=== PATIENT | female | born 1985 ===

== ENCOUNTER 2020-05-11 14:06 | Emergency (ER) | payer OTHER, SELFPAY | END 2020-05-11 18:09 | disposition left against medical advice (07) | PROVIDERS: Emergency Provider Emergency Medicine | DX: R10.30 Lower abdominal pain, unspecified (principal) ==

== ENCOUNTER 2020-05-15 15:39 | Emergency (ER) | payer OTHER, SELFPAY ==
[2020-05-15 15:51] VITALS: BP 152/80; PULSE 87; RESP 18; TEMP 36.8; O2SAT 99; BMI 27.3
--- NOTE | 2020-05-15 17:48 | ED.GENADULT ---
HPI - General Adult General Chief complaint: General Medical Stated complaint: Abdominal pain Time Seen by Provider: 05/15/20 17:21 Source: patient Mode of arrival: ambulatory Limitations: no limitations History of Present Illness HPI narrative: 34-year-old female with no significant past medical history presents with known STI exposure suspected to be chlamydia and herpes. Patient does describe vaginal pain and dysuria, without abnormal bleeding or discharge. Exposure occurred 4 days ago. She does not describe fevers, chills, chest pain or pressure, palpitations, shortness of breath, abdominal pain, abdominal distention, hematuria, and edema. Onset (ago): day(s) (4) Location: genitals Radiation: non-radiation Severity: moderate Severity scale (1-10): 6 Quality: burning Pain Consistency: constant Relieving factors: none Exacerbating factors: movement and other (Voiding) Associated symptoms: denies other symptoms Treatments prior to arrival: none Related Data Previous Rx's Medication Instructions Recorded oxycodone 5 mg PO Q8H PRN #7 tab 05/15/20 valacyclovir 1,000 mg PO Q12H 10 Days #20 tab 05/15/20 Allergies Allergy/AdvReac Type Severity Reaction Status Date / Time No Known Allergies Allergy Unverified 12/12/19 19:40 [No Known Allergies*] Review of Systems Review of Systems: Constitutional: No Fever, No Chills ENT/Mouth: No sore throat, No Rhinorrhea Eyes: No Eye Pain, No Redness Cardiovascular: No Chest Pain, No SOB Respiratory: No Cough, No Sputum, No Wheezing Gastrointestinal: Man Nausea, No Vomiting, No Diarrhea, no abdominal pain, Genitourinary: No irregular bleeding, No Dysuria, No Urinary Frequency, positive labia pain Musculoskeletal: No Myalgias Skin: No rash Neuro: No Weakness, No Headache Psych: No Anxiety/Panic, No Depression Heme/Lymph: No bruising, No Lymphadenopathy Endocrine: No Polyuria, No Polydipsia Yes all other systems are reviewed and are negative [facility] Past Medical History Attestation statement: The following information was validated with the patient. Source: old records reviewed Social History Social History Smoking Status: Current every day smoker Substance Use Type: Marijuana Advance Directives: No Advance Directives Information Provided: No Physical Exam Vital Signs: Vital Signs: Last Vital Signs Temp 98.3 F 05/15/20 15:51 Pulse 87 05/15/20 15:51 Resp 18 05/15/20 15:51 BP 152/80 H 05/15/20 15:51 Pulse Ox 99 05/15/20 15:51 Body Mass Index 27.3 Appearance: Alert. Oriented X3. No acute distress. Eyes: Pupils equal, round and reactive to light. ENT: Pharynx normal. Neck: Normal inspection. Neck supple. CVS: Normal heart rate and rhythm. Pulses normal. Respiratory: No respiratory distress. Breath sounds normal. Abdomen: Soft and nontender. Skin: Skin warm and dry. Normal skin color. Normal skin turgor. Extremities: No lower extremity edema. Neuro: No motor deficit. No sensory deficit. Course Course Course Narrative: 34-year-old female with no significant past history presents with known STI exposure. She does describe labial pain, denies abnormal bleeding or discharge. Her significant other has been having sex with other women, another woman called her earlier today to tell her that she has chlamydia and herpes. Plan is to treat and test for syphilis, chlamydia and gonorrhea. Will treat for her herpes simplex. She has her child with her and would like to defer pelvic exam. Risks discussed and accepted by patient. She will follow-up with [facility]. Patient verbalized understanding of and agrees to plan of care discharge home. Medical Decision Making Differential Diagnosis Differential Diagnosis: Chlamydia, gonorrhea, herpes, trichomoniasis, bacterial vaginosis, candidia Medical Records Medical records reviewed: Yes I reviewed the patient's medical records. Lab Data Lab results reviewed: Yes I reviewed the patient's lab results. Labs: Lab Results 05/15/20 05/15/20 Range/Units 17:45 18:50 Urine Color YELLOW Urine Appearance HAZY Urine pH 5.5 (5.0-8.0) Ur Specific [place] >= 1.030 H (1.005-1.025) Urine Protein NEG (NEG-TRACE) MG/DL Urine Glucose (UA) NEG (NEG) MG/DL Urine Ketones NEG (NEG) MG/DL Urine Blood NEG (NEG) Urine Nitrite NEG (NEG) Ur Leukocyte Esterase NEG (NEG) Urine Test NEGATIVE (NEGATIVE) T.pallidum Ab (EIA) Nonreactive (Nonreactive) Discharge Plan Discharge Clinical Impression: STI (sexually transmitted infection) Patient Disposition: Home, Self-Care Instructions: Sexually Transmitted Diseases (ED) Additional Instructions: You were evaluated and treated for sexually transmitted infection exposure. Please take medications as directed. Consider following up with [facility] for further workup. We treated you for chlamydia, gonorrhea, syphilis and herpes. You do not need further treatment for chlamydia, gonorrhea and syphilis. Please continue to take the valacyclovir as directed. Use oxycodone for pain management if Tylenol and Motrin are infective. Do not engage in sexual activity until all your symptoms have resolved. Thank you for choosing this emergency department for evaluation. Please follow-up with primary care physician as needed. Return to the emergency department for any new, concerning, or worsening symptoms. Prescriptions: New valacyclovir 1 gram tablet 1,000 mg PO Q12H 10 Days Qty: 20 RF: 0 oxycodone 5 mg tablet 5 mg PO Q8H PRN (Reason: pain) Qty: 7 RF: 0 Interventions: ED Discharge Assessment Last Done: 05/15/20 19:25 Discharge Date/Time: 05/15/20 19:40
[2020-05-15 17:59] LABS: Glucose Urine UA NEG (NEG); Leukocyte Esterase Urine NEG (NEG); Nitrite Urine NEG (NEG); PH 5.5 (5.0-8.0); Specific Gravity - Urine >= 1.030 (1.005-1.025); Urine Blood NEG (NEG); Urine Ketones NEG (NEG); Urine Protein NEG (NEG-TRACE)
[2020-05-15 18:01] LABS: Appearance Urine HAZY; Color Urine YELLOW; UPreg QC Valid YES; Urine Pregnancy NEGATIVE (NEGATIVE)
[2020-05-15] MEDS: Azithromycin 500 MG TABLET 1000 MG PO (18:12)
[2020-05-15] MEDS: oxyCODONE HCl Immed Release 5 MG TABLET PO (18:13)
[2020-05-15] MEDS: Penicillin G Benzathine 2,400,000 UNIT/4 ML SYRINGE 2400000 UNIT IM (18:14)
[2020-05-15] MEDS: cefTRIAXone sodium 500 MG, Lidocaine HCl 1 % MPF 1 ML IM (18:15)
[2020-05-15 19:37] LABS: Syphilis Screen Nonreactive (Nonreactive)
[2020-05-18 03:36] LABS: HBS Num1 > 1000.00 mIU/mL (0-7.99); HBc Num1 0.05 S/CO (0.00-0.79); HBsAGNum1 0.16 S/CO (0.00-0.99); HIV AB/AG Nonreactive (Nonreactive); HIV Num 1 0.06 S/CO (0.00-0.99); Hepatitis B Core Antibody Nonreactive (Nonreactive); Hepatitis B Surface Antigen Negative (Negative); ~HepC Num1 0.05 S/CO (0.00-0.79); ~Hepatitis B Surface Antibody REACTIVE (Nonreactive); ~Hepatitis C Antibody Nonreactive (Nonreactive)
[2020-05-18 18:11] LABS: C. trachomatis RNA TMA NOT DETECTED (NOT DETECTED); N. gonorrhoeae RNA TMA NOT DETECTED (NOT DETECTED)
[2020-05-21 07:47] LABS: ~Hepatitis A Antibody IgM Nonreactive (Nonreactive)
== END 2020-05-15 19:40 | disposition home or self-care (01) ==
PROVIDERS: Nurse Practitioner Family; Emergency Provider Internal Medicine
DX: A64 Unspecified sexually transmitted disease (principal); Z20.2 Contact with and (suspected) exposure to infections with a predominantly sexual mode of transmission; R10.2 Pelvic and perineal pain; F17.200 Nicotine dependence, unspecified, uncomplicated; Z71.6 Tobacco abuse counseling; F12.90 Cannabis use, unspecified, uncomplicated; Z79.899 Other long term (current) drug therapy
CPT/HCPCS: 36415; 81003; 81025; 86704; 86706; 86709; 86780; 86803; 87340; 87389; 87491; 87591; 96372; 99284; J0561; J0696

== ENCOUNTER 2020-09-02 21:43 | Emergency (ER) | payer OTHER, SELFPAY ==
--- NOTE | ~2020-09-02 | CT_ITS ---
EXAMINATION: CT ABDOMEN AND PELVIS WITHOUT CONTRAST CLINICAL INFORMATION: Right-sided abdominal/flank pain COMPARISON: 11/12/2019 TECHNIQUE: Multidetector volumetric imaging was performed from the superior aspect of the liver through the pubic symphysis. Sagittal and coronal reformatted images were obtained on the technologist's workstation. This CT examination was performed using dose optimization techniques as appropriate, variously including the following: *Automated exposure control *Adjustment of mA and/or kV according to patient size (this includes techniques or standardized protocols for targeted exams where dose is matched to indication/reason for exam; i.e. extremities or head) *Use of iterative reconstruction technique DLP: 544 mGy-cm FINDINGS: LUNG BASES: The visualized lung bases are unremarkable. LIVER, GALLBLADDER, AND BILIARY TREE: The liver is normal in size, shape, and attenuation. No focal hepatic lesion or biliary ductal dilatation is identified. The gallbladder is unremarkable with no evidence of radiopaque gallstones, gallbladder wall thickening, or obvious pericholecystic inflammatory changes. PANCREAS: Unremarkable. SPLEEN: Unremarkable. ADRENAL GLANDS: Unremarkable. KIDNEYS AND URETERS: The kidneys are normal in size, shape, and attenuation. No hydronephrosis, hydroureter, or calculi seen. No perinephric stranding. BLADDER: Nearly empty and not well evaluated. GASTROINTESTINAL TRACT: The small and large bowel are unremarkable. The appendix is unremarkable. No free fluid or free air is seen. ABDOMINAL WALL: No significant hernia is appreciated. LYMPH NODES: Normal. VASCULAR: Unremarkable. PELVIC VISCERA: Unremarkable. OSSEOUS STRUCTURES: Unremarkable. CT/CT abdomen pelvis wo con IMPRESSION: No acute findings identified in the abdomen/pelvis.
[2020-09-02 22:43] VITALS: BP 120/73; PULSE 113; RESP 28; TEMP 39.5; O2SAT 98; BMI 29.0
[2020-09-02 23:26] LABS: MANUAL DIFF FLAG NO
[2020-09-02 23:27] LABS: Basophils Percent Auto 0.1 % (0-2); Eosinophils Percent Auto 0.2 % (0-4); Hematocrit 38.8 % (37-47); Hemoglobin 12.9 g/dl (12.0-16.0); Imm Gran Abs Auto 0.03 X10*3/uL (0.00-0.03); Imm Gran Pct Auto 0.2 % (0.0-0.4); Lymphocytes Percent Auto 7.8 % (20-40); Mean Corpuscular HGB Conc 33.2 g/dl (31.0-35.0); Mean Corpuscular Hemoglobin 30.7 pg (27.0-33.0); Mean Corpuscular Volume 92.4 fL (80-98); Mean Platelet Volume 10.2 fL (9.4-12.3); Monocytes Absolute Auto 0.6 X10*3/uL (0.1-1.2); Monocytes Percent Auto 4.9 % (2-11); Neutrophils Absolute Auto 11.3 X10*3/uL (2.0-8.3); Neutrophils Percent Auto 86.8 % (45-73); Platelet Count 257 X10*3/uL (160-400); Red Cell Distribution Width 13.1 % (11.0-16.0)
[2020-09-02 23:31] LABS: Appearance Urine CLEAR; Color Urine YELLOW; Glucose Urine UA NEG (NEG); Leukocyte Esterase Urine 2+ (NEG); Nitrite Urine NEG (NEG); PH 5.5 (5.0-8.0); UACC Culture Trigger YES; Urine Blood 1+ (NEG); Urine Ketones NEG (NEG); Urine Protein NEG (NEG-TRACE)
[2020-09-02 23:32] LABS: UPreg QC Valid YES; Urine Pregnancy NEGATIVE (NEGATIVE)
--- NOTE | 2020-09-02 23:37 | ED.ABDPAIN ---
HPI - Abdominal Pain General Chief Complaint: Abdominal Pain Stated Complaint: NEAR SYNCOPE Time Seen by Provider: 09/02/20 23:34 History of Present Illness HPI narrative: Patient is a 34-year-old female presents today with having abdominal pain over the right flank area radiating to the right lower quadrant. Patient feels lightheaded. Leak. Having extreme abdominal pain that is very sharp. Patient positive for nausea. No vomiting. Does not think she is . No bloody stool. No coughing or congestion or upper respiratory symptoms. No diaphoresis. The pain is not worse with movement. Patient from home. Rates the pain is 10/10. It was very abrupt in onset. Never had similar pains in the past. Denies any history of kidney stone. No history of abdominal surgery in the past Related Data Previous Rx's Medication Instructions Recorded oxycodone 5 mg PO Q8H PRN #7 tab 05/15/20 valacyclovir 1,000 mg PO Q12H 10 Days #20 tab 05/15/20 ondansetron 4 mg PO TID PRN 5 Days #10 tab 09/03/20 sulfamethoxazole-trimethoprim 1 tab PO BID #14 tab 09/03/20 [Bactrim DS] Allergies Allergy/AdvReac Type Severity Reaction Status Date / Time No Known Allergies Allergy Unverified 12/12/19 19:40 [No Known Allergies*] Review of Systems Review of Systems Constitutional: No Weight loss, No Fever, No Chills, No Night Sweats, No Fatigue, No Malaise ENT/Mouth: No Hearing loss, No Ear Pain, No Nasal Congestion, No Sinus Pain, No Hoarseness, No sore throat, No Rhinorrhea, No Swallowing Difficulty Eyes: No Eye Pain, No Swelling, No Redness, No Foreign Body, No Discharge, No Vision Changes Cardiovascular: No Chest Pain, No SOB, No Dyspnea on Exertion, No Orthopnea, No Edema, No Palpitations Respiratory: No Cough, No Sputum, No Wheezing, No Smoke Exposure, No Dyspnea Gastrointestinal: No Nausea, No Vomiting, No Diarrhea, No Constipation, positive abdominal Pain, No Hematochezia, No Melena Genitourinary: no irregular bleeding, No Dysuria, No Urinary Frequency, No Hematuria, No Urinary Incontinence, No Urgency, No Flank Pain, No Urinary Flow Changes, No Hesitancy Musculoskeletal: No joint pain, No Myalgias, No Joint Swelling Skin: No Skin Lesions, No rash Neuro: No Weakness, No Numbness, No Paresthesias, No Loss of Consciousness, No Dizziness, No Headache Psych: No Anxiety/Panic, No Depression, No SI/HI/AH/VH, No Social Issues, Heme/Lymph: No Bruising, No Bleeding,No Lymphadenopathy Endocrine: No Polyuria, No Polydipsia, No Temperature Intolerance Physical Exam Vital Signs: Vital Signs: Last Vital Signs Temp 103.1 F H 09/02/20 22:43 Pulse 113 H 09/02/20 22:43 Resp 28 H 09/02/20 22:43 BP 120/73 09/02/20 22:43 Pulse Ox 98 09/02/20 22:43 Body Mass Index 29.0 Appearance: Alert. Oriented X3. No acute distress. Eyes: Pupils equal, round and reactive to light. ENT: Pharynx normal. Neck: Normal inspection. Neck supple. No lymph nodes noted. No crepitus CVS: Normal heart rate and rhythm. Pulses normal. Normal S1 and S2 Respiratory: No respiratory distress. Breath sounds normal. No Wheezing. No rales Abdomen: Soft and nontender. No rigidity. No distention. good BS x4 Skin: Skin warm and dry. Normal skin color. Normal skin turgor. Extremities: No lower extremity edema. Neurovascular intact to all extremities. No Lacerations. No Rash Neuro: Oriented X 3. No motor deficit. No sensory deficit. Moving all extermities. No slurred speech MDM - Abdominal Pain MDM Narrative Medical decision making narrative: Patient had nausea, abdominal pain radiating from the right flank to the right lower quadrant. Given IV fluids. White count slightly elevated at 13. Urine showed evidence of urinary tract infection. CT scan of the abdomen was grossly negative for any acute evidence of kidney stone. No evidence for appendicitis. No obstruction no abscess no perforation. Will discharge patient home on additional antibiotic. Patient has no real flank CVA tenderness. More likely urinary tract infection. We will go ahead and give patient Bactrim. Close follow-up on an outpatient basis. In stable condition. Zofran for nausea. Medical Records Attestation: I reviewed the patient's medical records. Lab Data Attestation: I reviewed the patient's lab results. Result diagrams: 09/02/20 23:19 09/02/20 23:19 Labs: Lab Results 09/02/20 09/02/20 09/02/20 Range/Units 23:19 23:19 23:19 WBC 13.0 H (4.8-10.8) X10*3/uL RBC 4.20 (4.20-5.50) X10*6/uL Hgb 12.9 (12.0-16.0) g/dl Hct 38.8 (37-47) % MCV 92.4 (80-98) fL MCH 30.7 (27.0-33.0) pg MCHC 33.2 (31.0-35.0) g/dl RDW 13.1 (11.0-16.0) % Plt Count 257 (160-400) X10*3/uL MPV 10.2 (9.4-12.3) fL Immature Gran % (Auto) 0.2 (0.0-0.4) % Neut % (Auto) 86.8 H (45-73) % Lymph % (Auto) 7.8 L (20-40) % [place] % (Auto) 4.9 (2-11) % Eos % (Auto) 0.2 (0-4) % Baso % (Auto) 0.1 (0-2) % Lymph # (Auto) 1.0 L (1.2-4.9) X10*3/uL [place] # (Auto) 0.6 (0.1-1.2) X10*3/uL Eos # (Auto) 0.0 (0.0-0.4) X10*3/uL Baso # (Auto) 0.0 (0.0-0.2) X10*3/uL Abs Immat Gran (auto) 0.03 (0.00-0.03) X10*3/uL Absolute Neuts (auto) 11.3 H (2.0-8.3) X10*3/uL Absolute Nucleated RBC 0.000 (0.0-0.012) X10*3/uL Nucleated RBC % (auto) 0.0 (0.0-0.2) /100WBC Sodium 137 (135-145) mmol/L Potassium 4.0 (3.3-5.1) mmol/L Chloride 105 (96-108) mmol/L Carbon Dioxide 22 (22-29) mmol/L Anion Gap 14 (12-20) BUN 7 L (9-16) mg/dL Creatinine 0.79 (0.5-1.4) mg/dL Estim Creat Clear Calc 88.0 Estimated GFR > 60 Random Glucose 101 (60-115) mg/dL Calcium 9.5 (8.4-10.2) mg/dL AST 23 (5-31) U/L ALT 22 (0-31) U/L Alkaline Phosphatase 65 (39-117) U/L Total Protein 7.0 (6.5-8.0) g/dL Albumin 4.6 (3.5-5.0) g/dL Lipase 26 (8-78) U/L Urine Color YELLOW Urine Appearance CLEAR Urine pH 5.5 (5.0-8.0) Ur Specific Fine 1.020 (1.005-1.025) Urine Protein NEG (NEG-TRACE) MG/DL Urine Glucose (UA) NEG (NEG) MG/DL Urine Ketones NEG (NEG) MG/DL Urine Blood 1+ H (NEG) Urine Nitrite NEG (NEG) Ur Leukocyte Esterase 2+ H (NEG) Urine RBC 5-9 H (0) /HPF Urine WBC 15-29 H (0-4) /HPF Ur Squamous Epith Cells 2+ /LPF Amorphous Sediment 1+ /LPF Urine Bacteria 1+ /LPF Urine Mucus 1+ /LPF Urine Test (NEGATIVE) 09/02/20 Range/Units 23:19 WBC (4.8-10.8) X10*3/uL RBC (4.20-5.50) X10*6/uL Hgb (12.0-16.0) g/dl Hct (37-47) % MCV (80-98) fL MCH (27.0-33.0) pg MCHC (31.0-35.0) g/dl RDW (11.0-16.0) % Plt Count (160-400) X10*3/uL MPV (9.4-12.3) fL Immature Gran % (Auto) (0.0-0.4) % Neut % (Auto) (45-73) % Lymph % (Auto) (20-40) % [place] % (Auto) (2-11) % Eos % (Auto) (0-4) % Baso % (Auto) (0-2) % Lymph # (Auto) (1.2-4.9) X10*3/uL [place] # (Auto) (0.1-1.2) X10*3/uL Eos # (Auto) (0.0-0.4) X10*3/uL Baso # (Auto) (0.0-0.2) X10*3/uL Abs Immat Gran (auto) (0.00-0.03) X10*3/uL Absolute Neuts (auto) (2.0-8.3) X10*3/uL Absolute Nucleated RBC (0.0-0.012) X10*3/uL Nucleated RBC % (auto) (0.0-0.2) /100WBC Sodium (135-145) mmol/L Potassium (3.3-5.1) mmol/L Chloride (96-108) mmol/L Carbon Dioxide (22-29) mmol/L Anion Gap (12-20) BUN (9-16) mg/dL Creatinine (0.5-1.4) mg/dL Estim Creat Clear Calc Estimated GFR Random Glucose (60-115) mg/dL Calcium (8.4-10.2) mg/dL AST (5-31) U/L ALT (0-31) U/L Alkaline Phosphatase (39-117) U/L Total Protein (6.5-8.0) g/dL Albumin (3.5-5.0) g/dL Lipase (8-78) U/L Urine Color Urine Appearance Urine pH (5.0-8.0) Ur Specific Fine (1.005-1.025) Urine Protein (NEG-TRACE) MG/DL Urine Glucose (UA) (NEG) MG/DL Urine Ketones (NEG) MG/DL Urine Blood (NEG) Urine Nitrite (NEG) Ur Leukocyte Esterase (NEG) Urine RBC (0) /HPF Urine WBC (0-4) /HPF Ur Squamous Epith Cells /LPF Amorphous Sediment /LPF Urine Bacteria /LPF Urine Mucus /LPF Urine Test NEGATIVE (NEGATIVE) Discharge Plan Discharge Clinical Impression: Urinary tract infection, Dehydration Patient Disposition: Home, Self-Care Instructions: Dehydration (ED), Urinary Tract Infection in Women (ED) Prescriptions: New sulfamethoxazole-trimethoprim [Bactrim DS] 800-160 mg tablet 1 tab PO BID Qty: 14 RF: 0 ondansetron 4 mg tablet,disintegrating 4 mg PO TID PRN (Reason: nausea and vomiting) 5 Days Qty: 10 RF: 0 No Action valacyclovir 1 gram tablet 1,000 mg PO Q12H 10 Days Qty: 20 RF: 0 oxycodone 5 mg tablet 5 mg PO Q8H PRN (Reason: pain) Qty: 7 RF: 0 PMFSH Past Medical History Medical History No known health problems Social History Social History Substance Use Type: Marijuana Advance Directives: No Advance Directives Information Provided: No Patient : No
[2020-09-02 23:39] LABS: Amorphous Sediment Urine 1+ /LPF; Bacteria Urine 1+ /LPF; Mucus Urine 1+ /LPF; Squamous Epithelial Cell Urine 2+ /LPF; UACC CULT YES
[2020-09-02] MEDS: Ketorolac Tromethamine 15 MG/ML VIAL IV (23:50)
[2020-09-02] MEDS: 0.9 % Sodium Chloride 1,000 ML 999 ML IV (23:50)
--- NOTE | 2020-09-02 23:55 | PC.NURSE ---
iv placed to LAC, LABS DRAWN TO LAB. PT AWAITING FOR CT. WILL CONTINUE TO MONTIOR PT.
[2020-09-03 01:39] LABS: Alanine Aminotransferase 22 U/L (0-31); Albumin Level 4.6 g/dL (3.5-5.0); Alkaline Phosphatase 65 U/L (39-117); Anion Gap 14 (12-20); Aspartate Amino Transferase 23 U/L (5-31); Blood Urea Nitrogen 7 mg/dL (9-16); Calcium 9.5 mg/dL (8.4-10.2); Carbon Dioxide 22 mmol/L (22-29); Chloride 105 mmol/L (96-108); Estimated Glomerular Filt Rate > 60; Glucose Random 101 mg/dL (60-115); Lipase 26 U/L (8-78); Sodium 137 mmol/L (135-145)
[2020-09-03 01:40] LABS: Bilirubin Total 0.5 mg/dL (0.0-1.0)
[2020-09-03 01:59] VITALS: PULSE 89; RESP 16
[2020-09-03] MEDS: cefTRIAXone sodium 1 GM in 0.9 % Sodium Chloride 50 ML IV (02:04)
--- NOTE | 2020-09-03 02:09 | PC.NURSE ---
PT MEDICATED PER EMAR. IV REMOVED INTACT. PT VERBALIZED U/S OF D/C INSTRUCTIONS AND LEFT ED AMBULATORY WITH FAMILY.
== END 2020-09-03 02:13 | disposition home or self-care (01) ==
PROVIDERS: Emergency Provider Emergency Medicine Emergency Medical Services; PCP Physician Assistant Medical
DX: N39.0 Urinary tract infection, site not specified (principal); E86.0 Dehydration
CPT/HCPCS: 36415; 74176; 80053; 81001; 81025; 83690; 85025; 87086; 87088; 87186; 96361; 96365; 96374; 99284; J0696; J1885

== ENCOUNTER 2020-09-04 11:59 | Emergency (ER) | payer OTHER, SELFPAY ==
[2020-09-04 13:20] VITALS: BP 129/73; PULSE 92; RESP 18; TEMP 37.1; O2SAT 98; BMI 28.3
[2020-09-04 15:16] VITALS: BP 122/72; PULSE 82; RESP 20; TEMP 37.3; O2SAT 99
--- NOTE | 2020-09-04 15:38 | ED.NAVMDI ---
HPI - Nausea/Vomiting/Diarrhea General Chief complaint: Abdominal Pain Stated complaint: r side abd pain quest uti Time Seen by Provider: 09/04/20 15:12 Source: patient and old records reviewed Mode of arrival: ambulatory Limitations: no limitations History of Present Illness HPI Narrative: 34 yo female with hx of gastritis, dx with UTI on 09/02 started on bactrim states it flared her gastritis and she cannot take it now with n/v - had CT scan at that time as well negative for stones MD elicited complaint: nausea, vomiting and abdominal pain Pertinent past history: other (gastritis) Onset (ago): day(s) (2) Associated nausea: Yes Associated abdominal pain: Yes Location of pain: epigastric and RUQ Radiation: diffuse Pain consistency: constant Severity: moderate Quality: sharp Exacerbating factors: eating and medication Relieving factors: none Context: recent antibiotic use Associated symptoms: loss of appetite, malaise and nausea/vomiting Related Data Previous Rx's Medication Instructions Recorded oxycodone 5 mg PO Q8H PRN #7 tab 05/15/20 valacyclovir 1,000 mg PO Q12H 10 Days #20 tab 05/15/20 ondansetron 4 mg PO TID PRN 5 Days #10 tab 09/03/20 sulfamethoxazole-trimethoprim 1 tab PO BID #14 tab 09/03/20 [Bactrim DS] Allergies Allergy/AdvReac Type Severity Reaction Status Date / Time No Known Allergies Allergy Verified 09/04/20 13:19 [No Known Allergies*] Review of Systems Review of Systems: Constitutional : No Weight loss, No Fever, No Chills ENT/Mouth : No sore throat, No Rhinorrhea Eyes: No Swelling, No Redness Cardiovascular : No Chest Pain, No SOB, NoEdema Respiratory : No Cough, No Sputum, No Wheezing Gastrointestinal : Positive Nausea, Positive Vomiting, no Diarrhea, positive abdominal Pain, No Hematochezia, No Melena Genitourinary : No Dysuria, pos Urinary Frequency, No Hematuria, No Urgency Musculoskeletal : No joint pain, No Myalgias, No Joint Swelling Skin : No Skin Lesions, No rash Neuro : No Weakness, No Numbness, No Dizziness, No Headache Psych : No Anxiety/Panic, No Depression Heme/Lymph: No Bruising, No Lymphadenopathy Endocrine : No Polyuria, No Polydipsia All other systems reviewed and are negative. Gastrointestinal: Gastrointestinal: Reports nausea PMFSH Past Medical History Medical History No known health problems Social History Social History Substance Use Type: Marijuana Advance Directives: No Advance Directives Information Provided: Yes Patient : No Physical Exam Vital Signs: Vital Signs: Last Vital Signs Temp 99.2 F 09/04/20 15:16 Pulse 82 09/04/20 15:16 Resp 20 09/04/20 15:16 BP 122/72 09/04/20 15:16 Pulse Ox 99 09/04/20 15:16 Body Mass Index 28.3 Appearance: Alert. Oriented X3. No acute distress. Anxious Eyes: Pupils equal, round and reactive to light. ENT: Pharynx normal. Neck: Normal inspection. Neck supple. CVS: Normal heart rate and rhythm. Pulses normal. Respiratory: No respiratory distress. Breath sounds normal. Abdomen: Soft and moderate epigastric/RUQ ttp no rebound or guarding Skin: Skin warm and dry. Normal skin color. Normal skin turgor. Extremities: No lower extremity edema. No calf ttp Neuro: Oriented X 3. No motor deficit. No sensory deficit. Course Course Course Narrative: signed out to Dr. Garcia pending workup MDM - Nausea/Vomiting/Diarrhea MDM Narrative Medical decision making narrative: 34 yo female with hx of gastritis, dx with UTI on 09/02 started on bactrim states it flared her gastritis and she cannot take it now with n/v - had CT scan at that time as well negative for stones at this time likely bactrim flared her gastritis given states this is typical for her - at this time anti emetics, IVF, IV rocephin ordered GNR in initial urine culture, switch her from bactrim to ceftin, just had CT scan of abdomen - dispo per results and findings. Lab Data Result diagrams: 09/04/20 15:56 09/04/20 15:56 Discharge Plan Discharge Clinical Impression: Abdominal pain Qualifiers: Abdominal location: epigastric Qualified Code(s): R10.13 - Epigastric pain UTI (urinary tract infection) Qualifiers: Urinary tract infection type: acute cystitis Hematuria presence: without hematuria Qualified Code(s): N30.00 - Acute cystitis without hematuria Prescriptions: No Action valacyclovir 1 gram tablet 1,000 mg PO Q12H 10 Days Qty: 20 RF: 0 oxycodone 5 mg tablet 5 mg PO Q8H PRN (Reason: pain) Qty: 7 RF: 0 sulfamethoxazole-trimethoprim [Bactrim DS] 800-160 mg tablet 1 tab PO BID Qty: 14 RF: 0 ondansetron 4 mg tablet,disintegrating 4 mg PO TID PRN (Reason: nausea and vomiting) 5 Days Qty: 10 RF: 0
[2020-09-04 16:05] LABS: MANUAL DIFF FLAG NO
[2020-09-04 16:06] LABS: Basophils Percent Auto 0.1 % (0-2); Eosinophils Percent Auto 0.2 % (0-4); Hematocrit 37.8 % (37-47); Hemoglobin 12.7 g/dl (12.0-16.0); Imm Gran Abs Auto 0.05 X10*3/uL (0.00-0.03); Imm Gran Pct Auto 0.4 % (0.0-0.4); Lymphocytes Absolute Auto 1.2 X10*3/uL (1.2-4.9); Lymphocytes Percent Auto 8.7 % (20-40); Mean Corpuscular HGB Conc 33.6 g/dl (31.0-35.0); Mean Corpuscular Hemoglobin 30.8 pg (27.0-33.0); Mean Corpuscular Volume 91.7 fL (80-98); Mean Platelet Volume 10.4 fL (9.4-12.3); Monocytes Percent Auto 7.7 % (2-11); Neutrophils Percent Auto 82.9 % (45-73); Platelet Count 248 X10*3/uL (160-400); Red Blood Count 4.12 X10*6/uL (4.20-5.50); Red Cell Distribution Width 13.2 % (11.0-16.0); White Blood Count 13.3 X10*3/uL (4.8-10.8)
[2020-09-04] MEDS: Metoclopramide HCl 10 MG/2 ML VIAL IVPUSH (16:23)
[2020-09-04] MEDS: cefTRIAXone sodium 1 GM in 0.9 % Sodium Chloride 50 ML IV (16:23)
[2020-09-04] MEDS: 0.9 % Sodium Chloride 1,000 ML 999 ML IVCONT ×2 (16:23→18:28)
[2020-09-04] MEDS: Famotidine/PF 20 MG/2 ML VIAL IVPUSH (16:24)
[2020-09-04] MEDS: diphenhydrAMINE HCL 50 MG/ML VIAL 25 MG IVPUSH (16:24)
[2020-09-04] MEDS: Phenazopyridine HCL 100 MG TABLET PO (16:24)
[2020-09-04 16:29] LABS: Lactic Acid 1.2 mmol/L (0.5-2.0)
[2020-09-04 16:31] LABS: Alanine Aminotransferase 48 U/L (0-31); Albumin Level 4.6 g/dL (3.5-5.0); Alkaline Phosphatase 70 U/L (39-117); Anion Gap 15 (12-20); Aspartate Amino Transferase 35 U/L (5-31); Bilirubin Direct 0.2 mg/dL (0.0-0.5); Bilirubin Total 0.3 mg/dL (0.0-1.0); Blood Urea Nitrogen 7 mg/dL (9-16); Calcium 9.3 mg/dL (8.4-10.2); Carbon Dioxide 24 mmol/L (22-29); Chloride 105 mmol/L (96-108); Creatinine Clr Calc Pharmacy 89.1; Estimated Glomerular Filt Rate > 60; Glucose Random 108 mg/dL (60-115); Lipase 14 U/L (8-78); Magnesium 2.3 mg/dL (1.6-2.6); Potassium 3.8 mmol/L (3.3-5.1); Sodium 140 mmol/L (135-145); Total Protein 7.4 g/dL (6.5-8.0)
[2020-09-04 16:58] VITALS: BP 148/88; PULSE 74; RESP 18; O2SAT 99
[2020-09-04] MEDS: LORazepam 2 MG/ML VIAL 1 MG IVPUSH (18:27)
[2020-09-04] MEDS: Prochlorperazine Edisylate 10 MG/2 ML VIAL IVPUSH (18:28)
== END 2020-09-04 21:15 | disposition home or self-care (01) ==
PROVIDERS: Emergency Medicine; Emergency Provider Internal Medicine; PCP Physician Assistant Medical
DX: N30.00 Acute cystitis without hematuria (principal); K29.50 Unspecified chronic gastritis without bleeding; F12.90 Cannabis use, unspecified, uncomplicated
CPT/HCPCS: 36415; 80048; 80076; 83605; 83690; 83735; 85025; 87040; 96361; 96365; 96375; 99284; J0696; J1200; J2060; J2765

== ENCOUNTER 2021-10-06 12:42 | Emergency (ER) | payer OTHER, SELFPAY ==
[2021-10-06 13:07] VITALS: BP 114/56; PULSE 100; RESP 16; TEMP 36.6; O2SAT 100; BMI 26.2
[2021-10-06] MEDS: Ibuprofen 600 MG TABLET PO (13:15)
--- NOTE | 2021-10-06 13:37 | ECG_ITS ---
Test Reason : anxiety Blood Pressure : / mmHG Vent. Rate : 074 BPM Atrial Rate : 074 BPM P-R Int : 138 ms QRS Dur : 072 ms QT Int : 362 ms P-R-T Axes : -05 086 043 degrees QTc Int : 401 ms Normal sinus rhythm Normal ECG No previous ECGs available Referred By: Vicki Bales Electronically Signed By:MARICEL DIAS MD
--- NOTE | 2021-10-06 13:44 | ED_ITS ---
HPI - General Adult General Chief complaint: General Medical Stated complaint: R SIDED STIFFNESS Time Seen by Provider: 10/06/21 13:29 Source: patient Mode of arrival: ambulatory History of Present Illness HPI narrative: 35-year-old female with past medical history anxiety presenting to the ED complaining of right-sided shoulder/trapezius muscle pain radiating to right neck since yesterday. Admits woke up with the pain, denies direct trauma, injury or fall. Also reports increasing anxiety and decreased sleep at home. Denies chest pain, numbness, tingling, weakness, headache, lightheadedness/dizziness Onset (ago): day(s) Related Data Previous Rx's Medication Instructions Recorded oxycodone 5 mg tablet 5 mg PO Q8H PRN pain #7 tabs 05/15/20 valacyclovir 1 gram tablet 1,000 mg PO Q12H 10 days #20 tabs 05/15/20 ondansetron 4 mg disintegrating 4 mg PO TID PRN nausea and 09/03/20 tablet vomiting 5 days #10 tabs sulfamethoxazole 800 1 tab PO BID uti #14 tabs 09/03/20 mg-trimethoprim 160 mg tablet (Bactrim DS) cefuroxime axetil 500 mg tablet 500 mg PO BID 10 days #20 tabs 09/04/20 lorazepam 1 mg tablet (Ativan) 1 mg PO BID PRN anxiety #14 tabs 09/04/20 acetaminophen 500 mg tablet 500 mg PO Q6H PRN fever or pain 10/06/21 (Tylenol Extra Strength) #14 tabs cyclobenzaprine 5 mg tablet 5 mg PO Q8H PRN pain (scale score 10/06/21 7-10) 5 days #14 tabs lidocaine 5 % topical patch 1 patch topical DAILY PRN pain #30 10/06/21 (Lidoderm) ea naproxen 500 mg tablet 500 mg PO BID PRN pain 10 days #20 10/06/21 tabs Allergies Allergy/AdvReac Type Severity Reaction Status Date / Time No Known Allergies Allergy Verified 09/04/20 13:19 [No Known Allergies*] Review of Systems Review of Systems: Constitutional: No Weight loss, No Fever, No Chills ENT/Mouth: No Ear Pain, No Nasal Congestion, No Hoarseness, No sore throat, No Rhinorrhea, No Swallowing Difficulty Cardiovascular: No Chest Pain, No SOB Respiratory: No Cough, No Sputum Gastrointestinal: No Nausea, No Vomiting, No Diarrhea, No Constipation, No Abdominal pain Genitourinary: No Dysuria, No Urinary Frequency, No Hematuria, No Urinary Incontinence/retention, No Flank Pain Musculoskeletal: + joint pain, No Myalgias, No Joint Swelling Skin: No Skin Lesions, No rash Neuro: No Weakness, No Numbness, No Paresthesias Psych: +anxiety Yes all other systems are reviewed and are negative [facility] Past Medical History Attestation statement: The following information was validated with the patient. Medical History No known health problems Social History Social History Alcohol intake: never Patient Tobacco Use Status: Tobacco use Unknown Substance Use Type: Marijuana Advance Directives: No Advance Directives Information Provided: No Physical Exam ED Vital Signs: Vital Signs - 24 hr 10/06/21 13:07 Temperature 97.8 F Pulse Rate 100 Respiratory Rate 16 Blood Pressure 114/56 L Pulse Oximetry 100 Oxygen Delivery Method Room Air BMI result Body Mass Index 26.2 Const General: cooperative, healthy appearing and no acute distress Orientation/consciousness: patient oriented x3 Limitations: no limitations HENMT Head: Yes normal to inspection and Yes atraumatic Ears: hearing grossly normal bilaterally General nose exam: Normal external nose present Face and sinus: Yes normal facial exam Eyes General: appearance normal, both eyes and all related structures EOM: EOMs intact bilaterally Neck Other: No midline cervical spinous tenderness/diaper for deformity. + right-sided cervical MSK tenderness and right trapezius muscle tenderness/spasming reproducing subjective complaints Neck: Yes normal visual inspection, Yes no meningeal signs and No anterior neck swelling Chest Chest palpation & inspection: normal inspection of the chest, no crepitus and tenderness (Right anterior chest wall, reproducing subjective complaint) Resp Effort & Inspection: normal respiratory effort and no respiratory distress Auscultation: clear to auscultation bilaterally Cardio Rate: regular rate Heart sounds: S1 normal heart sound present and S2 normal heart sound present Peripheral pulses: radial pulses present Back/Spine/Pelvis Other: No midline thoracic/lumbar spinous tenderness/step-off or deformity Skin Rashes: no rashes Wounds: no wounds Neuro General: patient oriented x3, tone normal and no meningeal signs Gait exam (Neuro): Normal gait present Motor exam (neuro): 5/5 motor strength present throughout Extrem General: Yes normal to inspection Psych Affect: Anxious affect present Course Course Course Narrative: Patient requesting anxiolytic, discussed cannot give both Valium and anxiolytics, to follow-up with her PCP. She verbalized understanding Medical Decision Making MDM Narrative Medical decision making narrative: 35-year-old female with past medical history anxiety presenting to the ED complaining of right-sided shoulder/trapezius muscle pain radiating to right neck since yesterday. On exam vital signs stable, NAD/nontoxic-appearing, physical exam as above, consistent with MSK spasming/strain. Low concern for fracture, meningitis/encephalitis, cervical dissection or CVT. Symptoms atypical for ACS Plan: Pain management, EKG Medical Records Medical records reviewed: Yes I reviewed the patient's medical records. Lab Data Lab results reviewed: Yes I reviewed the patient's lab results. ECG Data Attestation: I personally reviewed and interpreted this ECG as follows: Interpretation: EKG normal sinus rhythm at a rate of 74. QRS 72. QTC 401. Discharge Plan Discharge Clinical Impression: Trapezius muscle spasm Patient Disposition: Home, Self-Care Additional Instructions: Your pain is likely musculoskeletal Flexeril is a muscle relaxer, take at night as it makes you drowsy, do not drive, drink alcohol, or operate machinery while taking it Naproxen as an anti-inflammatory / pain medication, take with food Lidoderm patches are numbing patches, apply to painful area In addition take Tylenol at home If symptoms persist or worsen, pain becomes unbearable, you developed urinary retention or incontinence, or weakness return to the ED Prescriptions: New acetaminophen [Tylenol Extra Strength] 500 mg tablet 500 mg PO Q6H PRN (Reason: fever or pain) Qty: 14 0RF lidocaine [Lidoderm] 5 % adhesive patch,medicated 1 patch topical DAILY MDD remove after 12 hours PRN (Reason: pain) Qty: 30 0RF Rx Instructions: leave on most painful area for up to 12 hrs naproxen 500 mg tablet 500 mg PO BID PRN (Reason: pain) 10 Days Qty: 20 0RF cyclobenzaprine 5 mg tablet 5 mg PO Q8H PRN (Reason: pain (scale score 7-10)) 5 Days Qty: 14 0RF No Action valacyclovir 1 gram tablet 1,000 mg PO Q12H 10 Days Qty: 20 0RF oxycodone 5 mg tablet 5 mg PO Q8H PRN (Reason: pain) Qty: 7 0RF sulfamethoxazole-trimethoprim [Bactrim DS] 800-160 mg tablet 1 tab PO BID Qty: 14 0RF ondansetron 4 mg tablet,disintegrating 4 mg PO TID PRN (Reason: nausea and vomiting) 5 Days Qty: 10 0RF cefuroxime axetil 500 mg tablet 500 mg PO BID 10 Days Qty: 20 0RF lorazepam [Ativan] 1 mg tablet 1 mg PO BID PRN (Reason: anxiety) Qty: 14 0RF Referrals: Kamila García PA [Primary Care Provider] -
[2021-10-06] MEDS: diazePAM 2 MG TABLET 5 MG PO (14:07)
[2021-10-06] MEDS: Lidocaine 4 % Patch ADH..PATCH 1 PATCH TRANSDERMA (14:07)
== END 2021-10-06 14:39 | disposition home or self-care (01) ==
PROVIDERS: Emergency Provider Emergency Medicine; PCP Physician Assistant Medical
DX: M62.838 Other muscle spasm (principal); M25.511 Pain in right shoulder; F41.9 Anxiety disorder, unspecified; F12.90 Cannabis use, unspecified, uncomplicated; Z79.899 Other long term (current) drug therapy
CPT/HCPCS: 93005; 99283

== ENCOUNTER 2021-12-12 14:44 | Emergency (ER) | payer OTHER, SELFPAY ==
--- NOTE | 2021-12-12 14:45 | ECG_ITS ---
Test Reason : CHEST PAIN Blood Pressure : / mmHG Vent. Rate : 087 BPM Atrial Rate : 087 BPM P-R Int : 128 ms QRS Dur : 070 ms QT Int : 338 ms P-R-T Axes : 000 080 025 degrees QTc Int : 406 ms Normal sinus rhythm Normal ECG When compared with ECG of 06-OCT-2021 13:58, No significant change was found Referred By: Generic ED Physician Electronically Signed By:LUIS MENDOZA
[2021-12-12 14:46] VITALS: BP 128/72; PULSE 91; RESP 18; TEMP 37.5; O2SAT 100; BMI 26.4
[2021-12-12 15:01] LABS: MANUAL DIFF FLAG NO
[2021-12-12 15:03] LABS: Basophils Percent Auto 0.1 % (0-2); Eosinophils Absolute Auto 0.1 X10*3/uL (0.0-0.4); Eosinophils Percent Auto 0.8 % (0-4); Hematocrit 37.5 % (37.0-47.0); Hemoglobin 12.5 g/dl (12.0-16.0); Imm Gran Abs Auto 0.04 X10*3/uL (0.00-0.03); Imm Gran Pct Auto 0.4 % (0.0-0.4); Lymphocytes Absolute Auto 2.3 X10*3/uL (1.2-4.9); Lymphocytes Percent Auto 22.1 % (20-40); Mean Corpuscular HGB Conc 33.3 g/dl (31.0-35.0); Mean Corpuscular Hemoglobin 31.1 pg (27.0-33.0); Mean Corpuscular Volume 93.3 fL (80.0-98.0); Mean Platelet Volume 9.9 fL (9.4-12.3); Monocytes Absolute Auto 0.6 X10*3/uL (0.1-1.2); Monocytes Percent Auto 5.9 % (2-11); Neutrophils Absolute Auto 7.2 x10*3/uL (2.0-8.3); Neutrophils Percent Auto 70.7 % (45-73); Platelet Count 272 X10*3/uL (160-400); Red Blood Count 4.02 X10*6/uL (4.20-5.50); White Blood Count 10.2 X10*3/uL (4.8-10.8)
[2021-12-12 15:19] LABS: Alanine Aminotransferase 37 U/L (0-31); Albumin Level 4.2 g/dL (3.5-5.0); Alkaline Phosphatase 70 U/L (39-117); Anion Gap 14 (12-20); Aspartate Amino Transferase 21 U/L (5-31); Bilirubin Direct < 0.2 mg/dL (0.0-0.5); Bilirubin Total 0.2 mg/dL (0.0-1.0); Blood Urea Nitrogen 12 mg/dL (9-16); Calcium 9.3 mg/dL (8.4-10.2); Carbon Dioxide 27 mmol/L (22-29); Chloride 103 mmol/L (96-108); Creatinine Clr Calc Pharmacy 95.7; Estimated Glomerular Filt Rate > 60; Glucose Random 82 mg/dL (60-115); Potassium 4.3 mmol/L (3.3-5.1); Sodium 140 mmol/L (135-145); Strep A Nucleic Acid Negative (Negative); Total Protein 6.6 g/dL (6.5-8.0)
[2021-12-12 15:24] LABS: Troponin-I High Sensitivity < 3.5 ng/L (<3.5-17.0)
[2021-12-12 15:30] LABS: COVID-19 Test Negative (Negative); IDNOW Serial# 08D9AD1C
[2021-12-12 22:00] VITALS: BP 130/88; PULSE 88; RESP 18; O2SAT 100
[2021-12-12 22:52] LABS: D Dimer High Sensitivity < 150 NG/ML
--- NOTE | 2021-12-13 00:06 | ED_ITS ---
HPI - Chest Pain General Chief Complaint: Chest Pain Stated Complaint: chest pain, sore throat, ears hurt Time Seen by Provider: 12/12/21 22:22 Source: patient Mode of arrival: ambulatory History of Present Illness HPI narrative: 36-year-old female without significant past medical history but has complaints of 3 days of chest discomfort with coughing, malaise, sore throat and congestion. She does report a positive COVID-19 exposure. Otherwise, she denies any fever chills or shortness of breath and denies any GI or symptoms. Related Data Previous Rx's Medication Instructions Recorded oxycodone 5 mg tablet 5 mg PO Q8H PRN pain #7 tabs 05/15/20 valacyclovir 1 gram tablet 1,000 mg PO Q12H 10 days #20 tabs 05/15/20 ondansetron 4 mg disintegrating 4 mg PO TID PRN nausea and 09/03/20 tablet vomiting 5 days #10 tabs sulfamethoxazole 800 1 tab PO BID uti #14 tabs 09/03/20 mg-trimethoprim 160 mg tablet (Bactrim DS) cefuroxime axetil 500 mg tablet 500 mg PO BID 10 days #20 tabs 09/04/20 lorazepam 1 mg tablet (Ativan) 1 mg PO BID PRN anxiety #14 tabs 09/04/20 acetaminophen 500 mg tablet 500 mg PO Q6H PRN fever or pain 10/06/21 (Tylenol Extra Strength) #14 tabs cyclobenzaprine 5 mg tablet 5 mg PO Q8H PRN pain (scale score 10/06/21 7-10) 5 days #14 tabs lidocaine 5 % topical patch 1 patch topical DAILY PRN pain #30 10/06/21 (Lidoderm) ea naproxen 500 mg tablet 500 mg PO BID PRN pain 10 days #20 10/06/21 tabs Allergies Allergy/AdvReac Type Severity Reaction Status Date / Time No Known Allergies Allergy Verified 09/04/20 13:19 [No Known Allergies*] Review of Systems Review of Systems: Pertinent positives and negatives as stated in HPI 10 point review of systems otherwise negative. [facility] Past Medical History Source: nursing notes reviewed Medical History No known health problems Social History Social History Alcohol intake: never Patient Tobacco Use Status: Tobacco use Unknown Substance Use Type: Marijuana Advance Directives: No Physical Exam Vital Signs: Vital Signs: Last Vital Signs Temp 99.5 F 12/12/21 14:46 Pulse 88 12/12/21 22:00 Resp 18 12/12/21 22:00 BP 130/88 12/12/21 22:00 Pulse Ox 100 12/12/21 22:00 O2 Del Method 12/12/21 22:00 BMI result Body Mass Index 26.4 VITAL SIGNS: Reviewed. GENERAL: Well developed, well nourished, in no acute distress. HEAD: Normocephalic/atraumatic EYES: PERRLA, EOMI EARS: Ext canals without abnormality OROPHARYNX: no oral lesions noted, posterior pharynx clear and non-erythematous without noted tonsillar enlargement/erythema/exudates NECK: Supple, no adenopathy LUNGS: Normal breath sounds. No adventitious sounds or accessory muscle use. SpO2<100> CARDIOVASCULAR: Regular rate and rhythm without noted murmurs ABDOMEN: Soft, non-tender, non-distended with bowel sounds. MUSCULOSKELETAL: No tenderness, deformities, or effusions noted on gross inspection. EXTREMITIES: No cyanosis, clubbing or edema. SKIN: Inspection of the skin reveals no rashes NEUROLOGIC: Alert and oriented x 4. Strength and sensation to light touch were grossly intact x 4. Course Course Course Narrative: 36-year-old female with history and clinical presentation consistent with possible viral syndrome given COVID-19 exposure at work. Review of all investigations otherwise negative for acute findings, patient received c ombination analgesics and then was discharged home in stable condition. She was also instructed to retake COVID test in the next 2-3 days. MDM - Chest Pain Lab Data Result diagrams: 12/12/21 14:55 12/12/21 14:55 Labs: Lab Results 12/12/21 12/12/21 12/12/21 Range/Units 14:55 14:55 14:55 WBC 10.2 (4.8-10.8) X10*3/uL RBC 4.02 L (4.20-5.50) X10*6/uL Hgb 12.5 (12.0-16.0) g/dl Hct 37.5 (37.0-47.0) % MCV 93.3 (80.0-98.0) fL MCH 31.1 (27.0-33.0) pg MCHC 33.3 (31.0-35.0) g/dl RDW 14.0 (11.0-16.0) % Plt Count 272 (160-400) X10*3/uL MPV 9.9 (9.4-12.3) fL Immature Gran % (Auto) 0.4 (0.0-0.4) % Neut % (Auto) 70.7 (45-73) % Lymph % (Auto) 22.1 (20-40) % [place] % (Auto) 5.9 (2-11) % Eos % (Auto) 0.8 (0-4) % Baso % (Auto) 0.1 (0-2) % Lymph # (Auto) 2.3 (1.2-4.9) X10*3/uL [place] # (Auto) 0.6 (0.1-1.2) X10*3/uL Eos # (Auto) 0.1 (0.0-0.4) X10*3/uL Baso # (Auto) 0.0 (0.0-0.2) X10*3/uL Abs Immat Gran (auto) 0.04 H (0.00-0.03) X10*3/uL Absolute Neuts (auto) 7.2 (2.0-8.3) x10*3/uL Absolute Nucleated RBC 0.000 (0.0-0.012) X10*3/uL Nucleated RBC % (auto) 0.0 (0.0-0.2) /100WBC D-Dimer High Sensitivty NG/ML Sodium 140 (135-145) mmol/L Potassium 4.3 (3.3-5.1) mmol/L Chloride 103 (96-108) mmol/L Carbon Dioxide 27 (22-29) mmol/L Anion Gap 14 (12-20) BUN 12 (9-16) mg/dL Creatinine 0.68 (0.5-1.4) mg/dL Estim Creat Clear Calc 95.7 Estimated GFR > 60 Random Glucose 82 (60-115) mg/dL Calcium 9.3 (8.4-10.2) mg/dL Total Bilirubin 0.2 (0.0-1.0) mg/dL Direct Bilirubin < 0.2 (0.0-0.5) mg/dL AST 21 (5-31) U/L ALT 37 H (0-31) U/L Alkaline Phosphatase 70 (39-117) U/L Troponin I High Sens < 3.5 (<3.5-17.0) ng/L Total Protein 6.6 (6.5-8.0) g/dL Albumin 4.2 (3.5-5.0) g/dL COVID-19 ([place]) (Negative) COVID-19 Clin Com S. pyogenes GrpA [facility] (Negative) 12/12/21 12/12/21 12/12/21 Range/Units 14:55 14:55 22:30 WBC (4.8-10.8) X10*3/uL RBC (4.20-5.50) X10*6/uL Hgb (12.0-16.0) g/dl Hct (37.0-47.0) % MCV (80.0-98.0) fL MCH (27.0-33.0) pg MCHC (31.0-35.0) g/dl RDW (11.0-16.0) % Plt Count (160-400) X10*3/uL MPV (9.4-12.3) fL Immature Gran % (Auto) (0.0-0.4) % Neut % (Auto) (45-73) % Lymph % (Auto) (20-40) % [place] % (Auto) (2-11) % Eos % (Auto) (0-4) % Baso % (Auto) (0-2) % Lymph # (Auto) (1.2-4.9) X10*3/uL [place] # (Auto) (0.1-1.2) X10*3/uL Eos # (Auto) (0.0-0.4) X10*3/uL Baso # (Auto) (0.0-0.2) X10*3/uL Abs Immat Gran (auto) (0.00-0.03) X10*3/uL Absolute Neuts (auto) (2.0-8.3) x10*3/uL Absolute Nucleated RBC (0.0-0.012) X10*3/uL Nucleated RBC % (auto) (0.0-0.2) /100WBC D-Dimer High Sensitivty < 150 NG/ML Sodium (135-145) mmol/L Potassium (3.3-5.1) mmol/L Chloride (96-108) mmol/L Carbon Dioxide (22-29) mmol/L Anion Gap (12-20) BUN (9-16) mg/dL Creatinine (0.5-1.4) mg/dL Estim Creat Clear Calc Estimated GFR Random Glucose (60-115) mg/dL Calcium (8.4-10.2) mg/dL Total Bilirubin (0.0-1.0) mg/dL Direct Bilirubin (0.0-0.5) mg/dL AST (5-31) U/L ALT (0-31) U/L Alkaline Phosphatase (39-117) U/L Troponin I High Sens (<3.5-17.0) ng/L Total Protein (6.5-8.0) g/dL Albumin (3.5-5.0) g/dL COVID-19 ([place]) Negative (Negative) COVID-19 Clin Com See Note S. pyogenes GrpA [facility] Negative (Negative) Discharge Plan Discharge Clinical Impression: Atypical chest pain, Viral syndrome, Exposure to COVID-19 virus Patient Disposition: Home, Self-Care Instructions: Viral Syndrome (ED), Chest Wall Pain (ED) Additional Instructions: 1. Recommend [id number] Tylenol/ibuprofen as needed for symptoms. Also recommend [id number] Cepacol for sore throat. 2. As you are reporting COVID-19 exposure at your work you are required by CDC to isolate for 5 days. Recommend that you test for COVID-19 in the next 1-2 days. Return to the ER for worsening symptoms. Prescriptions: No Action valacyclovir 1 gram tablet 1,000 mg PO Q12H 10 Days Qty: 20 0RF oxycodone 5 mg tablet 5 mg PO Q8H PRN (Reason: pain) Qty: 7 0RF sulfamethoxazole-trimethoprim [Bactrim DS] 800-160 mg tablet 1 tab PO BID Qty: 14 0RF ondansetron 4 mg tablet,disintegrating 4 mg PO TID PRN (Reason: nausea and vomiting) 5 Days Qty: 10 0RF cefuroxime axetil 500 mg tablet 500 mg PO BID 10 Days Qty: 20 0RF lorazepam [Ativan] 1 mg tablet 1 mg PO BID PRN (Reason: anxiety) Qty: 14 0RF acetaminophen [Tylenol Extra Strength] 500 mg tablet 500 mg PO Q6H PRN (Reason: fever or pain) Qty: 14 0RF lidocaine [Lidoderm] 5 % adhesive patch,medicated 1 patch topical DAILY MDD remove after 12 hours PRN (Reason: pain) Qty: 30 0RF Rx Instructions: leave on most painful area for up to 12 hrs naproxen 500 mg tablet 500 mg PO BID PRN (Reason: pain) 10 Days Qty: 20 0RF cyclobenzaprine 5 mg tablet 5 mg PO Q8H PRN (Reason: pain (scale score 7-10)) 5 Days Qty: 14 0RF Referrals: Kamila García PA [Primary Care Provider] - Stand Alone Forms: Work/School Release
--- NOTE | 2021-12-13 00:21 | PC.NURSE ---
Reviewed discharge with pt. pt verbalized understanding. Pt a&o, no sob or chest pain at discharge. no sign of distress. Pt discharged home.
== END 2021-12-13 00:21 | disposition home or self-care (01) ==
PROVIDERS: Emergency Provider Student in an Organized Health Care Education/Training Program; PCP Physician Assistant Medical
DX: B34.9 Viral infection, unspecified (principal); R07.89 Other chest pain; J02.9 Acute pharyngitis, unspecified; Z20.822 Contact with and (suspected) exposure to COVID-19; Z79.899 Other long term (current) drug therapy
CPT/HCPCS: 36415; 80053; 82248; 84484; 85025; 85379; 87635; 87651; 93005; 99283

== ENCOUNTER 2022-07-14 16:50 | Emergency (ER) | payer MEDICAID, SELFPAY ==
--- NOTE | ~2022-07-14 | XR_ITS ---
EXAMINATION: XR CHEST CLINICAL INFORMATION: Shortness of breath. COMPARISON: 11/12/2019 chest radiograph. TECHNIQUE: Frontal view of the chest was obtained. FINDINGS: No significant abnormality is noted involving the heart, lungs, mediastinum, bony thorax or soft tissues. XR/XR chest 1V IMPRESSION: No acute cardiopulmonary process.
--- NOTE | 2022-07-14 17:01 | ED.URI ---
HPI - URI/Sore Throat General Chief Complaint: Upper Respiratory Symptoms <ACE Almaraz - Last Filed: 07/14/22 17:10> Stated Complaint: fever,sinus congestion, muscle aches <ACE Almaraz - Last Filed: 07/14/22 17:10> Time Seen by Provider: 07/14/22 17:17 <ACE Almaraz - Last Filed: 07/14/22 17:10> Source: patient <Wendy Luque NP - Last Filed: 07/14/22 18:22> Mode of arrival: ambulatory <Wendy Luque NP - Last Filed: 07/14/22 18:22> Limitations: no limitations <MOHIT Caceres Last Filed: 07/14/22 18:22> History of Present Illness HPI Narrative: 36-year-old female with a history of asthma, seasonal allergies, anxiety, depression here with reports of waking with fever of 100.9 today with body aches, chills, sinus pressure. No vomiting, diarrhea, abdominal pain, neck pain or neck stiffness, headache, shortness of breath, skin rash, leg swelling or pain. Patient reports some chest tightness. States she feels like her whole body is tight and achy. <MOHIT Caceres Last Filed: 07/14/22 18:22> Related Data Home Medications: Previous Rx's Medication Instructions Recorded oxycodone 5 mg tablet 5 mg PO Q8H PRN pain #7 tabs 05/15/20 valacyclovir 1 gram tablet 1,000 mg PO Q12H 10 days #20 tabs 05/15/20 ondansetron 4 mg disintegrating 4 mg PO TID PRN nausea and 09/03/20 tablet vomiting 5 days #10 tabs sulfamethoxazole 800 1 tab PO BID uti #14 tabs 09/03/20 mg-trimethoprim 160 mg tablet (Bactrim DS) cefuroxime axetil 500 mg tablet 500 mg PO BID 10 days #20 tabs 09/04/20 lorazepam 1 mg tablet (Ativan) 1 mg PO BID PRN anxiety #14 tabs 09/04/20 acetaminophen 500 mg tablet 500 mg PO Q6H PRN fever or pain 10/06/21 (Tylenol Extra Strength) #14 tabs cyclobenzaprine 5 mg tablet 5 mg PO Q8H PRN pain (scale score 10/06/21 7-10) 5 days #14 tabs lidocaine 5 % topical patch 1 patch topical DAILY PRN pain #30 10/06/21 (Lidoderm) ea naproxen 500 mg tablet 500 mg PO BID PRN pain 10 days #20 10/06/21 tabs <ACE Almaraz - Last Filed: 07/14/22 17:10> Allergies/Adverse Reactions: Allergies Allergy/AdvReac Type Severity Reaction Status Date / Time No Known Allergies Allergy Verified 07/14/22 17:05 [No Known Allergies*] <ACE Almaraz - Last Filed: 07/14/22 17:10> Review of Systems Review of Systems: Yes all other systems are reviewed and are negative <Wendy Luque NP - Last Filed: 07/14/22 18:22> Constitutional: Constitutional: Reports no additional constitutional complaints, Reports body ache(s), Reports chills, Reports fever(s), Denies headache(s) and Denies weakness <Wendy Luque NP - Last Filed: 07/14/22 18:22> Eyes: Eyes: Reports no additional eye complaints and Denies change in vision <Wendy Luque NP - Last Filed: 07/14/22 18:22> ENT: Reports system reviewed and no additional complaints, except as documented, Denies dizziness, Denies headache(s), Denies nasal congestion, Denies nasal discharge, Denies neck pain, Reports sinus pain and Reports sinus pressure <Wendy Luque NP - Last Filed: 07/14/22 18:22> Cardiovascular: Cardiovascular: Reports no additional cardiovascular complaints, Denies chest pain, Denies leg edema and Denies dyspnea <Wendy Luque NP - Last Filed: 07/14/22 18:22> Respiratory: Respiratory: Reports no additional respiratory complaints, Denies cough and Denies dyspnea <Wendy Luque NP - Last Filed: 07/14/22 18:22> Gastrointestinal: Gastrointestinal: Reports no additional gastrointestinal complaints, Denies abdominal pain, Denies diarrhea, Denies nausea and Denies vomiting <Wendy Luque NP - Last Filed: 07/14/22 18:22> Genitourinary: Genitourinary: Reports no additional female genitourinary complaints and Denies urinary incontinence <Wendy Luque NP - Last Filed: 07/14/22 18:22> Musculoskeletal: Musculoskeletal: Reports no additional musculoskeletal complaints, Denies back pain, Denies arthralgias, Denies joint swelling, Denies neck pain, Denies numbness and Denies tingling <Wendy Luque NP - Last Filed: 07/14/22 18:22> Integumentary/Breasts: Skin/Breast: Reports system reviewed and no additional complaints, except as docu and Denies rash <Wendy Luque NP - Last Filed: 07/14/22 18:22> Neurologic: Reports system reviewed and no additional complaints, except as documented, Denies Abnormal speech present, Denies dizziness, Denies headache(s), Denies numbness, Denies tingling and Denies weakness <Wendy Luque NP - Last Filed: 07/14/22 18:22> PMFSH Past Medical History Attestation statement: The following information was validated with the patient. <Wendy Luque NP - Last Filed: 07/14/22 18:22> Source: old records reviewed and nursing notes reviewed <Wendy Luque NP - Last Filed: 07/14/22 18:22> Medical History: Medical History No known health problems <ACE Almaraz - Last Filed: 07/14/22 17:10> Social History Social History: Social History Alcohol intake: never Patient Tobacco Use Status: Tobacco use Unknown Smoked in Last 30 Days: Yes Substance Use Type: Marijuana Substance Use Frequency: Chronic Longstanding Advance Directives: No Advance Directives Information Provided: No <ACE Almaraz - Last Filed: 07/14/22 17:10> Physical Exam Vital Signs: Vital Signs: Last Vital Signs Temp 99.2 F 07/14/22 17:06 Pulse 87 07/14/22 17:06 Resp 18 07/14/22 17:06 BP 108/65 07/14/22 17:06 Pulse Ox 98 07/14/22 17:25 O2 Del Method Room Air 07/14/22 17:25 BMI result Body Mass Index 28.7 <Vicki Bales PA - Last Filed: 07/14/22 17:10> Vital Signs: Last Vital Signs Temp 99.2 F 07/14/22 17:06 Pulse 87 07/14/22 17:06 Resp 18 07/14/22 17:06 BP 108/65 07/14/22 17:06 Pulse Ox 98 07/14/22 17:25 O2 Del Method Room Air 07/14/22 17:25 BMI result Body Mass Index 28.7 <Wendy Luque NP - Last Filed: 07/14/22 18:22> Const: General: cooperative, healthy appearing, comfortable and no acute distress <Wendy Luque NP - Last Filed: 07/14/22 18:22> Orientation/consciousness: patient oriented x3 <Wendy Luque NP - Last Filed: 07/14/22 18:22> Limitations: no limitations <Wendy Luque NP - Last Filed: 07/14/22 18:22> HEENT: Head: Yes normal to inspection <Wendy Luque NP - Last Filed: 07/14/22 18:22> Ears: hearing grossly normal bilaterally and TM's normal bilaterally <Wendy Luque NP - Last Filed: 07/14/22 18:22> General nose exam: Normal external nose present <Wendy Luque NP - Last Filed: 07/14/22 18:22> Face and sinus: Yes normal facial exam <Wendy Luque NP - Last Filed: 07/14/22 18:22> Mouth: Normal oral and palatal mucosa present <Wendy Luque NP - Last Filed: 07/14/22 18:22> Throat: Yes posterior oropharynx normal <Wendy Luque NP - Last Filed: 07/14/22 18:22> Eyes: General: appearance normal, both eyes and all related structures <Wendy Luque EXPANDER MACHINE OPERATOR - Last Filed: 07/14/22 18:22> Pupils: Equal, round and reactive pupils present <Wendy Luque EXPANDER MACHINE OPERATOR - Last Filed: 07/14/22 18:22> Neck: Neck: Yes normal visual inspection, Yes full ROM, Yes no lymphadenopathy and Yes no meningeal signs <Wendy Luque EXPANDER MACHINE OPERATOR - Last Filed: 07/14/22 18:22> Chest: Chest palpation & inspection: normal inspection of the chest <Wendy Luque EXPANDER MACHINE OPERATOR - Last Filed: 07/14/22 18:22> Resp: Effort & Inspection: normal respiratory effort <Wendy Luque EXPANDER MACHINE OPERATOR - Last Filed: 07/14/22 18:22> Auscultation: clear to auscultation bilaterally <Wendy Luque EXPANDER MACHINE OPERATOR - Last Filed: 07/14/22 18:22> Cardio: Rate: regular rate <Wendy Luque EXPANDER MACHINE OPERATOR - Last Filed: 07/14/22 18:22> Rhythm: regular rhythm <Wendy Luque EXPANDER MACHINE OPERATOR - Last Filed: 07/14/22 18:22> Peripheral pulses: Peripheral pulses 2+ throughout <Wendy Luque EXPANDER MACHINE OPERATOR - Last Filed: 07/14/22 18:22> GI: Inspection: Yes normal to inspection <Wendy Luque EXPANDER MACHINE OPERATOR - Last Filed: 07/14/22 18:22> Palpation (GI): Soft to palpation and nontender <Wendy Luque EXPANDER MACHINE OPERATOR - Last Filed: 07/14/22 18:22> Auscultation: normal bowel sounds <Wendy Luque EXPANDER MACHINE OPERATOR - Last Filed: 07/14/22 18:22> Back/Spine/Pelvis: Thoracic/Lumbar Spine: thoracic and lumbar spine normal to inspection <Wendy Luque EXPANDER MACHINE OPERATOR - Last Filed: 07/14/22 18:22> Skin: General skin exam: no rashes or lesions noted <Wendy Luque EXPANDER MACHINE OPERATOR - Last Filed: 07/14/22 18:22> Neuro: General: patient oriented x3, no meningeal signs, no focal motor deficits and normal sensation to monofilament <Wendy Luque NP - Last Filed: 07/14/22 18:22> Cranial nerves: Yes Equal, round and reactive pupils present <Wendy Luque NP - Last Filed: 07/14/22 18:22> Cognition (Neuro): normal cognition <Wedny Luque NP - Last Filed: 07/14/22 18:22> Speech: No Abnormal speech present <Wendy Luque NP - Last Filed: 07/14/22 18:22> Gait exam (Neuro): Normal gait present <Wendy Luque NP - Last Filed: 07/14/22 18:22> Motor exam (neuro): 5/5 motor strength present throughout <Wendy Luque NP - Last Filed: 07/14/22 18:22> Extrem: General: Yes normal to inspection, Yes no pedal edema and Yes no calf tenderness <Wendy Luque NP - Last Filed: 07/14/22 18:22> Course Course Course Narrative: RME: 36yo F w/no sig PMHx c/o fever Tmax 100.9 (took Motrin around 7AM), myalgias, CHAUDHARI / sinus pressure x today. Also reports SOB and chest tightness from her congestion. Denies sick contacts or travel VSS, sating 98% on RA EKG, CXR, COVID/FLU ordered Full HPI, ROS and PE to be performed by primary ED provider. <ACE Almaraz - Last Filed: 07/14/22 17:10> Reevaluation(s) Reevaluation #1: X-ray shows no acute finding. EKG is normal. COVID and flu testing were negative. Likely viral syndrome. Reviewed worrisome signs and symptoms of when to return to the emergency room. Comfortable plan for discharge home. <Wendy Luque NP - Last Filed: 07/14/22 18:22> Medical Decision Making Medical Decision Making MDM Narrative: 36-year-old female here with waking with low-grade fever, chills, body aches, sinus congestion, chest tightness. Exam is benign. Patient is well-appearing Will obtain chest x-ray, EKG, viral testing Likely viral syndrome <Wendy Luque NP - Last Filed: 07/14/22 18:22> Differential Diagnosis Differential Diagnoses: The differential diagnosis associated with the presentation includes <Wendy Luque NP - Last Filed: 07/14/22 18:22> Viral syndrome Less likely PE with perc score 0, ACS, pneumonia, meningitis/encephalitis, abdominal process, UTI <Wendy Luque NP - Last Filed: 07/14/22 18:22> Lab Data MDM Lab Attestation statement: I reviewed the patient's lab results. <Wendy Luque NP - Last Filed: 07/14/22 18:22> Labs: Lab Results 07/14/22 07/14/22 Range/Units 17:27 17:27 COVID-19 (ALEXA) Negative (Negative) COVID-19 Clin Com See Note Influenza Type A (CLARY) Negative (Negative) Influenza Type B (CLARY) Negative (Negative) Influenza A & B Note See Note <ACE Almaraz - Last Filed: 07/14/22 17:10> Lab Results 07/14/22 07/14/22 Range/Units 17:27 17:27 COVID-19 (ALEXA) Negative (Negative) COVID-19 Clin Com See Note Influenza Type A (CLARY) Negative (Negative) Influenza Type B (CLARY) Negative (Negative) Influenza A & B Note See Note <Wendy Luque NP - Last Filed: 07/14/22 18:22> Independent Interpretation I performed an independent interpretation of an: Plain X-Ray <Wendy Luque NP - Last Filed: 07/14/22 18:22> Interpretation: I independently reviewed the chest x-ray and agree with radiologist's report Item we reviewed the EKG which was normal sinus rhythm with a rate of 76, normal [place], normal QRS, no QT <Wendy Luque NP - Last Filed: 07/14/22 18:22> Radiology Impression Discussion of test interpretation with radiology: I have reviewed the radiologist's reading. <Wendy Luque NP - Last Filed: 07/14/22 18:22> Radiologist Impression: [address] [address] XRay Report Signed Patient: Karol Figueredo MR#: [id number] : 1985 Acct:[id number] Age/Sex: 36 / F ADM Date: 07/14/22 Loc: HO.ED Attending Dr: Ordering Physician: Vicki Bales Date of Service: 07/14/22 Procedure(s): XR chest 1V Accession Number(s): [id number] cc: Vicki Bales~ EXAMINATION: XR CHEST CLINICAL INFORMATION: Shortness of breath. COMPARISON: 11/12/2019 chest radiograph. TECHNIQUE: Frontal view of the chest was obtained. FINDINGS: No significant abnormality is noted involving the heart, lungs, mediastinum, bony thorax or soft tissues. XR/XR chest 1V IMPRESSION: No acute cardiopulmonary process. ? <Wendy Luque NP - Last Filed: 07/14/22 18:22> Discharge Plan Discharge Clinical Impression: Viral infection <ACE Almaraz - Last Filed: 07/14/22 17:10> Patient Disposition: Home, Self-Care <ACE Almaraz - Last Filed: 07/14/22 17:10> Instructions: Viral Syndrome (ED) <ACE Almaraz - Last Filed: 07/14/22 17:10> Additional Instructions: Your testing for flu and COVID are negative Your x-ray shows no pneumonia Your EKG is normal Please alternate Tylenol or Motrin for pain or fever Increase fluids, rest Stay home if you have a fever <ACE Almaraz - Last Filed: 07/14/22 17:10> Prescriptions: No Action valacyclovir 1 gram tablet 1,000 mg PO Q12H 10 Days Qty: 20 0RF oxycodone 5 mg tablet 5 mg PO Q8H PRN (Reason: pain) Qty: 7 0RF sulfamethoxazole-trimethoprim [Bactrim DS] 800-160 mg tablet 1 tab PO BID Qty: 14 0RF ondansetron 4 mg tablet,disintegrating 4 mg PO TID PRN (Reason: nausea and vomiting) 5 Days Qty: 10 0RF cefuroxime axetil 500 mg tablet 500 mg PO BID 10 Days Qty: 20 0RF lorazepam [Ativan] 1 mg tablet 1 mg PO BID PRN (Reason: anxiety) Qty: 14 0RF acetaminophen [Tylenol Extra Strength] 500 mg tablet 500 mg PO Q6H PRN (Reason: fever or pain) Qty: 14 0RF lidocaine [Lidoderm] 5 % adhesive patch,medicated 1 patch topical DAILY MDD remove after 12 hours PRN (Reason: pain) Qty: 30 0RF Rx Instructions: leave on most painful area for up to 12 hrs naproxen 500 mg tablet 500 mg PO BID PRN (Reason: pain) 10 Days Qty: 20 0RF cyclobenzaprine 5 mg tablet 5 mg PO Q8H PRN (Reason: pain (scale score 7-10)) 5 Days Qty: 14 0RF <ACE Almaraz - Last Filed: 07/14/22 17:10> Referrals: Physician,Unknown J [Primary Care Provider] - 1 week <ACE Almaraz - Last Filed: 07/14/22 17:10> Stand Alone Forms: Work/School Release <ACE Almaraz - Last Filed: 07/14/22 17:10>
[2022-07-14 17:06] VITALS: BP 108/65; PULSE 87; RESP 18; TEMP 37.3; O2SAT 98; BMI 28.7
--- NOTE | 2022-07-14 17:06 | ECG_ITS ---
Test Reason : CHEST PAIN Blood Pressure : / mmHG Vent. Rate : 076 BPM Atrial Rate : 076 BPM P-R Int : 138 ms QRS Dur : 074 ms QT Int : 366 ms P-R-T Axes : -13 084 031 degrees QTc Int : 411 ms Normal sinus rhythm with sinus arrhythmia Normal ECG When compared with ECG of 12-DEC-2021 14:51, No significant change was found Referred By: Vicki Bales Electronically Signed By:BEBA SUAREZ
[2022-07-14 17:25] VITALS: O2SAT 98
--- OUTSIDE RECORDS SUMMARY | 2022-07-14 17:52 | XMS_ITS | Continuity of Care Document ---
Author Name Unknown Organization [facility] ter Address [address] [place] [id number]- Care Team Providers Care Rad Technologist Name Role Phone Jasper Machado MD Primary Care Physician Encounter [facility] [place] Date(s): 11/28/21 - 11/29/[address] [address]- Encounter Diagnosis Chest pain(Final) - 11/28/21 Vomiting(Final) - 11/28/21 Drug intoxication(Final) - 11/28/21 Abdominal pain(Final) - 11/28/21 Discharge Disposition: A-D/C Home Attending Physician: Ita Escudero DO Admitting Physician: Ita Escudero DO Referring Physician: Not on Staff, Referring MD Allergies, Adverse Reactions, Alerts No Known Medication Allergies Medications Diflucan 150 mg oral tablet See Instructions, 1 tablet By Mouth now, repeat dose in 72 hours, # 2 tablet, 0 Refills, Soft Stop,07/07/20 9:40:00 EDT, [facility]/pharmacy #[id number], Partial fill upon patient request if the prescription is for a schedule II opioid drug., 155, cm, 07/01/20 9:... Start Date: 07/07/20 Status: Ordered traZODone 100 mg oral tablet See Instructions, TAKE 1 TABLET AT BEDTIME NEEDED INSOMNIA, # 30 tablet, Refills 1, Tot. Refills1, Maintenance, 06/06/19 15:54:00 EDT, Instructions Replace Required Details, Route to Pharmacy Electronically, [facility]/pharmacy #[id number], 155, cm, 04/19/19 1... Start Date: 06/06/19 Status: Ordered Results Radiology Reports * Exam Date Time Procedure Performing Provider Status 11/28/21 2:06 PM Chest Portable Kim Phillips; Danyel (V erified) Notes: (Chest Portable) Reason For Exam: Shortness of Breath RESULT: Chest Portable Chest Portable Hx of Present Illness: pt states she was drinking and also was given an E pill (ecstasy pill) unable to sit still vomiting not feeling well since 8am; Reason: Shortness of Breath; Clinical Question(s): CHF COMPARISON: 05/22/2017 FINDINGS: LINES AND TUBES: None. LUNGS AND PLEURA: Clear lungs. Normal pulmonary vascularity. No pleural effusion. No pneumothorax. HEART, MEDIASTINUM AND PRATEEK: Heart is normal in size. Normal upper mediastinal and hilar contour. BONES AND SOFT TISSUES: No acute abnormality. IMPRESSION: Negative chest. WSN: [id number] Ordering Physician: Davey Navarro Dictated By: Gordo Milian MD Dictated Date/Time: 11/28/21 2:32 pm Reviewed By: Gordo Milian MD Signed By: Gordo Milian MD Signed Date/Time: 11/28/21 2:32 pm Transcribed By: BRADLEY Transcribed Date/Time: 11/28/21 2:31 pm Vital Signs Most recent to oldest [Reference Range]: 1 2 3 Weight 63 kg (11/28/21 1:19 PM) Oxygen Saturation [94-100 %] 96 % (11/28/21 11:00 PM) 98 % (11/28/21 7:29 PM) 99 % (11/28/21 3:21 PM) Pulse Rate [55-90 bpm] 77 bpm (11/28/21 11:00 PM) 61 bpm (11/28/21 7:29 PM) 69 bpm (11/28/21 3:21 PM) Blood Pressure [90-138/55-84 mm Hg] 118/72mm Hg (11/28/21 11:00 PM) 118/70mm Hg (11/28/21 7:29 PM) 129/80mm Hg (11/28/21 3:21 PM) Respiratory Rate [16-30 br/min] 18 br/min (11/28/21 11:00 PM) 16 br/min (11/28/21 7:29 PM) 17 br/min (11/28/21 3:21 PM) Temperature [96.8-100.4 DegF] 98.3 DegF (11/28/21 11:00 PM) 98 DegF (11/28/21 7:29 PM) 98.6 DegF (11/28/21 1:13 PM) Mode of Delivery (Oxygen) Room air (11/28/21 11:00 PM) Room air (11/28/21 7:29 PM) Room air (11/28/21 3:21 PM) Blood pressure sites Arm, left (11/28/21 11:00 PM) Arm, right (11/28/21 7:29 PM) Arm, right (11/28/21 3:21 PM) Temperature Route Oral (11/28/21 11:00 PM) Oral (11/28/21 7:29 PM) Oral (11/28/21 1:13 PM) Dry Weight 63 kg (11/28/21 1:19 PM) Weight Obtained Via Patient/family state d (11/28/21 1:19 PM) Dry Weight Obtained Via Patient/family s tated (11/28/21 1:19 PM) Social History Social History Type Response Smoking Status 10 or more cigarette s (1/2 pack or more)/day in last 30 days entered on: 04/19/19 Sex Portable XR Chest Views * [facility] , CIS S: TRANSCRIBE Gordo Milian MD: VERIFY Event Display: Result: Authored Date: [id number] Chest Portable Hx of Present Illness: pt states she was drinking and also was given an E pill (ecstasy pill) unable to sit still vomiting not feeling well since 8am; Reason: Shortness of Breath; Clinical Question(s): CHF COMPARISON: 05/22/2017 FINDINGS: LINES AND TUBES: None. LUNGS AND PLEURA: Clear lungs. Normal pulmonary vascularity. No pleural effusion. No pneumothorax. HEART, MEDIASTINUM AND PRATEEK: Heart is normal in size. Normal upper mediastinal and hilar contour. BONES AND SOFT TISSUES: No acute abnormality. IMPRESSION: Negative chest. WSN: [id number] Ordering Physician: Davey Navarro Dictated By: Gordo Milian MD Dictated Date/Time: 11/28/21 2:32 pm Reviewed By: Gordo Milian MD Signed By: Gordo Milian MD Signed Date/Time: 11/28/21 2:32 pm Transcribed By: BRADLEY Transcribed Date/Time: 11/28/21 2:31 pm Care Team Personnel Name: Carson Machado MDhen H Address: [address] [place] [address]-
--- OUTSIDE RECORDS SUMMARY | 2022-07-14 17:52 | XMS_ITS | Continuity of Care Document ---
Author Name Unknown Organization [facility] ter Address [address] [place] [id number]- Care Team Providers Care Thread Roller Name Role Phone Jeannette VILLEDA, Jasper Ontiveros Primary Care Physician Unava ilable [place] [facility] [place]/08[place] - 05/08/[address] [address]- [facility] Attending Physician: Suzie Ceja NP Allergies, Adverse Reactions, Alerts No Known Medication Allergies Medications nicotine 14 mg/24 hr transdermal film, extended release 1 patch, Topically, Daily, for 30 days, # 30 patch, 0 Refills, Acute 06/07/19 12:46:00 EDT, 05/08/19 12:46:00 EST, Patch, [facility]/pharmacy #1, 1 patch Topically Daily,x30 days, 155, cm, 04/19/19 11:47:00 EST, Height Start Date: 05/08/19 Stop Date: 06/07/19 Status: Ordered traZODone 100 mg oral tablet 100 mg, 1, tablet, By Mouth, Daily at bedtime, PRN, # 30 tablet, Refills 1, Tot. Refills 1, Maintenance, Insomnia, 05/08/19 12:45:00 EST, Route to Pharmacy Electronically, [facility]/pharmacy #[id number], 155, cm, 04/19/19 11:47:00 EST, Height Start Date: 05/08/19 Stop Date: 07/07/19 Status: Ordered Trileptal 150 mg oral tablet 150 mg, 1, tablet, By Mouth, 2 times a day, # 60 tablet, Refills 1, Tot. Refills 1, Maintenance, 05/08/19 12:45:00 EST, Route to Pharmacy Electronically, [facility]pharmacy #[id number], 155, cm, 04/19/19 11:47:00 EST, Height Start Date: 05/08/19 Stop Date: 07/07/19 Status: Ordered Wellbutrin SR 100 mg/12 hours oral tablet, extended release 1 tablet = 100 mg, By Mouth, Daily in AM, # 30 tablet, 1 Refills, Maintenance, 05/08/19 12:44:00 EST, [facility]/pharmacy #[id number], 155, cm, 04/19/19 11:47:00 EST, Height Start Date: 05/08/19 Stop Date: 07/07/19 Status: Ordered Social History Social History Type Response Smoking Status 10 or more cigarette s (1/2 pack or more)/day in last 30 days entered on: 04/19/19 Sex
--- OUTSIDE RECORDS SUMMARY | 2022-07-14 17:52 | XMS_ITS | Continuity of Care Document ---
Author Name Unknown Organization [facility] Address [address] [place] [address]- Care Team Providers Care Eyewear Consultant Name Role Phone Jeannette VILLEDA, Jasper Ontiveros Primary Care Physician [place] [facility] [place] 08/26/20 - 09/25/[address] [address]- Attending Physician: Admtr, [id number] Admitting Physician: Admtr, Ar8 Referring Physician: Admtr, Ar8 Allergies, Adverse Reactions, Alerts No Known Medication Allergies Medications Diflucan 150 mg oral tablet See Instructions, 1 tablet By Mouth now, repeat dose in 72 hours, # 2 tablet, 0 Refills, Soft Stop,07/07/20 9:40:00 EDT, [facility]/pharmacy #[id number], Partial fill upon patient request if the prescription is for a schedule II opioid drug., 155, cm, 07/01/20 9:... Start Date: 07/07/20 Status: Ordered traZODone 100 mg oral tablet See Instructions, TAKE 1 TABLET AT BEDTIME NEEDED INSOMNIA, # 30 tablet, Refills 1, Tot. Refills1, Maintenance, 06/06/19 15:54:00 EDT, Instructions Replace Required Details, Route to Pharmacy Electronically, [facility] #[id number], 155, cm, 04/19/19 1... Start Date: 06/06/19 Status: Ordered Social History Social History Type Response Smoking Status 10 or more cigarette s (1/2 pack or more)/day in last 30 days entered on: 04/19/19 Sex
[2022-07-14 18:00] LABS: COVID-19 Test Negative (Negative); IDNOW Serial# 08D9AD1C; IDNOW Serial# 9DB6401D; Influenza A Negative (Negative); Influenza B2 Negative (Negative)
== END 2022-07-14 18:28 | disposition home or self-care (01) ==
PROVIDERS: Physician Assistant; Emergency Provider Emergency Medicine Emergency Medical Services
DX: B34.9 Viral infection, unspecified (principal); Z20.822 Contact with and (suspected) exposure to COVID-19; R50.9 Fever, unspecified; R06.02 Shortness of breath; F12.90 Cannabis use, unspecified, uncomplicated; Z79.899 Other long term (current) drug therapy
CPT/HCPCS: 71045; 87502; 87635; 93005; 99283; 99284

== ENCOUNTER 2022-09-02 07:38 | Emergency (ER) | payer MEDICAID, SELFPAY ==
[2022-09-02 07:50] VITALS: BP 121/78; PULSE 94; RESP 19; TEMP 36.6; O2SAT 98; BMI 26.4
--- NOTE | 2022-09-02 08:13 | ED_ITS ---
HPI - Eye Problem General Chief complaint: Eye Problems Stated complaint: L eye swelling Time Seen by Provider: 09/02/22 08:10 Source: patient, RN notes reviewed and old records reviewed Mode of arrival: ambulatory History of Present Illness HPI Narrative: 36-year-old female with no significant past medical history presenting to the ED complaining of left eye swelling, erythema, and discomfort x5 days. Denies ring glasses or contacts. Denies injury/trauma to eye, vision loss/change, drainage MD chief complaint: eye pain, eye redness and eye injury Onset (ago): day(s) Related Data Previous Rx's Medication Instructions Recorded oxycodone 5 mg tablet 5 mg PO Q8H PRN pain #7 tabs 05/15/20 valacyclovir 1 gram tablet 1,000 mg PO Q12H 10 days #20 tabs 05/15/20 ondansetron 4 mg disintegrating 4 mg PO TID PRN nausea and 09/03/20 tablet vomiting 5 days #10 tabs sulfamethoxazole 800 1 tab PO BID uti #14 tabs 09/03/20 mg-trimethoprim 160 mg tablet (Bactrim DS) cefuroxime axetil 500 mg tablet 500 mg PO BID 10 days #20 tabs 09/04/20 lorazepam 1 mg tablet (Ativan) 1 mg PO BID PRN anxiety #14 tabs 09/04/20 acetaminophen 500 mg tablet 500 mg PO Q6H PRN fever or pain 10/06/21 (Tylenol Extra Strength) #14 tabs cyclobenzaprine 5 mg tablet 5 mg PO Q8H PRN pain (scale score 10/06/21 7-10) 5 days #14 tabs lidocaine 5 % topical patch 1 patch topical DAILY PRN pain #30 10/06/21 (Lidoderm) ea naproxen 500 mg tablet 500 mg PO BID PRN pain 10 days #20 10/06/21 tabs erythromycin 5 mg/gram (0.5 %) eye 0.5 inch ophthalmic (eye) QID 7 09/02/22 ointment days #3.5 grams Allergies Allergy/AdvReac Type Severity Reaction Status Date / Time No Known Allergies Allergy Verified 09/02/22 07:50 [No Known Allergies*] Review of Systems Review of Systems: Constitutional: No Fever, No Chills,No Fatigue, No Malaise ENT/Mouth: No Hearing loss, No Ear Pain, No Nasal Congestion, No sore throat, No Rhinorrhea, No Swallowing Difficulty Eyes: + Eye Pain, + Swelling, + Redness, No Foreign Body, No Discharge, No Vision Changes Cardiovascular: No Chest Pain, No SOB Respiratory: No Cough, No Sputum, No Dyspnea Skin: No Skin Lesions, No rash Neuro: No Weakness, No Headache Yes all other systems are reviewed and are negative Constitutional: Constitutional: Reports as per [facility] Past Medical History Attestation statement: The following information was validated with the patient. Source: old records reviewed Medical History No known health problems Social History Social History Alcohol intake: never Patient Tobacco Use Status: Tobacco use Unknown Substance Use Type: Marijuana Advance Directives: No Advance Directives Information Provided: No Physical Exam Vital Signs: Vital Signs: Last Vital Signs Temp 98 F 09/02/22 07:50 Pulse 94 09/02/22 07:50 Resp 19 09/02/22 07:50 BP 121/78 09/02/22 07:50 Pulse Ox 98 09/02/22 07:50 O2 Del Method Room Air 09/02/22 07:50 BMI result Body Mass Index 26.4 Const: General: cooperative, healthy appearing and no acute distress Orientation/consciousness: patient oriented x3 Limitations: no limitations HEENT: Head: Yes normal to inspection and Yes atraumatic Ears: hearing grossly normal bilaterally General nose exam: Normal external nose present Face and sinus: Yes normal facial exam Eyes: Other: Left upper eyelid with noted internal hordeolum with surrounding swelling and erythema. Tender, no fluctuance or induration. No active drainage General: appearance normal, both eyes and all related structures Conjunctivae: conjunctival abnormal left subconjunctival hemorrhage (small to 3 o'clock position) Corneas: fluorescein used (Without uptake. No ulceration) Pupils: Equal, round and reactive pupils present EOM: EOMs intact bilaterally (Without pain) Direct Ophthalmoscopy: no photophobia Neck: Neck: Yes normal visual inspection and Yes no meningeal signs Resp: Effort & Inspection: normal respiratory effort and no respiratory distress Cardio: Rate: regular rate Skin: Rashes: no rashes Wounds: no wounds Neuro: General: patient oriented x3, tone normal and no meningeal signs Cranial nerves: Yes Equal, round and reactive pupils present Gait exam (Ne uro): Normal gait present Extrem: General: Yes normal to inspection Medications Administered Discontinued Medications Generic Name Dose Route Start Last Admin Trade Name Jesusita PRN Reason Stop Dose Admin Fluorescein Sodium 1 strip 09/02/22 08:13 09/02/22 08:20 Fluorescein Sodium Strip EYE-RIGHT 09/02/22 08:14 1 strip ONCE ONE Administration Tetracaine HCl 1 drop 09/02/22 08:13 09/02/22 08:20 Tetracaine Hcl/Pf 0.5% Oph Sheree 4 Ml Drops EYE-RIGHT 09/02/22 08:14 1 drop ONCE ONE Administration Medical Decision Making Medical Decision Making MDM Narrative: 36-year-old female with no significant past medical history presenting to the ED complaining of left eye swelling, erythema, and discomfort x5 days. On exam vital signs stable, NAD, nontoxic appearing, physical exam as noted above with left internal hordeolum with surrounding erythema/swelling. Tender to palpation. 4 cm stain without appreciable uptake. Low suspicion for preseptal/septal cellulitis Plan: Erythromycin drops, warm compresses//, ophthalmology follow-up as needed Results discussed with patient including worrisome signs and symptoms and strict return precautions, and when to return to the emergency department. They verbalized understanding and feel safe for discharge at this time. Differential Diagnosis Differential Diagnoses: The differential diagnosis associated with the presentation includes As above External Record Review External record reviewed: Inpatient record, Office record, Outpatient record, Prior outpatient labs, Prior outpatient radiology, Primary care record and Outside ED record Tests considered The following testing was considered but not selected: As above Discharge Plan Discharge Clinical Impression: Hordeolum Patient Disposition: Home, Self-Care Instructions: Trey (ED) Additional Instructions: religiously apply warm compresses and massage area Erythromycin eye ointment as a topical antibiotic, use as prescribed Follow-up with ophthalmology as needed If he develops vision change/loss, fever or persistent/worsening symptoms return to the ED Prescriptions: New erythromycin 5 mg/gram (0.5 %) ointment 0.5 inch ophthalmic (eye) QID 7 Days Qty: 3.5 0RF No Action valacyclovir 1 gram tablet 1,000 mg PO Q12H 10 Days Qty: 20 0RF oxycodone 5 mg tablet 5 mg PO Q8H PRN (Reason: pain) Qty: 7 0RF sulfamethoxazole-trimethoprim [Bactrim DS] 800-160 mg tablet 1 tab PO BID Qty: 14 0RF ondansetron 4 mg tablet,disintegrating 4 mg PO TID PRN (Reason: nausea and vomiting) 5 Days Qty: 10 0RF cefuroxime axetil 500 mg tablet 500 mg PO BID 10 Days Qty: 20 0RF lorazepam [Ativan] 1 mg tablet 1 mg PO BID PRN (Reason: anxiety) Qty: 14 0RF acetaminophen [Tylenol Extra Strength] 500 mg tablet 500 mg PO Q6H PRN (Reason: fever or pain) Qty: 14 0RF lidocaine [Lidoderm] 5 % adhesive patch,medicated 1 patch topical DAILY MDD remove after 12 hours PRN (Reason: pain) Qty: 30 0RF Rx Instructions: leave on most painful area for up to 12 hrs naproxen 500 mg tablet 500 mg PO BID PRN (Reason: pain) 10 Days Qty: 20 0RF cyclobenzaprine 5 mg tablet 5 mg PO Q8H PRN (Reason: pain (scale score 7-10)) 5 Days Qty: 14 0RF Referrals: Jermaine Gavin [Physician] - 1 week
[2022-09-02] MEDS: Fluorescein Sodium STRIP 1 STRIP EYE-RIGHT (08:20)
[2022-09-02] MEDS: Tetracaine HCl/PF 0.5% Oph Sol 4 ML DROPS 1 DROP EYE-RIGHT (08:20)
== END 2022-09-02 08:57 | disposition home or self-care (01) ==
PROVIDERS: Emergency Provider Internal Medicine
DX: H00.016 Hordeolum externum left eye, unspecified eyelid (principal); Z79.899 Other long term (current) drug therapy
CPT/HCPCS: 99282; 99283; S9485

== ENCOUNTER 2022-12-03 16:38 | Emergency (ER) | payer MEDICAID, SELFPAY ==
--- NOTE | ~2022-12-03 | CT_ITS ---
EXAMINATION: CT ABDOMEN AND PELVIS WITH CONTRAST CLINICAL INFORMATION: Abdominal pain. COMPARISON: None available. TECHNIQUE: Multidetector volumetric images were obtained from the superior aspect of the liver through the pubic symphysis following administration 85 mL of Omnipaque 350 intravenous contrast. Sagittal and coronal reformatted images were obtained on the technologist's workstation. Oral contrast: No This CT examination was performed using dose optimization techniques as appropriate, variously including the following: *Automated exposure control *Adjustment of mA and/or kV according to patient size (this includes techniques or standardized protocols for targeted exams where dose is matched to indication/reason for exam; i.e. extremities or head) *Use of iterative reconstruction technique DLP: 447 mGy-cm FINDINGS: LUNG BASES: The visualized lung bases are unremarkable. LIVER, GALLBLADDER, AND BILIARY TREE: The liver is normal in size, shape, and attenuation. No focal hepatic lesion or biliary ductal dilatation is present. The gallbladder is unremarkable with no evidence of radiopaque gallstones, gallbladder wall thickening, or obvious pericholecystic inflammatory changes. PANCREAS: Unremarkable. SPLEEN: Unremarkable. ADRENAL GLANDS: Unremarkable. KIDNEYS AND URETERS: The kidneys are normal in size, shape, and attenuation. No hydronephrosis, hydroureter, or calculi seen. No perinephric stranding. BLADDER: Unremarkable. GASTROINTESTINAL TRACT: The small and large bowel are unremarkable. The appendix is unremarkable. ABDOMINAL WALL: No significant hernia is appreciated. LYMPH NODES: Normal. VASCULAR: Unremarkable. PELVIC VISCERA: Unremarkable. OSSEOUS STRUCTURES: Unremarkable. CT/CT abdomen pelvis w IV con IMPRESSION: No significant abnormality. Fleischner guidelines were followed.
--- NOTE | ~2022-12-03 | US_ITS ---
EXAMINATION: US ABDOMEN LIMITED CLINICAL INFORMATION: Quadrant pain. Rule out cholecystitis.. COMPARISON: Prior ultrasound October 2019. CT abdomen and pelvis August 2020 TECHNIQUE: Real-time imaging of the right upper quadrant abdominal viscera. FINDINGS: PANCREAS: Normal. LIVER: Normal. The liver is normal in size. The liver contour is normal. Parenchymal echogenicity is normal. No focal hepatic lesion. There is no intrahepatic biliary duct dilatation seen. GALLBLADDER: Normal. The gallbladder is physiologically distended without evidence of stones, sludge, polyps, wall thickening or pericholecystic fluid. COMMON BILE DUCT: Normal in caliber measuring 0.2 cm in diameter. RIGHT KIDNEY: Normal. No hydronephrosis. No renal calculi or focal parenchymal lesions. The kidney measures 10.5 cm in maximum dimension. FREE FLUID: None. US/US abdomen limited IMPRESSION: Normal exam.
[2022-12-03 18:27] VITALS: BP 128/80; PULSE 82; RESP 18; TEMP 36.8; O2SAT 99; BMI 27.1
--- NOTE | 2022-12-03 18:34 | ED_ITS ---
HPI - Abdominal Pain General Chief Complaint: Abdominal Pain Stated Complaint: Rib pain/Abdominal bloating Time Seen by Provider: 12/03/22 20:22 Source: patient and RN notes reviewed Mode of arrival: ambulatory Limitations: no limitations History of Present Illness HPI narrative: This is a 37-year-old female presenting to the emergency department with complaints of right upper quadrant pain and bloating x5 days. Patient reports that over the last couple of days she has had worsening right upper quadrant pain stabbing in nature. She endorses subjective fevers and chills. She also admits to having nausea and vomiting. States that her pain worsens after eating. Also endorsing diarrhea. Denies history of antibiotics, no history of gallbladder problems. No other complaints or concerns at this time. MD elicited complaint: abdominal pain Pertinent past history: none Onset (ago): day(s) Pain Consistency: colicky Location: none Severity: moderate Quality: cramping and stabbing Radiation: RUQ Migration to: no migration Exacerbating factors: eating, vomiting and movement Associated symptoms: denies other symptoms Related Data Previous Rx's Medication Instructions Recorded oxycodone 5 mg tablet 5 mg PO Q8H PRN pain #7 tabs 05/15/20 valacyclovir 1 gram tablet 1,000 mg PO Q12H 10 days #20 tabs 05/15/20 ondansetron 4 mg disintegrating 4 mg PO TID PRN nausea and 09/03/20 tablet vomiting 5 days #10 tabs sulfamethoxazole 800 1 tab PO BID uti #14 tabs 09/03/20 mg-trimethoprim 160 mg tablet (Bactrim DS) cefuroxime axetil 500 mg tablet 500 mg PO BID 10 days #20 tabs 09/04/20 lorazepam 1 mg tablet (Ativan) 1 mg PO BID PRN anxiety #14 tabs 09/04/20 acetaminophen 500 mg tablet 500 mg PO Q6H PRN fever or pain 10/06/21 (Tylenol Extra Strength) #14 tabs cyclobenzaprine 5 mg tablet 5 mg PO Q8H PRN pain (scale score 10/06/21 7-10) 5 days #14 tabs lidocaine 5 % topical patch 1 patch topical DAILY PRN pain #30 10/06/21 (Lidoderm) ea naproxen 500 mg tablet 500 mg PO BID PRN pain 10 days #20 10/06/21 tabs erythromycin 5 mg/gram (0.5 %) eye 0.5 inch ophthalmic (eye) QID 7 09/02/22 ointment days #3.5 grams aluminum-mag hydroxide-simethicone 5 ml PO 5XD PRN indigestion #355 mL 12/04/22 200 mg-200 mg-20 mg/5 mL oral susp (Maalox Advanced) ondansetron 4 mg disintegrating 4 mg PO Q6H PRN nausea and 12/04/22 tablet vomiting #10 tabs Allergies Allergy/AdvReac Type Severity Reaction Status Date / Time No Known Allergies Allergy Verified 12/03/22 18:26 [No Known Allergies*] Review of Systems Review of Systems Yes all other systems are reviewed and are negative Constitutional: Reports as per [facility] Past Medical History Medical History No known health problems Social History Social History Alcohol intake: current Alcohol intake frequency: a few times a month Patient Tobacco Use Status: Tobacco use Unknown Smoked in Last 30 Days: Yes Use of substances other than those prescribed or required for medical reasons: Yes Substance Use Type: Marijuana Advance Directives: No Advance Directives Information Provided: No Physical Exam ED Vital Signs: Vital Signs - 24 hr 12/03/22 18:27 12/03/22 19:53 12/03/22 21:15 Temperature 98.3 F 98.7 F Pulse Rate 82 82 72 Respiratory Rate 18 16 Blood Pressure 128/80 123/71 129/78 Pulse Oximetry 99 96 99 Oxygen Delivery Method Room Air Room Air Room Air 12/03/22 22:00 12/03/22 23:20 12/04/22 01:59 Temperature 98.2 F 98.2 F 98.5 F Pulse Rate 75 68 66 Respiratory Rate 16 16 16 Blood Pressure 119/73 137/72 114/72 Pulse Oximetry 97 97 95 Oxygen Delivery Method Room Air Room Air Room Air BMI result Body Mass Index 27.1 Const General: cooperative, comfortable and no acute distress Orientation/consciousness: patient oriented x3 Limitations: no limitations HENMT Head: Yes normal to inspection, Yes normocephalic and Yes atraumatic Ears: hearing grossly normal bilaterally General nose exam: Normal external nose present Face and sinus: Yes normal facial exam Mouth: Normal oral and palatal mucosa present, oropharynx normal and moist mucous membranes Throat: Yes posterior oropharynx normal Eyes General: appearance normal, both eyes and all related structures Eyelids: Yes eyelids normal Conjunctivae: conjunctivae normal Sclerae: sclerae normal Pupils: Equal, round and reactive pupils present EOM: EOMs intact bilaterally Neck Neck: Yes normal visual inspection, Yes full ROM and Yes no lymphadenopathy Lymphatic: no lymphadenopathy noted Chest Chest palpation & inspection: normal inspection of the chest Resp Effort & Inspection: normal respiratory effort and able to speak in complete sentences Auscultation: clear to auscultation bilaterally, no crackles, no rales, no rhonchi and no wheezes Cardio Rate: regular rate Rhythm: regular rhythm Heart sounds: S1 normal heart sound present and S2 normal heart sound present GI Other: Abdomen is soft, with exquisite right upper quadrant tenderness with palpation, with guarding. No rebound. Normoactive bowel sounds present in all 4 quadrants. Inspection: Yes normal to inspection Skin General skin exam: no rashes or lesions noted Trauma: no lacerations or abrasions Wounds: no wounds Neuro General: patient oriented x3 and moves all extremities Cranial nerves: Yes Equal, round and reactive pupils present Extrem General: Yes normal to inspection Right upper extremity: normal to inspection Left upper extremity: normal to inspection Right lower extremity: normal to inspection Left lower extremity: normal to inspection Course Course Course Narrative: Patient complains of right upper abdominal pain associated with vomiting and diarrhea, denies other abdominal pain This started 3 days ago Exam there is right upper quadrant tenderness Labs and ultrasound ordered This is rapid medical exam pending full evaluation by provider in the emergency department with full history and physical, review of labs and imaging and dispo pending Reevaluation(s) Reevaluation #1: Workup is essentially unremarkable however given right upper quadrant pain, I discussed case with my attending physician, Dr. Tolliver, and will obtain CT with IV contrast for further evaluation. Time: 00:26 Reevaluation #2: CT abdomen and pelvis without any acute findings. I discussed this with Dr. Tolliver no further workup obtain. Symptoms likely due to gastritis. Patient's symptoms improved with Maalox and lidocaine. Patient stable for discharge. P.o. challenge and patient was able to eat without difficulty. Time: 02:00 Medical Decision Making Medical Decision Making MDM Narrative: 37-year-old female presenting to the emergency department with complaints of right upper quadrant pain x5 days. On arrival, vital signs within normal limits, patient is afebrile and nontoxic appearing. On examination, patient has exquisite right upper quadrant tenderness with palpation. Concerning for cholecystitis versus cholelithiasis. Patient was medicated with morphine and her pain improved. Labs were ordered, no leukocytosis, stable H&H, normal chemistries, urine does not appear to be infected. Abdominal ultrasound was ordered and was unremarkable. Differential Diagnosis Differential Diagnoses: The differential diagnosis associated with the presentation includes Cholecystitis, cholelithiasis, gastritis, gastroenteritis Lab Data [facility] Lab Attestation statement: I reviewed the patient's lab results. See above 12/03/22 19:50 12/03/22 19:50 Labs: Lab Results 12/03/22 12/03/22 Range/Units 19:50 21:22 WBC 9.6 (4.8-10.8) X10*3/uL RBC 4.29 (4.20-5.50) X10*6/uL Hgb 13.2 (12.0-16.0) g/dl Hct 39.1 (37.0-47.0) % MCV 91.1 (80.0-98.0) fL MCH 30.8 (27.0-33.0) pg MCHC 33.8 (31.0-35.0) g/dl RDW 13.4 (11.0-16.0) % Plt Count 280 (160-400) X10*3/uL MPV 9.9 (9.4-12.3) fL Immature Gran % (Auto) 0.2 (0.0-0.4) % Neut % (Auto) 62.3 (45-73) % Lymph % (Auto) 27.6 (20-40) % Orange % (Auto) 8.8 (2-11) % Eos % (Auto) 0.9 (0-4) % Baso % (Auto) 0.2 (0-2) % Lymph # (Auto) 2.6 (1.2-4.9) X10*3/uL Orange # (Auto) 0.8 (0.1-1.2) X10*3/uL Eos # (Auto) 0.1 (0.0-0.4) X10*3/uL Baso # (Auto) 0.0 (0.0-0.2) X10*3/uL Abs Immat Gran (auto) 0.02 (0.00-0.03) X10*3/uL Absolute Neuts (auto) 5.9 (2.0-8.3) x10*3/uL Absolute Nucleated RBC 0.000 (0.0-0.012) X10*3/uL Nucleated RBC % (auto) 0.0 (0.0-0.2) /100WBC Sodium 136 (135-145) mmol/L Potassium 3.8 (3.3-5.1) mmol/L Chloride 105 (96-108) mmol/L Carbon Dioxide 24 (22-29) mmol/L Anion Gap 11 L (12-20) BUN 15 (9-16) mg/dL Creatinine 0.80 (0.5-1.4) mg/dL Estim Creat Clear Calc 81.5 Estimated GFR > 60 Random Glucose 82 (60-115) mg/dL Calcium 9.7 (8.4-10.2) mg/dL Total Bilirubin 0.2 (0.0-1.0) mg/dL Direct Bilirubin < 0.2 (0.0-0.5) mg/dL AST 17 (5-31) U/L ALT 15 (0-31) U/L Alkaline Phosphatase 63 (39-117) U/L Total Protein 7.1 (6.5-8.0) g/dL Albumin 4.4 (3.5-5.0) g/dL Lipase 28 (8-78) U/L Urine Color Yellow Urine Appearance Clear Urine pH 5.5 (5.0-9.0) Ur Specific [place] >= 1.030 H (1.005-1.025) Urine Protein Negative (Neg-Trace) mg/dL Urine Glucose (UA) Negative (Negative) mg/dL Urine Ketones Trace (Negative) mg/dL Urine Blood Trace H (Negative) Urine Nitrite Negative (Negative) Ur Leukocyte Esterase Negative (Negative) Urine RBC 6-10 H (0-2) /HPF Urine WBC 0-5 (0-5) /HPF Ur Squamous Epith Cells 6-10 (0-2) /HPF Urine Bacteria 1+ (None Seen) Hyaline Casts 0-2 (0-2) /LPF Urine Test NEGATIVE (NEGATIVE) Radiology Impression Discussion of test interpretation with radiology: I have reviewed the radiologist's reading. Radiologist Impression: EXAMINATION: US ABDOMEN LIMITED CLINICAL INFORMATION: Quadrant pain. Rule out cholecystitis.. COMPARISON: Prior ultrasound October 2019. CT abdomen and pelvis August 2020 TECHNIQUE: Real-time imaging of the right upper quadrant abdominal viscera. FINDINGS: PANCREAS: Normal. LIVER: Normal. The liver is normal in size. The liver contour is normal. Parenchymal echogenicity is normal. No focal hepatic lesion. There is no intrahepatic biliary duct dilatation seen. GALLBLADDER: Normal. The gallbladder is physiologically distended without evidence of stones, sludge, polyps, wall thickening or pericholecystic fluid. COMMON BILE DUCT: Normal in caliber measuring 0.2 cm in diameter. RIGHT KIDNEY: Normal. No hydronephrosis. No renal calculi or focal parenchymal lesions. The kidney measures 10.5 cm in maximum dimension. FREE FLUID: None. US/US abdomen limited IMPRESSION: Normal exam. Dictated By: Gabriel Terry MD Medications Administered Discontinued Medications Generic Name Dose Route Start Last Admin Trade Name Freq PRN Reason Stop Dose Admin Al Hydroxide/Mg Hydroxide 30 ml 12/04/22 02:06 12/04/22 02:15 Magnesium Hydrox/Alum Hydrox 30 Ml Oral.Susp PO 12/04/22 02:07 30 ml ONCE ONE Administration Iohexol 85 ml 12/04/22 00:40 12/04/22 00:40 Iohexol 350 Mg/Ml 100 Ml Infus..Btl IV 12/04/22 00:41 85 ml ONCE ONE Administration Lidocaine HCl 15 ml 12/04/22 02:06 12/04/22 02:15 Lidocaine Hcl Viscous 2 % 15 Ml Solution MUCOUS MEM 12/04/22 02:07 15 ml ONCE ONE Administration Morphine Sulfate 4 mg 12/03/22 21:14 12/03/22 21:23 Morphine Sulfate 4 Mg/Ml Cartridge IVPUSH 12/03/22 21:15 4 mg ONCE ONE Administration Protocol Morphine Sulfate 4 mg 12/04/22 00:26 12/04/22 00:55 Morphine Sulfate 4 Mg/Ml Cartridge IVPUSH 12/04/22 00:27 4 mg ONCE ONE Administration Protocol Discharge Plan Discharge Clinical Impression: Abdominal pain Qualifiers: Abdominal location: upper abdomen, unspecified Qualified Code(s): R10.10 - Upper abdominal pain, unspecified Patient Disposition: Home, Self-Care Instructions: Gastritis (ED), Acute Abdominal Pain (ED), Abdominal Pain (ED) Additional Instructions: Your ultrasound was normal. Your labs were normal. It is unclear what is causing you to have the symptoms. If these symptoms persist, please call GI specialist. Eat a bland diet, avoid fatty, spicy or greasy food. If any new or worsening symptoms occur, including but not limited to fevers, chills unable to the eat or drink, please return for re-evaluation. Prescriptions: New ondansetron 4 mg tablet,disintegrating 4 mg PO Q6H PRN (Reason: nausea and vomiting) Qty: 10 0RF alum-mag hydroxide-simeth [Maalox Advanced] 200-200-20 mg/5 mL suspension 5 ml PO 5XD PRN (Reason: indigestion) Qty: 355 0RF Rx Instructions: administer between meals and at bedtime No Action valacyclovir 1 gram tablet 1,000 mg PO Q12H 10 Days Qty: 20 0RF oxycodone 5 mg tablet 5 mg PO Q8H PRN (Reason: pain) Qty: 7 0RF sulfamethoxazole-trimethoprim [Bactrim DS] 800-160 mg tablet 1 tab PO BID Qty: 14 0RF ondansetron 4 mg tablet,disintegrating 4 mg PO TID PRN (Reason: nausea and vomiting) 5 Days Qty: 10 0RF cefuroxime axetil 500 mg tablet 500 mg PO BID 10 Days Qty: 20 0RF lorazepam [Ativan] 1 mg tablet 1 mg PO BID PRN (Reason: anxiety) Qty: 14 0RF acetaminophen [Tylenol Extra Strength] 500 mg tablet 500 mg PO Q6H PRN (Reason: fever or pain) Qty: 14 0RF lidocaine [Lidoderm] 5 % adhesive patch,medicated 1 patch topical DAILY MDD remove after 12 hours PRN (Reason: pain) Qty: 30 0RF Rx Instructions: leave on most painful area for up to 12 hrs naproxen 500 mg tablet 500 mg PO BID PRN (Reason: pain) 10 Days Qty: 20 0RF cyclobenzaprine 5 mg tablet 5 mg PO Q8H PRN (Reason: pain (scale score 7-10)) 5 Days Qty: 14 0RF erythromycin 5 mg/gram (0.5 %) ointment 0.5 inch ophthalmic (eye) QID 7 Days Qty: 3.5 0RF Referrals: [facility] [place] Gastroenterology Services [Provider Group] Stand Alone Forms: Work/School Release Interventions: ED Discharge Assessment Last Done: 12/04/22 02:45 Discharge Date/Time: 12/04/22 02:47
[2022-12-03 19:53] VITALS: BP 123/71; PULSE 82; RESP 16; TEMP 37.1; O2SAT 96
--- NOTE | 2022-12-03 19:57 | PC.NURSE ---
Pt c/o RUQ px approximately 5 days, 10/03 bloating achy, with associated nausea and vomiting and diarrhea today. Labs drawn and #20 R-AC
[2022-12-03 19:58] LABS: MANUAL DIFF FLAG NO
[2022-12-03 20:01] LABS: Basophils Percent Auto 0.2 % (0-2); Eosinophils Absolute Auto 0.1 X10*3/uL (0.0-0.4); Eosinophils Percent Auto 0.9 % (0-4); Hematocrit 39.1 % (37.0-47.0); Hemoglobin 13.2 g/dl (12.0-16.0); Imm Gran Abs Auto 0.02 X10*3/uL (0.00-0.03); Imm Gran Pct Auto 0.2 % (0.0-0.4); Lymphocytes Absolute Auto 2.6 X10*3/uL (1.2-4.9); Lymphocytes Percent Auto 27.6 % (20-40); Mean Corpuscular HGB Conc 33.8 g/dl (31.0-35.0); Mean Corpuscular Hemoglobin 30.8 pg (27.0-33.0); Mean Corpuscular Volume 91.1 fL (80.0-98.0); Mean Platelet Volume 9.9 fL (9.4-12.3); Monocytes Absolute Auto 0.8 X10*3/uL (0.1-1.2); Monocytes Percent Auto 8.8 % (2-11); Neutrophils Absolute Auto 5.9 x10*3/uL (2.0-8.3); Neutrophils Percent Auto 62.3 % (45-73); Platelet Count 280 X10*3/uL (160-400); Red Blood Count 4.29 X10*6/uL (4.20-5.50); Red Cell Distribution Width 13.4 % (11.0-16.0); White Blood Count 9.6 X10*3/uL (4.8-10.8)
[2022-12-03 20:22] LABS: Alanine Aminotransferase 15 U/L (0-31); Albumin Level 4.4 g/dL (3.5-5.0); Alkaline Phosphatase 63 U/L (39-117); Anion Gap 11 (12-20); Aspartate Amino Transferase 17 U/L (5-31); Bilirubin Direct < 0.2 mg/dL (0.0-0.5); Bilirubin Total 0.2 mg/dL (0.0-1.0); Blood Urea Nitrogen 15 mg/dL (9-16); Calcium 9.7 mg/dL (8.4-10.2); Carbon Dioxide 24 mmol/L (22-29); Chloride 105 mmol/L (96-108); Creatinine Clr Calc Pharmacy 81.5; Estimated Glomerular Filt Rate > 60; Glucose Random 82 mg/dL (60-115); Lipase 28 U/L (8-78); Potassium 3.8 mmol/L (3.3-5.1); Sodium 136 mmol/L (135-145); Total Protein 7.1 g/dL (6.5-8.0)
[2022-12-03 21:15] VITALS: BP 129/78; PULSE 72; O2SAT 99
[2022-12-03] MEDS: Morphine Sulfate 4 MG/ML CARTRIDGE IVPUSH (21:23)
[2022-12-03 21:37] LABS: UPreg QC Valid YES; Urine Pregnancy NEGATIVE (NEGATIVE)
[2022-12-03 21:41] LABS: Appearance Urine Clear; Color Urine Yellow; Glucose Urine UA Negative (Negative); Leukocyte Esterase Urine Negative (Negative); Nitrite Urine Negative (Negative); PH 5.5 (5.0-9.0); Specific Gravity - Urine >= 1.030 (1.005-1.025); UMIC TRIGGER UACC YES; Urine Blood Trace (Negative); Urine Ketones Trace mg/dL (Negative); Urine Protein Negative (Neg-Trace)
[2022-12-03 21:46] LABS: Bacteria Urine 1+ (None Seen); Hyaline Casts Urine 0-2 /LPF (0-2); WBC Urine 0-5 /HPF (0-5)
[2022-12-03 22:00] VITALS: BP 119/73; PULSE 75; RESP 16; TEMP 36.8; O2SAT 97
[2022-12-03 23:20] VITALS: BP 137/72; PULSE 68; RESP 16; TEMP 36.8; O2SAT 97
[2022-12-04] MEDS: iohexoL 350 MG/ML 100 ML INFUS..BTL 85 ML IV (00:40)
[2022-12-04] MEDS: Morphine Sulfate 4 MG/ML CARTRIDGE IVPUSH (00:55)
[2022-12-04 01:59] VITALS: BP 114/72; PULSE 66; RESP 16; TEMP 36.9; O2SAT 95
[2022-12-04] MEDS: Magnesium Hydrox/Alum Hydrox 30 ML ORAL.SUSP PO (02:15)
[2022-12-04] MEDS: Lidocaine HCl Viscous 2 % 15 ML SOLUTION MUCOUS MEM (02:15)
== END 2022-12-04 02:47 | disposition home or self-care (01) ==
PROVIDERS: Physician Assistant Medical; Emergency Provider Emergency Medicine Emergency Medical Services
DX: R10.11 Right upper quadrant pain (principal); R11.2 Nausea with vomiting, unspecified; F12.90 Cannabis use, unspecified, uncomplicated; Z79.899 Other long term (current) drug therapy
CPT/HCPCS: 36415; 74177; 76705; 80048; 80076; 81001; 81025; 83690; 85025; 96374; 96376; 99284; J2270; Q9967

== ENCOUNTER 2023-02-26 13:25 | Emergency (ER) | payer MEDICAID, SELFPAY ==
[2023-02-26 13:45] VITALS: BP 122/72; PULSE 99; RESP 14; TEMP 36.6; O2SAT 99; BMI 27.1
--- NOTE | 2023-02-26 13:50 | ED_ITS ---
HPI - General Adult General Chief complaint: Psychiatric Symptoms Stated complaint: Anxiety/Depression/Congestion/Chest pain Time Seen by Provider: 02/26/23 18:59 History of Present Illness HPI narrative: Pt is a 37yo female who presents to the ED with 2-3 days of chest congestion and worsening depression. Pt has a hx of anxiety, depression, PTSD, and bipolar 2 disorder but is not currently on medications or in treatment. Pt states she is having trouble reconnecting with her prior provider. She notes feeling overwhelmed by stressors and experiencing triggers of her PTSD about a week ago which spurred the onset of her depressive episode. She notes feeling like she wants to go to sleep and not wake up but denies SI with a plan or intent. She notes feeling like she doesn't want to get out of bed and crying all day. In terms of her chest congestion she notes bilateral ear popping/pressure, chest tightness, vomiting, and sore throat. Denies SOB, CP, or fevers. Related Data Previous Rx's Medication Instructions Recorded oxycodone 5 mg tablet 5 mg PO Q8H PRN pain #7 tabs 05/15/20 valacyclovir 1 gram tablet 1,000 mg PO Q12H 10 days #20 tabs 05/15/20 ondansetron 4 mg disintegrating 4 mg PO TID PRN nausea and 09/03/20 tablet vomiting 5 days #10 tabs sulfamethoxazole 800 1 tab PO BID uti #14 tabs 09/03/20 mg-trimethoprim 160 mg tablet (Bactrim DS) cefuroxime axetil 500 mg tablet 500 mg PO BID 10 days #20 tabs 09/04/20 lorazepam 1 mg tablet (Ativan) 1 mg PO BID PRN anxiety #14 tabs 09/04/20 acetaminophen 500 mg tablet 500 mg PO Q6H PRN fever or pain 10/06/21 (Tylenol Extra Strength) #14 tabs cyclobenzaprine 5 mg tablet 5 mg PO Q8H PRN pain (scale score 10/06/21 7-10) 5 days #14 tabs lidocaine 5 % topical patch 1 patch topical DAILY PRN pain #30 10/06/21 (Lidoderm) ea naproxen 500 mg tablet 500 mg PO BID PRN pain 10 days #20 10/06/21 tabs erythromycin 5 mg/gram (0.5 %) eye 0.5 inch ophthalmic (eye) QID 7 09/02/22 ointment days #3.5 grams aluminum-mag hydroxide-simethicone 5 ml PO 5XD PRN indigestion #355 mL 12/04/22 200 mg-200 mg-20 mg/5 mL oral susp (Maalox Advanced) ondansetron 4 mg disintegrating 4 mg PO Q6H PRN nausea and 12/04/22 tablet vomiting #10 tabs hydroxyzine HCl 25 mg tablet 25 mg PO TID PRN anxiety #20 tabs 02/26/23 Allergies Allergy/AdvReac Type Severity Reaction Status Date / Time No Known Allergies Allergy Verified 02/26/23 13:43 [No Known Allergies*] Review of Systems 2 Constitutional: Constitutional: Denies chills, Denies fever(s) and Reports headache(s) Eyes: Eyes: Denies change in vision ENT: Denies dizziness, Reports otalgia, Reports headache(s), Denies hearing loss, Denies sinus pressure and Reports sore throat Cardiovascular: Cardiovascular: Denies chest pain and Denies dyspnea Respiratory: Respiratory: Reports chest congestion, Denies cough and Denies dyspnea Gastrointestinal: Gastrointestinal: Denies abdominal pain, Denies constipation, Denies diarrhea, Denies nausea and Reports vomiting Neurologic: Denies dizziness and Reports headache(s) Psychiatric: Psychiatric: Reports anxiety, Reports depression, Reports difficulty concentrating, Denies hopelessness, Reports anhedonia and Denies suicidal ideation [facility] Past Medical History Medical History No known health problems Social History Social History Alcohol intake: current Alcohol intake frequency: holidays/special occasions only Patient Tobacco Use Status: Tobacco use Unknown Smoked in Last 30 Days: Yes Use of substances other than those prescribed or required for medical reasons: Yes Substance Use Type: Marijuana Substance Use Frequency: Socially Advance Directives: No Advance Directives Information Provided: No Physical Exam ED Vital Signs: Vital Signs - 24 hr 02/26/23 19:48 Temperature 98.6 F Pulse Rate 89 Respiratory Rate 18 Blood Pressure 118/76 Pulse Oximetry 98 Oxygen Delivery Method Room Air BMI result Body Mass Index 27.1 Const Orientation/consciousness: patient oriented x3 HENMT Head: Yes normal to inspection Ears: hearing grossly normal bilaterally, external ears normal, TM's normal bilaterally and other (mild cerumen impaction b/L) General nose exam: Normal external nose present Mouth: Normal oral and palatal mucosa present Throat: Yes posterior oropharynx abnormal (mild erythema without exudate) Eyes General: appearance normal, both eyes and all related structures Resp Effort & Inspection: normal respiratory effort and able to speak in complete sentences Auscultation: clear to auscultation bilaterally Cardio Rate: regular rate Rhythm: regular rhythm Heart sounds: S1 normal heart sound present and S2 normal heart sound present GI Palpation (GI): Soft to palpation and nontender Neuro General: patient oriented x3 and moves all extremities Psych Appearance: grossly normal Mental Status: mental status grossly normal Speech and movement: Normal speech and movement present Affect: Labile affect present Thought process: Normal thought process present Thought content: suicidality and Depressive thoughts present Insight: Fair insight present (Psych) Judgement: Fair judgement present (Psych) Course Course Course Narrative: RME: 37 yold female presents to the ED for depression for one month and not wanting to work or be with friends. patient states stays in her room. Patietn states no suicidal or homicideal ideation. Seconday complatins is ear pain, sore throat, and cough. no sob. labs, SARS, and care consutl Medical Decision Making Medical Decision Making MDM Narrative: Patient complains of upper respiratory symptoms likely all related to RSV, she is medically cleared at this time. Her vital signs are stable. I discussed with the patient. She also presents for increasing depression, passive suicidal ideation. I discussed her options with her she was more than welcome to stay for care to evaluation. The patient reports that she does not want to talk about her depression in front of her children but has no one to come pick her children up. I discussed with the care team and they will be able to have somebody call the patient tonight to follow up and set up an at home visit for the patient. I discussed this option with the patient and she feels very grateful for this option and is comfortable with discharge at this time. I also gave her the number for the [facility] crisis hotline and encouraged her to return if she has any active suicidal ideation. Patient endorses willingness to return if her symptoms worsen Differential Diagnosis Differential Diagnoses: The differential diagnosis associated with the presentation includes (RSV, COVID, Flu, viral bronchitis, otitis media, acute stress reaction, MDD) Lab Data MDM Lab Attestation statement: I reviewed the patient's lab results. Hematologic and chemistry in disease without any significant abnormalities. No leukocytosis, no significant anemia. No chemistry abnormalities. Normal renal function 02/26/23 15:47 02/26/23 15:47 Labs: Lab Results 02/26/23 Range/Units 15:47 WBC 7.8 (4.8-10.8) X10*3/uL RBC 4.02 L (4.20-5.50) X10*6/uL Hgb 12.5 (12.0-16.0) g/dl Hct 37.8 (37.0-47.0) % MCV 94.0 (80.0-98.0) fL MCH 31.1 (27.0-33.0) pg MCHC 33.1 (31.0-35.0) g/dl RDW 13.8 (11.0-16.0) % Plt Count 253 (160-400) X10*3/uL MPV 10.1 (9.4-12.3) fL Immature Gran % (Auto) 0.3 (0.0-0.4) % Neut % (Auto) 72.2 (45-73) % Lymph % (Auto) 18.9 L (20-40) % [place] % (Auto) 7.5 (2-11) % Eos % (Auto) 1.0 (0-4) % Baso % (Auto) 0.1 (0-2) % Lymph # (Auto) 1.5 (1.2-4.9) X10*3/uL [place] # (Auto) 0.6 (0.1-1.2) X10*3/uL Eos # (Auto) 0.1 (0.0-0.4) X10*3/uL Baso # (Auto) 0.0 (0.0-0.2) X10*3/uL Abs Immat Gran (auto) 0.02 (0.00-0.03) X10*3/uL Absolute Neuts (auto) 5.6 (2.0-8.3) x10*3/uL Absolute Nucleated RBC 0.000 (0.0-0.012) X10*3/uL Nucleated RBC % (auto) 0.0 (0.0-0.2) /100WBC Sodium 141 (135-145) mmol/L Potassium 4.0 (3.3-5.1) mmol/L Chloride 108 (96-108) mmol/L Carbon Dioxide 24 (22-29) mmol/L Anion Gap 13 (12-20) BUN 12 (9-16) mg/dL Creatinine 0.87 (0.5-1.4) mg/dL Estim Creat Clear Calc 74.9 Estimated GFR > 60 Random Glucose 70 (60-115) mg/dL Calcium 8.8 D (8.4-10.2) mg/dL Total Bilirubin 0.3 (0.0-1.0) mg/dL AST 20 (5-31) U/L ALT 21 (0-31) U/L Alkaline Phosphatase 70 (39-117) U/L Total Protein 6.6 (6.5-8.0) g/dL Albumin 4.0 (3.5-5.0) g/dL Beta HCG, Quant < 2 mIU/mL Urine Color Yellow Urine Appearance Hazy Urine pH 6.0 (5.0-9.0) Ur Specific Ray >= 1.030 H (1.005-1.025) Urine Protein Negative (Neg-Trace) mg/dL Urine Glucose (UA) Negative (Negative) mg/dL Urine Ketones Negative (Negative) mg/dL Urine Blood Trace (Negative) Urine Nitrite Negative (Negative) Ur Leukocyte Esterase Negative (Negative) Urine RBC 0-2 (0-2) /HPF Urine WBC 0-5 (0-5) /HPF Ur Squamous Epith Cells 0-2 (0-2) /HPF Urine Bacteria None Seen (None Seen) Hyaline Casts 0-2 (0-2) /LPF Urine Test NEGATIVE (NEGATIVE) Urine Opiates Screen Not Detected (Not Detect) Urine Fentanyl Screen Not Detected (Not Detect) Ur Barbiturates Screen Not Detected (Not Detect) Ur Phencyclidine Scrn Not Detected (Not Detect) Ur Amphetamines Screen Not Detected (Not Detect) U Benzodiazepines Scrn Not Detected (Not Detect) Urine Cocaine Screen Not Detected (Not Detect) U Marijuana (THC) Screen POSITIVE H (Not Detect) Ethyl Alcohol < 10 mg/dL Influenza Type A (PCR) NEGATIVE (Negative) Influenza Type B (PCR) NEGATIVE (Negative) RSV RNA Qual (PCR) POSITIVE A (Negative) SARS-CoV-2 RNA (RT-PCR) NEGATIVE (Negative) S. pyogenes GrpA CLARY Negative (Negative) Discharge Plan Discharge Clinical Impression: RSV infection Patient Disposition: Home, Self-Care Instructions: Respiratory Syncytial Virus (ED) Additional Instructions: You tested positive for a virus call the RSV This is likely contributing to your congestion, earache, cough. I also recommend that you fiber picker Debrox drops from the pharmacy to help clear out the ear wax You should receive a phone call from the care team later giovanna to help schedule an at home visit for a care team evaluation from [facility]. Return to the ER immediately if you are having any thoughts of harming herself or anybody else Prescriptions: New hydroxyzine HCl 25 mg tablet 25 mg PO TID PRN (Reason: anxiety) Qty: 20 0RF No Action valacyclovir 1 gram tablet 1,000 mg PO Q12H 10 Days Qty: 20 0RF oxycodone 5 mg tablet 5 mg PO Q8H PRN (Reason: pain) Qty: 7 0RF sulfamethoxazole-trimethoprim [Bactrim DS] 800-160 mg tablet 1 tab PO BID Qty: 14 0RF ondansetron 4 mg tablet,disintegrating 4 mg PO TID PRN (Reason: nausea and vomiting) 5 Days Qty: 10 0RF cefuroxime axetil 500 mg tablet 500 mg PO BID 10 Days Qty: 20 0RF lorazepam [Ativan] 1 mg tablet 1 mg PO BID PRN (Reason: anxiety) Qty: 14 0RF acetaminophen [Tylenol Extra Strength] 500 mg tablet 500 mg PO Q6H PRN (Reason: fever or pain) Qty: 14 0RF lidocaine [Lidoderm] 5 % adhesive patch,medicated 1 patch topical DAILY MDD remove after 12 hours PRN (Reason: pain) Qty: 30 0RF Rx Instructions: leave on most painful area for up to 12 hrs naproxen 500 mg tablet 500 mg PO BID PRN (Reason: pain) 10 Days Qty: 20 0RF cyclobenzaprine 5 mg tablet 5 mg PO Q8H PRN (Reason: pain (scale score 7-10)) 5 Days Qty: 14 0RF erythromycin 5 mg/gram (0.5 %) ointment 0.5 inch ophthalmic (eye) QID 7 Days Qty: 3.5 0RF ondansetron 4 mg tablet,disintegrating 4 mg PO Q6H PRN (Reason: nausea and vomiting) Qty: 10 0RF alum-mag hydroxide-simeth [Maalox Advanced] 200-200-20 mg/5 mL suspension 5 ml PO 5XD PRN (Reason: indigestion) Qty: 355 0RF Rx Instructions: administer between meals and at bedtime Interventions: [place]-Suicide Risk Severity Scale Last Done: 02/26/23 19:48 ED Discharge Assessment Last Done: 02/26/23 20:02 Discharge Date/Time: 02/26/23 20:04
[2023-02-26 15:53] LABS: MANUAL DIFF FLAG NO
[2023-02-26 16:01] LABS: Basophils Percent Auto 0.1 % (0-2); Eosinophils Absolute Auto 0.1 X10*3/uL (0.0-0.4); Hematocrit 37.8 % (37.0-47.0); Hemoglobin 12.5 g/dl (12.0-16.0); Imm Gran Abs Auto 0.02 X10*3/uL (0.00-0.03); Imm Gran Pct Auto 0.3 % (0.0-0.4); Lymphocytes Absolute Auto 1.5 X10*3/uL (1.2-4.9); Lymphocytes Percent Auto 18.9 % (20-40); Mean Corpuscular HGB Conc 33.1 g/dl (31.0-35.0); Mean Corpuscular Hemoglobin 31.1 pg (27.0-33.0); Mean Platelet Volume 10.1 fL (9.4-12.3); Monocytes Absolute Auto 0.6 X10*3/uL (0.1-1.2); Monocytes Percent Auto 7.5 % (2-11); Neutrophils Absolute Auto 5.6 x10*3/uL (2.0-8.3); Neutrophils Percent Auto 72.2 % (45-73); Platelet Count 253 X10*3/uL (160-400); Red Blood Count 4.02 X10*6/uL (4.20-5.50); Red Cell Distribution Width 13.8 % (11.0-16.0); White Blood Count 7.8 X10*3/uL (4.8-10.8)
[2023-02-26 16:04] LABS: Amphetamine Screen Urine Not Detected (Not Detect); Appearance Urine Hazy; Barbiturates, Urine Not Detected (Not Detect); Benzodiazepines Screen Urine Not Detected (Not Detect); Cannabinoid Screen Urine POSITIVE (Not Detect); Cocaine Screen Urine Not Detected (Not Detect); Color Urine Yellow; Fentanyl, urine Not Detected (Not Detect); Glucose Urine UA Negative (Negative); IDNOW Serial# 08D9AD1C; Leukocyte Esterase Urine Negative (Negative); Nitrite Urine Negative (Negative); Opiate Screen Urine Not Detected (Not Detect); Phencyclidine Screen Urine Not Detected (Not Detect); Specific Gravity - Urine >= 1.030 (1.005-1.025); Strep A Nucleic Acid Negative (Negative); UMIC TRIGGER UACC YES; Urine Blood Trace (Negative); Urine Ketones Negative (Negative); Urine Protein Negative (Neg-Trace)
[2023-02-26 16:05] LABS: UPreg QC Valid YES; Urine Pregnancy NEGATIVE (NEGATIVE)
[2023-02-26 16:11] LABS: Alanine Aminotransferase 21 U/L (0-31); Alkaline Phosphatase 70 U/L (39-117); Anion Gap 13 (12-20); Aspartate Amino Transferase 20 U/L (5-31); Bacteria Urine None Seen (None Seen); Bilirubin Total 0.3 mg/dL (0.0-1.0); Blood Urea Nitrogen 12 mg/dL (9-16); Calcium 8.8 mg/dL (8.4-10.2); Carbon Dioxide 24 mmol/L (22-29); Chloride 108 mmol/L (96-108); Creatinine Clr Calc Pharmacy 74.9; Estimated Glomerular Filt Rate > 60; Glucose Random 70 mg/dL (60-115); Hyaline Casts Urine 0-2 /LPF (0-2); RBC Urine 0-2 /HPF (0-2); Sodium 141 mmol/L (135-145); Squamous Epithelial Cell Urine 0-2 /HPF (0-2); Total Protein 6.6 g/dL (6.5-8.0); WBC Urine 0-5 /HPF (0-5)
[2023-02-26 16:15] LABS: Ethanol < 10 mg/dL
[2023-02-26 16:19] LABS: HCG Quantitative < 2 mIU/mL
[2023-02-26 16:35] LABS: Influenza A PCR NEGATIVE (Negative); Influenza B PCR NEGATIVE (Negative); Resp Syncy Virus RNA Qual PCR POSITIVE (Negative); SARS COV2 PCR INHOUSE NEGATIVE (Negative)
[2023-02-26 19:48] VITALS: BP 118/76; PULSE 89; RESP 18; TEMP 37; O2SAT 98
== END 2023-02-26 20:04 | disposition home or self-care (01) ==
PROVIDERS: Physician Assistant; Emergency Provider Internal Medicine
DX: J22 Unspecified acute lower respiratory infection (principal); R09.89 Other specified symptoms and signs involving the circulatory and respiratory systems; Z20.822 Contact with and (suspected) exposure to COVID-19; Z20.828 Contact with and (suspected) exposure to other viral communicable diseases; F32.A Depression, unspecified
CPT/HCPCS: 0241U; 36415; 80053; 80307; 81001; 81003; 81025; 84702; 85025; 87651; 99284

== ENCOUNTER 2023-06-06 09:34 | Emergency (ER) | payer MEDICAID, SELFPAY ==
--- NOTE | ~2023-06-06 | XR_ITS ---
EXAMINATION: XR SHOULDER, RIGHT CLINICAL INFORMATION: Right shoulder pain. COMPARISON: None available. TECHNIQUE: AP, Grashey, and scapular Y views of the right shoulder. FINDINGS: The bones and soft tissues are normal. No fracture. Glenohumeral and acromioclavicular alignment is anatomic with normal joint space. No abnormal soft tissue calcifications. XR/XR shoulder RT min 2V IMPRESSION: Unremarkable examination.
--- NOTE | 2023-06-06 09:42 | ECG_ITS ---
Test Reason : CP/BODYACHES Blood Pressure : / mmHG Vent. Rate : 076 BPM Atrial Rate : 076 BPM P-R Int : 142 ms QRS Dur : 068 ms QT Int : 366 ms P-R-T Axes : -08 073 027 degrees QTc Int : 411 ms Normal sinus rhythm Septal infarct , age undetermined Abnormal ECG When compared with ECG of 14-JUL-2022 17:20, No significant change was found Referred By: Generic ED Physician Electronically Signed By:MARICEL DIAS MD
[2023-06-06 10:07] VITALS: BP 109/77; PULSE 85; RESP 14; TEMP 36.4; O2SAT 99; BMI 28.0
[2023-06-06 12:15] VITALS: BP 127/67; PULSE 78; RESP 18; O2SAT 98
--- NOTE | 2023-06-06 12:48 | ED_ITS ---
HPI - Extremity Problem General Chief complaint: Extremity Injury, Upper Stated complaint: Chest pain, SOB Time Seen by Provider: 06/06/23 12:02 Source: patient Mode of arrival: ambulatory Limitations: no limitations History of Present Illness HPI Narrative: 37-year-old female presents to the emergency department with complaints of right-sided shoulder pain with radiation into chest. Patient reports substernal chest pressure and at times stabbing pain, intermittently goes to the right, near her clavicle. Also reports associated shortness of breath that is worse with deep breathing. She is also noted that when she has been driving her right arm feels heavy. She has been doing heavy lifting at work however she is unsure if this is contributing. Patient denies fevers, chills, cough, nausea, vomiting, abdominal pain, headache, vision changes, dizziness and weakness Related Data Previous Rx's Medication Instructions Recorded oxycodone 5 mg tablet 5 mg PO Q8H PRN pain #7 tabs 05/15/20 valacyclovir 1 gram tablet 1,000 mg PO Q12H 10 days #20 tabs 05/15/20 ondansetron 4 mg disintegrating 4 mg PO TID PRN nausea and 09/03/20 tablet vomiting 5 days #10 tabs sulfamethoxazole 800 1 tab PO BID uti #14 tabs 09/03/20 mg-trimethoprim 160 mg tablet (Bactrim DS) cefuroxime axetil 500 mg tablet 500 mg PO BID 10 days #20 tabs 09/04/20 lorazepam 1 mg tablet (Ativan) 1 mg PO BID PRN anxiety #14 tabs 09/04/20 acetaminophen 500 mg tablet 500 mg PO Q6H PRN fever or pain 10/06/21 (Tylenol Extra Strength) #14 tabs cyclobenzaprine 5 mg tablet 5 mg PO Q8H PRN pain (scale score 10/06/21 7-10) 5 days #14 tabs lidocaine 5 % topical patch 1 patch topical DAILY PRN pain #30 10/06/21 (Lidoderm) ea naproxen 500 mg tablet 500 mg PO BID PRN pain 10 days #20 10/06/21 tabs erythromycin 5 mg/gram (0.5 %) eye 0.5 inch ophthalmic (eye) QID 7 09/02/22 ointment days #3.5 grams aluminum-mag hydroxide-simethicone 5 ml PO 5XD PRN indigestion #355 mL 12/04/22 200 mg-200 mg-20 mg/5 mL oral susp (Maalox Advanced) ondansetron 4 mg disintegrating 4 mg PO Q6H PRN nausea and 12/04/22 tablet vomiting #10 tabs hydroxyzine HCl 25 mg tablet 25 mg PO TID PRN anxiety #20 tabs 02/26/23 ketorolac 10 mg tablet 10 mg PO TID PRN pain 5 days #15 06/06/23 tabs lidocaine 5 % topical patch 1 patch topical DAILY PRN pain #15 06/06/23 ea Allergies Allergy/AdvReac Type Severity Reaction Status Date / Time No Known Allergies Allergy Verified 02/26/23 13:43 [No Known Allergies*] Review of Systems 2 Review of Systems: Yes all other systems are reviewed and are negative [facility] Past Medical History Attestation statement: The following information was validated with the patient. Source: old records reviewed and nursing notes reviewed Medical History No known health problems Social History Social History Alcohol intake: current Alcohol intake frequency: holidays/special occasions only Patient Tobacco Use Status: Tobacco use Unknown Substance Use Type: Marijuana Advance Directives: No Advance Directives Information Provided: No Physical Exam 2 Vital Signs: Vital Signs: Last Vital Signs Temp 97.5 F 06/06/23 10:07 Pulse 78 06/06/23 12:15 Resp 18 06/06/23 12:15 BP 127/67 06/06/23 12:15 Pulse Ox 98 06/06/23 12:15 O2 Del Method Room Air 06/06/23 12:15 BMI result Body Mass Index 28.0 vss Appearance: Alert.? Oriented X3.? No acute distress.? Head: Normocephalic, atraumatic, no step-offs or deformities Eyes: Pupils equal, round and reactive to light.? Neck: Normal inspection.? Neck supple.? CVS: Normal heart rate and rhythm.? Pulses normal.?+ TTP to right anterior chest wall Respiratory: No respiratory distress.? Breath sounds normal.? Abdomen: Soft and nontender.? Skin: Skin warm and dry.? Normal skin color.? Normal skin turgor.? Extremities: No lower extremity edema.? No calf ttp. 5/5 strength to bilateral upper and lower extremities Neuro: Oriented X 3.? No motor deficit.? No sensory deficit. CN 2-12 intact Course Reevaluation(s) Reevaluation #1: CBC unremarkable. Chemistry no acute findings requiring intervention. Negative troponin. D-dimer negative. Right shoulder x-ray unremarkable. Patient given Toradol tolerated it well. At this time likely musculoskeletal in nature unlikely ACS. Educated patient on diagnosis and treatment plan, answered all question, patient verbalizes understanding. At this time patient will be discharged home, advised to return with new or worsening symptoms. Educated on worrisome signs and symptoms and when to return. At this time I feel comfortable discharge home. Time: 13:52 Medical Decision Making Medical Decision Making [facility] Narrative: 37-year-old female presents with right shoulder pain with radiation into chest for the past 3 days. Physical exam with anterior chest wall pain on palpation. History and physical exam concerning for costochondritis. Unlikely ACS, PE, dissection, acute respiratory distress. Unlikely pneumothorax. Unlikely fracture dislocation no associated trauma. No signs of neurovascular compromise or threat to limb. Plan at this time labs, imaging. Differential Diagnosis Differential Diagnoses: The differential diagnosis associated with the presentation includes History and physical exam concerning for costochondritis. Unlikely ACS, PE, dissection, acute respiratory distress. Unlikely pneumothorax. Unlikely fracture dislocation no associated trauma. No signs of neurovascular compromise or threat to limb. Admission/Observation Consideration of admission/observation: Escalation of care including admission/observation considered Lab Data [facility] Lab Attestation statement: I reviewed the patient's lab results. 06/06/23 13:12 06/06/23 13:12 Labs: Lab Results 06/06/23 Range/Units 13:12 WBC 7.6 (4.8-10.8) X10*3/uL RBC 4.21 (4.20-5.50) X10*6/uL Hgb 13.2 (12.0-16.0) g/dl Hct 39.0 (37.0-47.0) % MCV 92.6 (80.0-98.0) fL MCH 31.4 (27.0-33.0) pg MCHC 33.8 (31.0-35.0) g/dl RDW 13.6 (11.0-16.0) % Plt Count 269 (160-400) X10*3/uL MPV 9.3 L (9.4-12.3) fL Immature Gran % (Auto) 0.3 (0.0-0.4) % Neut % (Auto) 64.6 (45-73) % Lymph % (Auto) 28.2 (20-40) % [place] % (Auto) 6.3 (2-11) % Eos % (Auto) 0.5 (0-4) % Baso % (Auto) 0.1 (0-2) % Lymph # (Auto) 2.1 (1.2-4.9) X10*3/uL [place] # (Auto) 0.5 (0.1-1.2) X10*3/uL Eos # (Auto) 0.0 (0.0-0.4) X10*3/uL Baso # (Auto) 0.0 (0.0-0.2) X10*3/uL Abs Immat Gran (auto) 0.02 (0.00-0.03) X10*3/uL Absolute Neuts (auto) 4.9 (2.0-8.3) x10*3/uL Absolute Nucleated RBC 0.000 (0.0-0.012) X10*3/uL Nucleated RBC % (auto) 0.0 (0.0-0.2) /100WBC D-Dimer High Sensitivty < 150 NG/ML Sodium 137 (135-145) mmol/L Potassium 4.0 (3.3-5.1) mmol/L Chloride 106 (96-108) mmol/L Carbon Dioxide 26 (22-29) mmol/L Anion Gap 9 L (12-20) BUN 10 (9-16) mg/dL Creatinine 0.64 (0.5-1.4) mg/dL Estim Creat Clear Calc 103.4 Estimated GFR > 60 Random Glucose 77 (60-115) mg/dL Calcium 8.9 (8.4-10.2) mg/dL Total Bilirubin 0.5 (0.0-1.0) mg/dL AST 17 (5-31) U/L ALT 16 (0-31) U/L Alkaline Phosphatase 53 (39-117) U/L Troponin I High Sens < 2.7 (<3.5-17.0) ng/L Total Protein 7.0 (6.5-8.0) g/dL Albumin 4.4 (3.5-5.0) g/dL Independent Interpretation I performed an independent interpretation of an: Plain X-Ray ( XR/XR shoulder RT min 2V IMPRESSION: Unremarkable examination.) Radiology Impression Discussion of test interpretation with radiology: I have reviewed the radiologist's reading. External Record Review External record reviewed: Inpatient record, Office record, Outpatient record, Prior outpatient labs, Prior outpatient radiology, Primary care record and Outside ED record Prescription Management I considered prescription management with: Pain Medication (toradol, lidoderm ) Critical Care Time Critical Care Time Critical Care Time: No Discharge Plan Discharge Clinical Impression: Costochondritis, Chest pain not due to acute coronary syndrome Patient Disposition: Home, Self-Care Instructions: Costochondritis (ED) Additional Instructions: Take your medications as prescribed. If you were prescribed antibiotics today, it is important that you take your medication to their entirety, do not skip any doses, do not finish them early. Follow-up with your primary care provider this week. Return to the emergency department with new or worsening symptoms. Such as fevers, chills, chest pain, shortness of breath, nausea, vomiting, dizziness, headache, vision changes, lethargy In case of emergency call 911 Your laboratory studies and EKG were reassuring. Please take medication as prescribed. Toradol has been sent to your pharmacy, you tolerated this well in the department. Please take this as prescribed do not take this with ibuprofen, or other NSAIDs, do not mix this with alcohol. Side effects of this medication including increased risk for bleeding and possible kidney injury XR/XR shoulder RT min 2V IMPRESSION: Unremarkable examination. Prescriptions: New ketorolac 10 mg tablet 10 mg PO TID PRN (Reason: pain) 5 Days Qty: 15 0RF lidocaine 5 % adhesive patch,medicated 1 patch topical DAILY PRN (Reason: pain) Qty: 15 0RF Rx Instructions: leave on most painful area for up to 12 hrs No Action valacyclovir 1 gram tablet 1,000 mg PO Q12H 10 Days Qty: 20 0RF oxycodone 5 mg tablet 5 mg PO Q8H PRN (Reason: pain) Qty: 7 0RF sulfamethoxazole-trimethoprim [Bactrim DS] 800-160 mg tablet 1 tab PO BID Qty: 14 0RF ondansetron 4 mg tablet,disintegrating 4 mg PO TID PRN (Reason: nausea and vomiting) 5 Days Qty: 10 0RF cefuroxime axetil 500 mg tablet 500 mg PO BID 10 Days Qty: 20 0RF lorazepam [Ativan] 1 mg tablet 1 mg PO BID PRN (Reason: anxiety) Qty: 14 0RF acetaminophen [Tylenol Extra Strength] 500 mg tablet 500 mg PO Q6H PRN (Reason: fever or pain) Qty: 14 0RF lidocaine [Lidoderm] 5 % adhesive patch,medicated 1 patch topical DAILY MDD remove after 12 hours PRN (Reason: pain) Qty: 30 0RF Rx Instructions: leave on most painful area for up to 12 hrs naproxen 500 mg tablet 500 mg PO BID PRN (Reason: pain) 10 Days Qty: 20 0RF cyclobenzaprine 5 mg tablet 5 mg PO Q8H PRN (Reason: pain (scale score 7-10)) 5 Days Qty: 14 0RF erythromycin 5 mg/gram (0.5 %) ointment 0.5 inch ophthalmic (eye) QID 7 Days Qty: 3.5 0RF ondansetron 4 mg tablet,disintegrating 4 mg PO Q6H PRN (Reason: nausea and vomiting) Qty: 10 0RF alum-mag hydroxide-simeth [Maalox Advanced] 200-200-20 mg/5 mL suspension 5 ml PO 5XD PRN (Reason: indigestion) Qty: 355 0RF Rx Instructions: administer between meals and at bedtime hydroxyzine HCl 25 mg tablet 25 mg PO TID PRN (Reason: anxiety) Qty: 20 0RF Referrals: Physician,Unknown J [Primary Care Provider] - 3 days Stand Alone Forms: Work/School Release
[2023-06-06 13:16] LABS: MANUAL DIFF FLAG NO
[2023-06-06 13:18] LABS: Basophils Percent Auto 0.1 % (0-2); Eosinophils Percent Auto 0.5 % (0-4); Hemoglobin 13.2 g/dl (12.0-16.0); Imm Gran Abs Auto 0.02 X10*3/uL (0.00-0.03); Imm Gran Pct Auto 0.3 % (0.0-0.4); Lymphocytes Absolute Auto 2.1 X10*3/uL (1.2-4.9); Lymphocytes Percent Auto 28.2 % (20-40); Mean Corpuscular HGB Conc 33.8 g/dl (31.0-35.0); Mean Corpuscular Hemoglobin 31.4 pg (27.0-33.0); Mean Corpuscular Volume 92.6 fL (80.0-98.0); Mean Platelet Volume 9.3 fL (9.4-12.3); Monocytes Absolute Auto 0.5 X10*3/uL (0.1-1.2); Monocytes Percent Auto 6.3 % (2-11); Neutrophils Absolute Auto 4.9 x10*3/uL (2.0-8.3); Neutrophils Percent Auto 64.6 % (45-73); Platelet Count 269 X10*3/uL (160-400); Red Blood Count 4.21 X10*6/uL (4.20-5.50); Red Cell Distribution Width 13.6 % (11.0-16.0); White Blood Count 7.6 X10*3/uL (4.8-10.8)
[2023-06-06 13:33] LABS: D Dimer High Sensitivity < 150 NG/ML
[2023-06-06 13:34] LABS: Alanine Aminotransferase 16 U/L (0-31); Albumin Level 4.4 g/dL (3.5-5.0); Alkaline Phosphatase 53 U/L (39-117); Anion Gap 9 (12-20); Aspartate Amino Transferase 17 U/L (5-31); Bilirubin Total 0.5 mg/dL (0.0-1.0); Blood Urea Nitrogen 10 mg/dL (9-16); Calcium 8.9 mg/dL (8.4-10.2); Carbon Dioxide 26 mmol/L (22-29); Chloride 106 mmol/L (96-108); Creatinine Clr Calc Pharmacy 103.4; Estimated Glomerular Filt Rate > 60; Glucose Random 77 mg/dL (60-115); Sodium 137 mmol/L (135-145)
[2023-06-06 13:42] LABS: Troponin-I High Sensitivity < 2.7 ng/L (<3.5-17.0)
[2023-06-06] MEDS: Ketorolac Tromethamine 30 MG/ML VIAL IM (13:47)
[2023-06-06 13:57] LABS: Influenza A PCR NEGATIVE (Negative); Influenza B PCR NEGATIVE (Negative); Resp Syncy Virus RNA Qual PCR NEGATIVE (Negative); SARS COV2 PCR INHOUSE NEGATIVE (Negative)
== END 2023-06-06 13:59 | disposition home or self-care (01) ==
PROVIDERS: Physician Assistant; Emergency Provider Emergency Medicine Emergency Medical Services
DX: M94.0 Chondrocostal junction syndrome [Tietze] (principal); R07.89 Other chest pain; R06.02 Shortness of breath; M25.511 Pain in right shoulder; Z11.52 Encounter for screening for COVID-19; Z20.822 Contact with and (suspected) exposure to COVID-19; Z79.899 Other long term (current) drug therapy
CPT/HCPCS: 0241U; 36415; 73030; 80053; 84484; 85025; 85379; 93005; 96372; 99284; J1885

== ENCOUNTER → 2023-06-06 09:42 | Outpatient (BNV) | payer MEDICAID, SELFPAY | PROVIDERS: Visit Provider Internal Medicine Cardiovascular Disease | DX: R07.9 Chest pain, unspecified (principal) | CPT/HCPCS: 93010 ==

== ENCOUNTER 2023-10-10 11:20 | Emergency (ER) | payer MEDICAID, SELFPAY ==
--- NOTE | ~2023-10-10 | XR_ITS ---
EXAMINATION: XR KNEE, LEFT CLINICAL INFORMATION: Pain after jumping COMPARISON: None available. TECHNIQUE: Four views of the left knee. FINDINGS: No joint effusion, fracture, dislocation or destructive process. XR/XR knee LT 4V IMPRESSION: Negative
[2023-10-10 11:34] VITALS: BP 126/72; PULSE 75; RESP 16; TEMP 36.1; O2SAT 99; BMI 28.7
--- NOTE | 2023-10-10 11:38 | ED.LOWEXIN ---
HPI - Extremity Injury (Lower) General Chief Complaint: Extremity Injury, Lower Stated Complaint: knee pain Time Seen by Provider: 10/10/23 12:18 Source: patient Mode of arrival: ambulatory Limitations: no limitations History of Present Illness ED Provider: Mauricio Weeks PA-C HPI Narrative: 37 yo female presents to the ER for evaluation of left knee pain x4 days after she injured it while playing frisbee. She states she jumped up and when she landed she felt a pop/crack. She has had pain since. She initially had swelling which improved with nsaids, ice and elevation. she developed a small bruise to the outside of the knee yesterday with ongoing pain w/ ambulation and flexion. no other injuries. no weakness, numbness or tingling. MD complaint: knee injury Onset (ago): day(s) (4) Injury: Left: knee Place: street/outdoors Severity: moderate Severity scale (1-10): 5 Relieving factors: NSAID, cold therapy, immobilization and rest Exacerbating factors: weight bearing and movement Context: jumping Associated symptoms: snap/pop sensation and ambulatory Other symptoms: none Related Data Previous Rx's ?Medication ?Instructions ?Recorded oxycodone 5 mg tablet 5 mg PO Q8H PRN pain #7 tabs 05/15/20 valacyclovir 1 gram tablet 1,000 mg PO Q12H 10 days #20 tabs 05/15/20 ondansetron 4 mg disintegrating 4 mg PO TID PRN nausea and 09/03/20 tablet vomiting 5 days #10 tabs sulfamethoxazole 800 1 tab PO BID uti #14 tabs 09/03/20 mg-trimethoprim 160 mg tablet (Bactrim DS) cefuroxime axetil 500 mg tablet 500 mg PO BID 10 days #20 tabs 09/04/20 lorazepam 1 mg tablet (Ativan) 1 mg PO BID PRN anxiety #14 tabs 09/04/20 acetaminophen 500 mg tablet 500 mg PO Q6H PRN fever or pain 10/06/21 (Tylenol Extra Strength) #14 tabs cyclobenzaprine 5 mg tablet 5 mg PO Q8H PRN pain (scale score 10/06/21 7-10) 5 days #14 tabs lidocaine 5 % topical patch 1 patch topical DAILY PRN pain #30 10/06/21 (Lidoderm) ea naproxen 500 mg tablet 500 mg PO BID PRN pain 10 days #20 10/06/21 tabs erythromycin 5 mg/gram (0.5 %) eye 0.5 inch ophthalmic (eye) QID 7 09/02/22 ointment days #3.5 grams aluminum-mag hydroxide-simethicone 5 ml PO 5XD PRN indigestion #355 mL 12/04/22 200 mg-200 mg-20 mg/5 mL oral susp (Maalox Advanced) ondansetron 4 mg disintegrating 4 mg PO Q6H PRN nausea and 12/04/22 tablet vomiting #10 tabs hydroxyzine HCl 25 mg tablet 25 mg PO TID PRN anxiety #20 tabs 02/26/23 ketorolac 10 mg tablet 10 mg PO TID PRN pain 5 days #15 06/06/23 tabs lidocaine 5 % topical patch 1 patch topical DAILY PRN pain #15 06/06/23 ea naproxen 500 mg tablet (Naprosyn) 500 mg PO BID PRN pain #20 tabs 10/10/23 Allergies Allergy/AdvReac Type Severity Reaction Status Date / Time No Known Allergies Allergy Verified 10/10/23 11:38 [No Known Allergies*] Review of Systems Review of Systems: Yes all other systems are reviewed and are negative PMFSH Past Medical History Medical History No known health problems Social History Social History Alcohol intake: current Alcohol intake frequency: holidays/special occasions only Patient Tobacco Use Status: Tobacco use Unknown Substance Use Type: Marijuana Advance Directives: No Advance Directives Information Provided: Yes Do you have a plan to hurt others: No Plan Physical Exam Vital Signs: Vital Signs: Last Vital Signs Temp 97.0 F 10/10/23 11:34 Pulse 75 10/10/23 11:34 Resp 16 10/10/23 11:34 BP 126/72 10/10/23 11:34 Pulse Ox 99 10/10/23 11:34 O2 Del Method Room Air 10/10/23 11:34 BMI result Body Mass Index 28.7 Appearance: Alert. Oriented X3. No acute distress. HEENT: normal inspection CVS: Normal heart rate and rhythm. Pulses normal. Respiratory: No respiratory distress. Skin: Skin warm and dry. Normal skin color. Normal skin turgor. No rashes. Extremities: left knee with a small 1-2cm ecchymotic area on the lateral aspect of the knee, mild tenderness associated. no swelling of the knee. pain w/ passive flexion past 90 degrees. negative anterior drawer test. Neuro: Oriented X 3. No motor deficit. No sensory deficit. slight limp Course Course Course Narrative: This is a Rapid Medical Examination (RME) performed by Mauricio Weeks PA-C in triage. Full HPI, ROS, assessment and treatment plan per primary provider in the Main ED. 37 yo female presents to the ER for evaluation of left knee pain after she jumped while playing frisbee 2 days ago. She heard a pop when she landed, has had pain, swelling and some bruising since. Ambulatory with a slight limp. Plan: XR knee Medical Decision Making Medical Decision Making MDM Narrative: 37 yo female presenting with left knee pain after she heard a crack/pop while jumping 4 days ago. no swelling on exam, no effusion, no appreciated joint laxity. ambulatory. XR is normal. placed in YEYO wrap for compression and support. we discussed ongoing RICE and referral to orthopedics for further evaluation. patient agrees w/ plan. stable for d/c Differential Diagnosis Differential Diagnoses: The differential diagnosis associated with the presentation includes knee sprain, knee strain, torn ligament, knee effusion, arthritis, tibial plateau fracture Independent Interpretation I performed an independent interpretation of an: Plain X-Ray Interpretation: no effusion or fx apprecaited Radiology Impression Discussion of test interpretation with radiology: I have reviewed the radiologist's reading. Radiologist Impression: EXAMINATION: XR KNEE, LEFT CLINICAL INFORMATION: Pain after jumping COMPARISON: None available. TECHNIQUE: Four views of the left knee. FINDINGS: No joint effusion, fracture, dislocation or destructive process. XR/XR knee LT 4V IMPRESSION: Negative External Record Review External record reviewed: Outpatient record, Prior outpatient labs and Prior outpatient radiology Prescription Management I considered prescription management with: Pain Medication Critical Care Time Critical Care Time Critical Care Time: No Discharge Plan Discharge Clinical Impression: Acute knee pain Patient Disposition: Home, Self-Care Instructions: Knee Pain (ED) Additional Instructions: Your x-ray today was normal. Rest your knee and elevate your leg when possible. Recommend YEYO wrap for support and compression. Use ice several times per day for the next 48 hours. Take the prescribed naproxen and/or Tylenol as needed for pain. Recommend following up with Orthopedics for further evaluation - call for an appointment Follow up with your doctor as needed. Prescriptions: New naproxen [Naprosyn] 500 mg tablet 500 mg PO BID PRN (Reason: pain) Qty: 20 0RF No Action valacyclovir 1 gram tablet 1,000 mg PO Q12H 10 Days Qty: 20 0RF oxycodone 5 mg tablet 5 mg PO Q8H PRN (Reason: pain) Qty: 7 0RF sulfamethoxazole-trimethoprim [Bactrim DS] 800-160 mg tablet 1 tab PO BID Qty: 14 0RF ondansetron 4 mg tablet,disintegrating 4 mg PO TID PRN (Reason: nausea and vomiting) 5 Days Qty: 10 0RF cefuroxime axetil 500 mg tablet 500 mg PO BID 10 Days Qty: 20 0RF lorazepam [Ativan] 1 mg tablet 1 mg PO BID PRN (Reason: anxiety) Qty: 14 0RF acetaminophen [Tylenol Extra Strength] 500 mg tablet 500 mg PO Q6H PRN (Reason: fever or pain) Qty: 14 0RF lidocaine [Lidoderm] 5 % adhesive patch,medicated 1 patch topical DAILY MDD remove after 12 hours PRN (Reason: pain) Qty: 30 0RF Rx Instructions: leave on most painful area for up to 12 hrs naproxen 500 mg tablet 500 mg PO BID PRN (Reason: pain) 10 Days Qty: 20 0RF cyclobenzaprine 5 mg tablet 5 mg PO Q8H PRN (Reason: pain (scale score 7-10)) 5 Days Qty: 14 0RF erythromycin 5 mg/gram (0.5 %) ointment 0.5 inch ophthalmic (eye) QID 7 Days Qty: 3.5 0RF ondansetron 4 mg tablet,disintegrating 4 mg PO Q6H PRN (Reason: nausea and vomiting) Qty: 10 0RF alum-mag hydroxide-simeth [Maalox Advanced] 200-200-20 mg/5 mL suspension 5 ml PO 5XD PRN (Reason: indigestion) Qty: 355 0RF Rx Instructions: administer between meals and at bedtime hydroxyzine HCl 25 mg tablet 25 mg PO TID PRN (Reason: anxiety) Qty: 20 0RF ketorolac 10 mg tablet 10 mg PO TID PRN (Reason: pain) 5 Days Qty: 15 0RF lidocaine 5 % adhesive patch,medicated 1 patch topical DAILY PRN (Reason: pain) Qty: 15 0RF Rx Instructions: leave on most painful area for up to 12 hrs Referrals: [facility] [place] [facility] [Provider Group] Interventions: ED Discharge Assessment Last Done: 10/10/23 13:54 Print Language: Albanian
--- OUTSIDE RECORDS SUMMARY | 2023-10-10 12:31 | XMS_ITS | Continuity of Care Document ---
Author Organization [facility] Address [address] [place] [address] [address] [place] [address]- Care Team Providers Care Ash Worker Name Role Phone Jasper Machado MD Primary Care Physician Encounter [facility] [place] Date(s): 09/07/23 - 10/07/23 [facility] [address] [place] [address]- Allergies, Adverse Reactions, Alerts No Known Medication Allergies Medications Diflucan 150 mg oral tablet See Instructions, 1 tablet By Mouth now, repeat dose in 72 hours, # 2 tablet, 0 Refills, Soft Stop,07/07/20 9:40:00 EDT, [facility]/pharmacy #[id number], Partial fill upon patient request if [...] last 30 days entered on: 04/19/19 Sex Patient Care team information Care Team Personnel Name: Jasper Machado MD Position: S Physician - Pediatrics Member Role: PCP Address: Address: [address] [place] [address]- Care Team Related Persons Name: MIGUEL AARSLANBELA Address: home [address] [id number]
--- OUTSIDE RECORDS SUMMARY | 2023-10-10 12:31 | XMS_ITS | Continuity of Care Document ---
Author Organization [facility] Address [address] [place] [address]- Care Team Providers Care Ice Maker Name Role Phone Jasper Machado MD [id number] Date(s): 06/22/23 - 07/22/[address] [address]- Attending Physician: Jaison Phelps Admitting Physician: AdmJaison jeong Referring Physician: AdmtrJaison Allergies, Adverse Reactions, Alerts No Known Medication Allergies Medications Diflucan 150 mg oral tablet See Instructions, 1 tablet By Mouth now, repeat dose in 72 hours, # 2 tablet, 0 Refills, Soft Stop,07/07/20 9:40:00 EDT, [facility]/pharmacy #[id number], Partial fill upon patient request if [...] Team Personnel Name: Jasper Machado MD Position: [facility] Physician - Pediatrics Member Role: PCP Address: Address: [address] [place] [address]- Care Team Related Persons Name: BELA GRADY Address: [address] [address]
--- OUTSIDE RECORDS SUMMARY | 2023-10-10 12:31 | XMS_ITS | Continuity of Care Document ---
Author Organization [facility] Address [address] [place] [address]- Care Team Providers Care Ball Machine Operator Name Role Phone Jasper Machado MD Primary Care Physician Encounter [facility] [id number] Date(s): 06/12/23 - 07/22/[address] [address] Attending Physician: Not on Staff, Attending MD Allergies, Adverse Reactions, Alerts No Known Medication Allergies Medications Diflucan 150 mg oral tablet See Instructions, 1 tablet By Mouth now, repeat dose in 72 hours, # 2 tablet, 0 Refills, Soft Stop,07/07/20 9:40:00 EDT, [facility]/pharmacy #[id number], Partial fill upon patient request if [...] - Pediatrics Member Role: PCP Address: Address: [address] [place] [address]- [place] Care Team Related Persons Name: BELA GRADY Address: home [address] [place] [address]
[2023-10-10 13:54] VITALS: BP 126/72; PULSE 75; RESP 16; TEMP 36.1; O2SAT 99
== END 2023-10-10 13:56 | disposition home or self-care (01) ==
PROVIDERS: Emergency Provider Emergency Medicine Emergency Medical Services
DX: M25.562 Pain in left knee (principal)
CPT/HCPCS: 73564; 99282; 99283

== ENCOUNTER 2023-11-01 11:19 | Outpatient (AMB) | payer MEDICAID, SELFPAY ==
[2023-11-01 11:24] VITALS: BMI 28.5
--- NOTE | 2023-11-01 11:24 | MHC.OFFVIS ---
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 Patient reports that she was playing frisbee when she came back down from jumping up she felt discomfort. She presented to [facility] [place] a few days later due to her pain, xrays were taken and referred to orthopedics. She has had improvement in her pain however she continues to have discomfort/pain at the medial aspect of knee. Denies numbness or tingling. Allergies No Known Allergies [No Known Allergies*] Allergy (Verified 11/01/23 11:36) Medication List - Last Reconciled 11/01/23 by Annika Calderon PA-C acetaminophen (Tylenol Extra Strength) 500 mg PO Q6H PRN albuterol sulfate 90 mcg/actuation (Ventolin HFA) 1 puff inhalation Q6H PRN alum-mag hydroxide-simeth 200-200-20 mg/5 mL (Maalox Advanced) 5 mL PO 5XD PRN bupropion HCl XL 150 mg PO QAM buspirone 5 mg PO BID cefuroxime axetil 500 mg PO BID 10 days clonazepam 2 mg PO BEDTIME clonidine HCl 0.1 mg PO BID PRN cyclobenzaprine 5 mg PO Q8H PRN 5 days erythromycin 0.5 inches ophthalmic (eye) QID 7 days escitalopram oxalate (Lexapro) 5 mg PO DAILY hydroxyzine HCl 25 mg PO TID PRN ketorolac 10 mg PO TID PRN 5 days lidocaine 5% (Lidoderm) 1 patch topical DAILY PRN MDD remove after 12 hours lidocaine 5% 1 patch topical DAILY PRN lorazepam (Ativan) 1 mg PO BID PRN naproxen 500 mg PO BID PRN 10 days naproxen (Naprosyn) 500 mg PO BID PRN ondansetron 4 mg PO TID PRN 5 days ondansetron 4 mg PO Q6H PRN oxycodone 5 mg PO Q8H PRN sulfamethoxazole-trimethoprim 800-160 mg (Bactrim DS) 1 tab PO BID trazodone 100 mg PO BEDTIME valacyclovir 1,000 mg PO Q12H 10 days HPI HPI 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 She reports she was playing frisbee when she jumped and experienced pain after coming back down. She was seen at ER a few days later due to the pain where x-rays were performed and she was referred to our office. She currently states she has no pain in her knee. She denies any numbness or tingling. [facility] Medical History (Updated 11/01/23 @ 13:21 by Annika Calderon PA-C) No known health problems Surgical History (Updated 11/01/23 @ 11:41 by JOSEFA Nguyen) Hx of hand surgery Social History Alcohol intake: current Alcohol intake frequency: holidays/special occasions only Patient Tobacco Use Status: Tobacco use Unknown Substance Use Type: Marijuana Review of Systems Const All systems reviewed & are unremarkable except as noted in HPI and below Physical Exam Vital Signs: BMI result Body Mass Index 28.5 Const General: cooperative, healthy appearing, comfortable, no acute distress, well developed and alert Orientation/consciousness: patient oriented x3 HEENT Head: Yes normal to inspection, Yes normocephalic and Yes atraumatic Eyes General: appearance normal, both eyes and all related structures Resp Effort & Inspection: normal respiratory effort and able to speak in complete sentences Cardio Rate: regular rate Peripheral pulses: Peripheral pulses 2+ throughout GI Palpation (GI): Soft to palpation Skin Lesions: no lesions Rashes: no rashes Neuro General: patient oriented x3 Extrem Other: Left knee: Normal exam. No tenderness to palpation, no ligamentous laxity. NVI. Results Reviewed Results Reviewed: xrays of the left knee obtained on10/10/23 are negative for acute or chronic abnormalities. Assessment & Plan Assessment & Plan (1) Patellofemoral disorders, left knee: Code(s): M22.2X2 - Patellofemoral disorders, left knee Category: Medical Plan In the absence of pain, discomfort or limitations in activities she will increase activities as tolerated and see me back if symptoms arise. Patient Instructions: Scribed for Annika Calderon PA-C, by Augustin Edwards, certified ophthalmic medical technician, on 11/01/2023 at 11:15 AM EST.? I, Annika Calderon PA-C, have personally reviewed and agree with the information entered by the scribe. Coding Level of Care Code New Pt Level 3 (05318) Diagnoses Patellofemoral disorders, left knee M22.2X2
== END 2023-11-01 13:21 | disposition home or self-care (01) ==
PROVIDERS: Visit Provider Physician Assistant
DX: M22.2X2 Patellofemoral disorders, left knee (principal)
CPT/HCPCS: 99203

== ENCOUNTER → 2023-11-01 11:19 | Outpatient (BNVA) | payer MEDICAID, SELFPAY | PROVIDERS: Visit Provider Physician Assistant | DX: M22.2X2 Patellofemoral disorders, left knee (principal) | CPT/HCPCS: 99212 ==

== ENCOUNTER 2024-01-29 15:11 | Emergency (ER) | payer MEDICAID, SELFPAY ==
--- OUTSIDE RECORDS SUMMARY | 2024-01-29 16:39 | XMS_ITS | Continuity of Care Document ---
Author Organization [facility] Address [address] [place] [address] [address] [place] [address]- Care Team Providers Care Reel Blade Bender Furnace Tender Name Role Phone Jasper Machado MD Primary Care Physician [place] [facility] [place] Date(s): 11/07/23 - 12/07/23 [facility] [address] [place] [address]- Attending Physician: Jaison Phelps Admitting Physician: AdmJaison jeong Referring Physician: AdmtrJaison Allergies, Adverse Reactions, Alerts No Known Medication Allergies Medications Diflucan 150 mg oral tablet See Instructions, 1 tablet By Mouth now, repeat dose in 72 hours, # 2 tablet, 0 Refills, Soft Stop,07/07/20 9:40:00 EDT, [facility]/pharmacy #[id number], Partial fill upon patient request [...] - Pediatrics Member Role: PCP Address: Address: [address] [place] [address]- [place] Care Team Related Persons Name: MIGUEL A BELA Address: [address] [place] [address] Name: ATIF BOGGS Address: [address] [place] [address]
--- OUTSIDE RECORDS SUMMARY | 2024-01-29 16:39 | XMS_ITS | Continuity of Care Document ---
Author Organization [facility] Address [address] [place] [address] [address] [place] [address]- Care Team Providers Care Steel Chipper Name Role Phone Jasper Machado MD Primary Care Physician [place] [facility] [place] 10[place]19[place]23 - 12/07/23 [facility] [address] [address] [place] Attending Physician: Chioma Ledesma Allergies, Adverse Reactions, Alerts No Known Medication Allergies Medications Diflucan 150 mg oral tablet See Instructions, 1 tablet By Mouth now, repeat dose in 72 hours, # 2 tablet, 0 Refills, Soft Stop,07/07/20 9:40:00 EDT, [facility]/pharmacy #[id number], Partial fill upon patient request [...] - Pediatrics Member Role: PCP Address: Address: [address] [place] [id number] Care Team Related Persons Name: BELA GRADY Address: [address] [place] [address] Name: ATIF BOGGS Address: [address] [place] [address]
--- OUTSIDE RECORDS SUMMARY | 2024-01-29 16:39 | XMS_ITS ---
Author Organization [facility] Address [address] [place] [id number] Care Team Providers Care Junior Linux Systems Administrator Name Role Phone MIGUEL A JONES Unavailable [phone] REASON FOR VISIT Nexplanon Out Social History Sex Assigned At : Social History Observation Description Sex Assigned At Female Encounters Encounter Location Date Provider Diagnosis [facility] [address] [place] [id number] MIGUEL A JONES Plan Of Treatment No Information Progress Notes * Karol PERAZADOB :1985 (38 yo F)Acc No.[id number]:11/15/2023 Progress Note Patient:?Stone PERAZA Provider:TAM JONES :1985???Age:37 Y???Sex:Female D ate:11/15/2023 Address:[address] [place], [place] [address] ALIA JACKSON [id number] Subjective: * Chief Complaints: * ???1. Nexplanon Out. * Medical History:? Objective: * Vitals:? Assessment: Plan: * Treatment: * Billing Information: * Visit Code:? * Procedure Codes:? * Electronic signature of NIRU JONES CNM on 01/29/2024 at 04:39 PM EST Sign off status: Pending * Provider:TAM JONES Date:?11/15/2023 Generated for Nancy paredes/Caron/eTransmitting on:?01/29/2024 04:39 PM EST
--- OUTSIDE RECORDS SUMMARY | 2024-01-29 16:39 | XMS_ITS | Continuity of Care Document ---
Author Organization [facility] ter Address [address] [place] [id number]- Care Team Providers Care Lehr Operator Name Role Phone J[place] Machado MD Primary Care Phys[place] [facility] [place] - 10/26/[address] [id number] Discharge Disposition: A-D/C Home Attending Physician: Gaurav Vargas MD Admitting Physician: Gaurav Vargas MD Referring Physician: Gaurav Vargas MD Allergies, Adverse Reactions, Alerts No Known [...] 04/19/19 1... Start Date: 06/06/19 Status: Ordered Vital Signs Most recent to oldest [Reference Range]: 1 2 Weight 70.4 kg (10/26/23 11:31 AM) Oxygen Saturation [94-100 %] 100 % (10/26/23 12:15 PM) 100 % (10/26/23 11:31 AM) Pulse Rate [55-90 bpm] 61 bpm (10/26/23 11:31 AM) Blood Pressure [90-138/55-84 mm Hg] 128/ 80mm Hg (10/26/23 12:15 PM) 110/74mm Hg (10/26/23 11:31 AM) Respiratory Rate [16-30 br/min] 20 br/mi n (10/26/23 12:15 PM) 18 br/min (10/26/23 11:31 AM) Temperature [96.8-100.4 DegF] 98.4 DegF (10/26/23 12:15 PM) 97.2 DegF (10/26/23 11:31 AM) Mode of Delivery (Oxygen) Room air (10/26/23 12:15 PM) Room air (10/26/23 11:31 AM) Blood pressure sites Leg, right (10/26/23 12:15 PM) Arm, left (10/26/23 11:31 AM) Temperature Route Temporal (10/26/23 12:15 PM) Temporal (10/26/23 11:31 AM) Dry Weight 70.4 kg (10/26/23 11:31 AM) Weight Obtained Via Standing scale (10/26/23 11:31 AM) Dry Weight Obtained Via Standing scale (10/26/23 11:31 AM) Social History Social History Type Response Smoking Status 10 or more cigarette s (1/2 pack or more)/day in last 30 days entered on: 04/19/19 Sex Note * Tania Gallo RN: PERFORM Event Display: Discharge/Transfer Note Hospital Authored Date: [id number] Nursing Discharge Note Entered On: 10/26/2023 13:09 EDT Performed On: 10/26/2023 13:08 EDT by Tania Gallo RN Nursing Discharge Note 2 Discharge Time : 10/26/2023 13:07 EDT Discharge Level of Care at Discharge : Home/Half-Way/Foster Care Patient Left Unit Via : Ambulatory Patient Accompanied Off Unit with : Other: self DC Instructions Provided & Signed by Pt : Yes Patient Understands D/C Instructions : Yes Patient Instructions Discharge Signed : Yes Did Pt have Specialty Bed or Wound Vac : No Tania Gallo RN - 10/26/2023 13:08 EDT * Tania Gallo RN: PERFORM Event Display: Patient Education/Instruction Authored Date: [id number] Surgery Adult Discharge Instructions [address] [address] Name: SHIRLEY ROBERTS : 1985?? Visit: 10/26/2023 10:50?? Current Date: 10/26/2023 12:47 ?? Account: [id number]?? Surgery Discharge Instructions We would like to thank you for allowing us to assist you with your healthcare needs. The following includes patient education materials and information regarding your injury/illness. Our entire staffstrives to provide an excellent experience for our patients and their families. PLEASE ENSURE YOU FOLLOW-UP PER THE INSTRUCTIONS BELOW! ?? YOUR OPINION IS IMPORTANT TO US! Please complete the survey you may receive by mail or email. Your feedback will be used to make improvements to the healthcare experiences of our patients and their families. Surveys are administered by [employer] ?? If further treatment with your primary care physician or another doctor is recommended, it is important for you to keep the appointment. Call your primary care physician or return to the Emergency Department immediately if your condition worsens, fails to improve, or new symptoms develop. If you need to find a doctor, you can call [facility] [employer] Link for a referral at [phone] or toll free at [phone] ([phone]) or log in to [email or web address].. ?? [facility], in keeping with [facility] guidance, no longer requires face masks for staff, patientsor visitors in most situations. Similiar to time spent indoors at other locations, there is the chance that you were exposed to repiratory viruses during your time with us (such as flu or COVID-19). If you develop symptoms concerning for a viral respiratory infection, please seek testing (and treatment if indicated) from your medical provider or home test kit. ?? You can view and manage your care through the patient portal or by using a health care tyshawn of your choosing. [employer] is a website that allows you to securely view your medical information including your hospital discharge summary, office visit summaries, medications and follow-up visits. You can also request appointments, renew medications, and request access to your medical information using a health care tyshawn of your choosing, or just ask a question. You are entitled to know the individuals who participated in your treatment. This information is available within your medical record and will be provided upon your request. You can enroll at [email or web address] or register d uring your next office visit. You have been discharged from [facility], Patient Care Unit: [facility]??. If you have any questions regarding these instructions after you leave, please call us and we will be happy to assist you. [facility] Your Care Team Attending Physician Alicia VILLEDA, Gaurav Thomas?? Discharging Providers Marely Rojo Reason for Admission RIGHT RING FINGER MASS EXCISION CS DS Primary Care Provider Jeannette VILLEDA, [place] Ontiveros? Advance Directive Health Care Proxy on File No What to do next Instructions From Your Doctor Hand Surgery Instructions Soft Tissue ?? You may take Ibuprofen or Acetaminophen as directed on the bottle for pain. ?? Apply ice pack on top of the dressing overlying the incision 20 minutes on and 40 minutes off repeatedly for the first day ?? Keep dressing in place for the first 3 days postop and cover with plastic bag when showering ?? May remove the entire dressing 72 hrs after surgery and get wet in the shower or to wash your handsin the sink.? Once the dressing is removed, leave the stitches open to air. Do NOT apply ointment or a Band-aide. ?? Please move your shoulder and elbow to prevent stiffness. Open and close your fingers. This will help with swelling and stiffness. Your goal should be a full fist by the time you are seen in the office. ?? Gentle use of the hand is allowed using pain as a guideline; if what you are doing causes pain/discomfort then stop that activity. ?? Orders?? Unit Discharge Criteria Met, ??10/26/23 12:37:00 EDT?? Instructions from your Care Team FOLLOW POSTOP INSTRUCTIONS Scheduled Follow-Up Appointments Monday 2:40 PM EDT ?? With: Chioma Ledesma Where: [facility] Plastic Surgery [address] [place] [address]- Status: Pending You Need to Schedule the Following Appointments Follow Up with??Gaurav Vargas When:??Within 1 to 2 weeks Where: [address], [address] [facility] [place] [address]- Business (1) Follow Up with??J[place] Machado When:??In 0 days Where: [address] [place] [address]- Business (1) Discharge Medications SHIRLEY PERAZA :1985 Visit Date:10/26/2023 Medications: Please continue your medications until treatment is completed or stopped by your provider. You may resume your daily prescription medications. Discuss any questions related to medications with your provider. What How Much When Why Instructions Next Dose Unchanged Fluconazole (Diflucan 150 mg oral tablet) See instructions Vaginitis 1 tablet By Mouth now, repeat dose in 72 hours ?? Unchanged Trazodone (traZODone 100 mg oral tablet) See instructions TAKE 1 TABLET AT BEDTIME NEEDED INSOMNIA ?? Allergies (NKA means No Known Allergies) No Known Medication Allergies Education Materials Below is the list of Educational Leaflet Providered with your Discharge Instructions. [employer] Patient Education - Surgery Medical Daystay Surgical Overnight Discharge Instructions?? Valuables and Belongings I fully understand and agree that [facility] accepts no responsibility for all my personal property including clothing, toilet articles, radios, jewelry, dentures, hearing aids, rings, money, or any other property that is in my possession or is brought to me after admission. I understand certain valuables may be placed in a hospital safe for a short period of time. I understand that the hospital is not liable for loss or damage due to accident, fire, or other natural occurrence while said property is in the safe. I accept full responsibility for any personal property that I keep with me, and will not hold the hospital responsible in case of loss or disappearance. I acknowledge that i have been encouraged to send valuables and belongings home. ?? Review of Valuable and Belonging List: With patient Disposition of Belongings: Other: under stretcher Date for Pt to Sign Valuables/Belongings: 10/26/23 11:32:00 ?? Valuables & Belongings ?? Clothes Electronic devices Jewelry Monetary Items Personal devices Miscellaneous Medications (Valuables) Valuables at Bedside Pants, Shirt, Shoes, Undergarments Cell phone Necklace ? Valuables Sent Home ? Valuables Sent to Security ? Valuables Sent to Locker ? Other Discharge Information ? Pulmonary Rehab Status?? Pulmonary Rehab Discharge Status?? Respiratory Rate: 20 br/min ? Common Emergency Awareness Tips IS IT A STROKE? Act FAST and Check for these signs: FACE Does the face look uneven? ARM Does one arm drift down? SPEECH Does their speech sound strange? TIME Call at any sign of stroke ?? Heart Attack Signs Chest discomfort: Most heart attacks involve discomfort in the center of the chest and lasts more than a few minutes, or goes away and comes back. It can feel like uncomfortable pressure, squeezing, fullness or pain. Discomfort in upper body: Symptoms can include pain or discomfort in one or both arms, back, neck, jaw or stomach. Shortness of breath: With or without discomfort. Other signs: Breaking out in a cold sweat, nausea, or lightheaded. Remember, MINUTES DO MATTER. If you experience any of these heart attack warning signs, call to get immediate medical attention! ?? Smoking can increase your chances of developing chronic health problems and can cause harmful effects to other family members in your house. If you smoke, you are strongly encouraged to quit. Please call [facility] [employer] [facility] at [phone] or [phone] ([phone]) or log in to [email or web address] for referrals to smoking cessation programs. ?? The National Suicide Prevention Hotline is available 17/10 if you or someone you know needs to find a reason to keep living. By calling 9-318-861-[employer] (8105) you'll be connected to a skilled, trained counselor at a crisis center in your area. SURGERY DISCHARGE INSTRUCTIONS SIGNATURE PAGE SHIRLEY PERAZA Location:[facility] Registration Date and Time:10/26/2023 10:50 EDT Primary Care Physician: [place] Machado MD, Attending Physician: Gaurav Vargas MD, SHIRLEY BLEDSOE, have received the above patient education materials/instructions and have verbalized understanding. If ambulance or transport services are being used I further acknowledge being given a choice of service. ?? If you need to contact me, please call me at this number: . Patient/Test Director Name: Patient/Test Director Signature: Relationship to Patient: Witness Name/Signature: Date: * Tania Gallo RN: PERFORM, SIGN, VERIFY Event Display: Patient Education Handout Authored Date: * Tania Gallo RN: PERFORM Event Display: Patient Education Leaflets Authored Date: Surgery Medical Daystay Surgical Overnight Discharge Instructions ?? 295 Medical Daystay/Surgical Overnight Discharge Instructions ? Since your coordination and judgment may be altered by medication and/or anesthesia, a responsible adult must drive you home from the hospital. ? If you have received medication for pain or sedation while under our care, you should not drive, operate machinery, drink alcohol, or sign any legal documents for 24 hours.?? You should have someone with you at home tonight. ? Remain at home the day of discharge.?? You may be up and about unless otherwise instructed by your physician. ? You may resume your daily prescription medication schedule.?? Any depressant medication should be avoided for 24 hours unless otherwise instructed by your surgeon or anesthesiologist. ? Call your physician for a follow-up appointment.? If you experience unusual or severe pain not relied by your pain medication, excessive bleedingor drainage, persistent nausea and vomiting, excessive swelling or redness, foul odor from incisionsite or fever over 100.6F, you need to call your physician. ? A follow-up phone call by a nurse will be made the day after your procedure.?? If you have stayed with us over night, you will not be receiving a follow-up phone call. ? Nausea and vomiting are a common side effect of prescription pain medication.?? We recommend that pills are not taken on an empty stomach.?? While taking any prescription pain medication you should not drive or drink alcohol. ? Patient Care team information Care Team Personnel Name: [place] Machado MD Position: [facility] Physician - Pediatrics Member Role: PCP Address: Address: [address] [place] [address]- Care Team Related Persons Name: BELA GRADY Address: home [address] [place] [address] Name: ATIF BOGGS Address: home [address] [place] [address]
--- OUTSIDE RECORDS SUMMARY | 2024-01-29 16:39 | XMS_ITS | Continuity of Care Document ---
Author Organization [facility] deanna Address [address] [place] [address] [address] [place] [address]- Care Team Providers Care Medical Advisor Name Role Phone Jeannette VILLEDA, [place] Ontiveros Primary Care Physician Encounter [facility] [place] Date(s): 10/18/23 - 10/25/23 [facility] [address] [place] [id number]- Attending Physician: Jewel Ruiz MD Referring Physician: Javon RUEDA, Bushra Allergies, Adverse Reactions, Alerts No Known Medication Allergies Medications Diflucan 150 mg oral tablet See Instructions, 1 tablet By Mouth now, repeat dose in 72 hours, # 2 tablet, 0 Refills, Soft Stop,07/07/20 9:40:00 EDT, [facility]/pharmacy #[id number], Partial fill upon patient request [...] Most recent to oldest [Reference Range]: 1 Height 155 cm (10/18/23 9:12 AM) Weight 63 kg (10/18/23 9:12 AM) Body Mass Index [18.5-24.99 kg/m2] 26.22 kg/m2 *H* (10/18/23 9:12 AM) Social History Social History Type Response Smoking Status 10 or more cigarette s (1/2 pack or more)/day in last 30 days entered on: 04/19/19 Sex Patient Care team information Care Team Personnel Name: J[place] Machado MD Position: [facility] Physician - Pediatrics Member Role: PCP Address: Address: [address] [place] [id number]- Care Team Related Persons Name: BELA GRADY Address: home [address] [place] [id number] Name: ATIF BOGGS Address: home [address] [place] [address]
--- OUTSIDE RECORDS SUMMARY | 2024-01-29 16:40 | XMS_ITS | Patient Health Record ---
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 Date 09/26/2024 Urinalysis Reviewed date:10/26/2023 12:34:39 PM Interpretation:Abnormal Performing Lab: Notes/Report: Abnormal Leukocytes 15 Nitrates - Uro 0.2 Protein - pH 5.5 Blood - Spec [place] 1.030 Ketones 5 Bilirubin - Glucose - APTIMA COMBO 2 CT/NG, Throat /Pharyngeal Reviewed date:11/03/2023 09:53:52 AM Interpretation:Negative Performing Lab:[facility], [address], [place], [address] Farhad Mendes DO Notes/Report: GONORRHEA, AMPLIFIED NEGATIVE NEGATIVE CHLAMYDIA, AMPLIFIED NEGATIVE NEGATIVE DNA Test Results SEX: F : 1985 AGE: 37 [id number] CLINIC ID: [id number] SS: PHYSICIAN: MIGUEL A JONES CNM COLLECTED BY: [id number] Specimen Source: Throat/Pharyngeal Specimen Type: Swab, Key PCR Medium Neisseria gonorrhoeae: NEGATIVE Normal Value: Negative Chlamydia trachomatis: NEGATIVE Normal Value: Negative hCG,Beta Subunit, Qnt-[id number] Reviewed date:11/06/2023 12:49:27 PM Interpretation:Negative Performing Lab:[address], Phone - [phone], Director - [facility] Notes/Report: Clinical Information:X/R:[id number] hCG,Beta Subunit,Qnt,Serum <1 Female (Non-) 0 - 5 (Postmenopausal) 0 - 8 . Female () Weeks of Gestation 3 6 - 71 4 10 - 750 5 570 - 6065 6 668 - 93298 7 1926 -726517 8 51313 -292441 9 49086 -615613 10 31535 -098744 12 17356 -278284 14 49912 - 74669 15 43999 - 53520 16 0522 - 01034 17 2853 - 31299 18 4846 - 19778 Kayla ECLIA methodology HBsAg Screen-[id number] Reviewed date:11/06/2023 12:49:18 PM Interpretation:Negative Performing Lab:[address], Phone - [phone], Director - [facility] Notes/Report: Clinical Information:X/R:[id number] HBsAg Screen Negative Negative Hepatitis B Surf Ab Quant-00 6530 Reviewed date:11/06/2023 12:49:01 PM Interpretation:Immune Performing Lab:[address], Phone - [phone], Director - [facility] Notes/Report: Clinical Information:X/R:[id number] Hepatitis B Surf Ab Quant 6454.0 Immunity>10 mIU/mL Results confirmed on dilution. Status of Immunity Anti-HBs Level Inconsistent with Immunity 0.0 - 10.0 Consistent with Immunity >10.0 Urine Culture, Routine-32394 7 Reviewed date:11/03/2023 12:02:10 PM Interpretation:No growth Performing Lab:[facility] [place], [address] [facility] [place], Phone - [phone], Director - [place] Notes/Report: Clinical Information:X/R:[id number] Clinical Information:X/R:[id number] Urine Culture, Routine Final report Result 1 No growth Chlamydia/GC Amplification-1 14161 Reviewed date:11/01/2023 09:18:30 AM Interpretation:Negative Performing Lab:[facility] [place], [address] [facility] [place], [place], Phone - [phone], Director - [place] Notes/Report: Chlamydia trachomatis, ALEXA Negative Negative Neisseria gonorrhoeae, ALEXA Negative Negative Trich vag by ALEXA-162242 Reviewed date:11/06/2023 12:49:11 PM Interpretation:Negative Performing Lab:[facility] [place], [address] [facility] [place], [place], Phone - [phone], Director Danay Barone Notes/Report: Trich vag by ALEXA Negative Negative VAGINOSIS VAGINITIS PLUS Reviewed date:05/03/2023 01:34:36 PM Interpretation:BV Performing Lab:Testing performed or reported by [facility], a Service of [facility], [address] [place] [address] [place] [address] Junito Milian MD, Diamond Assorter [facility]# [id number] Notes/Report: BACTERIAL VAGINOSIS POSITIVE (NEG) Bacterial vaginosis targets by PCR detected in this patient's sample. Note: This assay uses real time venetian blind machine operator-mediated amplification (TMA) for detection and quantification of ribosomal RNA from bacteria associated with bacterial vaginosis (BV), including Lactobacillus (L. gasseri, L. crispatus, and L. jensenii), Gardnerella vaginalis, and Atopobium vaginae. MICHAEL SPECIES GROUP NEGATIVE (NEG) No michael species group (C. albicans, C. tropicalis, C. parapsilosis, C. dubliniensis) targets by PCR detected in this patient's sample. MICHAEL GLABRATA NEGATIVE (NEG) No Michael glabrata targets by PCR detected in this patient's sample. TRICHOMONAS VAGINALIS NEGATIVE (NEG) No Trichomonas vaginalis targets by PCR detected in this patient's sample. Note: This assay uses real time venetian blind machine operator-mediated amplification (TMA) for detection and quantification of ribosomal RNA from organisms associated with Michael species group (C. albicans, C. tropicalis, C. parapsilosis, C. dubliniensis), Michael glabrata, and Trichomonas vaginalis. C.TRACHOMATIS AMP PROBE NEGATIVE (NEG) No Chlamydia Trachomatis RNA detected in this patient's sample (REFERENCE RANGE/NORMAL VALUE: NOT DETECTED) Note: This test uses venetian blind machine operator- mediated amplification method to detect rRNA from C. Trachomatis N.GONORRHOEAE AMP PROBE NEGATIVE (NEG) No Neisseria Gonorrhoeae RNA detected in this patient's sample (REFERENCE RANGE/NORMAL VALUE: NOT DETECTED) NOTE: This test uses venetian blind machine operator-mediated amplification method to detect rRNA from N.Gonorrhoeae. A negative result does not preclude infection. In the case of a negative urine result, testing of an endocervical(female) or urethral (male) specimen is recommended if there is high clinical suspicion of infection. Due to very high sensitivity of Nucleic Acid Amplification Test, false positive results may occur. Therefore, specimen handling is extremely important. In patients in whom the disease is unlikely, additional sample for testing should be considered after an initial positive result. The performance characteristics of this test have not been evaluated in children. The Aptima Combo2 assay is not intended for the evaluation of suspected sexual abuse or for other medico-legal indications. The ordering provider should assess if the patient had consensual sex without risk of sexual abuse. Consult the [facility] if needed. Contact phone number . Therapeutic failure or success cannot be determined with the Aptima Combo2 assay since nucleic acid may persist following appropriate antimicrobial therapy. The Centers for Disease Control and Prevention (CDC) recommends confirmatory retesting using culture or a different nucleic acid amplification test when positive results occur, if indicated. SYPHILIS TESTING Reviewed date:05/03/2023 11:33:39 AM Interpretation:negative Performing Lab:Testing performed or reported by [facility], a Service of [facility], [facility] Kaleigh [facility] [place] [address] Junito Milian MD, Diamond Assorter [facility]# [id number] Notes/Report: SYPHILIS SCREEN BY NICOLAS NEGATIVE (NEG) Reference range: Negative This test was performed on the untapt Mix Maker immunoassay system. RPR TITER RESULT NOT INDICATED TPPA RESULT NOT INDICATED SYPHILIS INTERPRETATION Indicative of th e absence of infection with Treponemal pallidum. Test may be negative in cases of incubating or early primary syphilis. Consider repeat testing in several weeks if clinical suspicion is high. HIV ANTIBODY/ANTIGEN, 4TH GE NERATION Reviewed date:05/03/2023 11:33:55 AM Interpretation:negative Performing Lab:Testing performed or reported by [facility], a Service of [facility], [facility] [place] [address] Junito Milian MD, Diamond Assorter [facility]# [id number] Notes/Report: RESULT 4TH GEN HIV AB-AG NEGATIVE (NEG) Negative for antibodies to HIV 1 and HIV 2 and P24 antigen. Reference range: Negative Additional note: Written patient authorization is required for each separate release of this test result. This test was performed on the Juv Acessórios immunoassay system. HEPATITIS C ANTIBODY Reviewed date:05/03/2023 11:34:06 AM Interpretation:negative Performing Lab:Testing performed or reported by [facility], a Service of [facility], [facility] [place] [address] Junito Milian MD, Diamond Assorter [facility]# [id number] Notes/Report: ANTI-HEPATITIS C NEGATIVE (NEG) Reference range: Negative This test was performed on the Juv Acessórios immunoassay system. HPV HIGH RISK, Cervix Reviewed date:05/10/2023 04:41:44 PM Interpretation:negative Performing Lab:[facility], [employer], [place], [address] Farhad Mendes DO Notes/Report: HPV HIGH RISK NEGATIVE NEGATIVE HPV High Risk DNA Probe Assay SEX: F : 1985 AGE: 37 [id number] CLINIC ID: [id number] SS: [facility]IC[facility] COL[facility] BY: Specimen Source: Cervix Specimen Type: ThinPrep Pap Correlating Pap: [id number] Additional High Risk Subtypes* NEGATIVE * Includes 31,33,35,39,45,51,52,56, 58,59,66,68 Subtype 16 NEGATIVE Subtype 18 NEGATIVE THINPREP PAP TEST, Cervix Reviewed date:05/10/2023 04:42:03 PM Interpretation:NIL/BV Performing Lab:[place], [employer], [place], [address] Farhad Mendes DO Notes/Report: THINPREP PAP TEST NEGATIVE/BACTERIAL VAGINOSIS NEGATIVE -- THIN PREP PAP TEST -- SEX: F : 1985 AGE: 37 [id number] CLINIC ID: [id number] SS: PHYSICIAN: LAYNE NEGRETE- COLLECTED BY: Negative for Intraepithelial Lesion or Malignancy Additional Findings: Endocervical Material Present Shift in Vaginal Gerri Suggestive of Bacterial Vaginosis Specimen Adequacy: Satisfactory for Evaluation Clinical Note: HPV SdnoxwmW64.419 Encounter for gynecological examination (general) (routine) without abnormal ozyzbcfvG50.59 Encounter for screening for other viral diseases, [facility] Specimen Source: Cervix Visit Type: Routine Performed by: ZIYAD Vincent (ASCP) (Electronic Signature 05/05/2023 07:09) Reason For Referral No Information Medications Medication SIG (Take, Route, Frequency, Duration) Notes Start Date End Date Status metroNIDAZOLE 500 MG 1 tablet Orally Twice a day, every 12 hours for 7 days 05/03/2023 Not-Taking Nexplanon inserted 2019 Active Social History Sex Assigned At : Social History Observation Description Sex Assigned At Female Vital Signs Blood pressure diastolic 66 mm Hg 10/25/2023 Height 5'1 in 10/25/2023 Blood pressure systolic 142 mm Hg 10/25/2023 Weight 154.8 lbs 10/25/2023 BMI 29.25 kg/m2 10/25/2023 Encounters Encounter Location Date Provider Diagnosis [address] [id number] 05/01/2023 Layne Negrete Encounter for gynecological examination (general) (routine) without abnormal findings Z01.419 ; Screening for other viral diseases Z11.59 ; Encounter for screening for human papillomavirus (HPV) Z11.51 ; Encounter for screening for human immunodeficiency virus [HIV] Z11.4 ; Encounter for screening for infections with a predominantly sexual mode of transmission Z11.3 and Encounter for screening for other infectious and parasitic diseases [facility] [id number] 10/25/[facility]23 MIGUEL A JONES Encounter for screen ing for infections with a predominantly sexual mode of transmission Z11.3 ; Counseling, unspecified Z71.9 ; Other problems related to lifestyle Z72.89 ; Encounter for test, result negative Z32.02 ; Urinary frequency R35.0 ; Encounter for test, result unknown Z32.00 and Encounter for screening for other viral diseases Z11.59 [facility] [address] [place] [id number] 05/03/2023 Layne Negrete [facility] [id number] 05/10/2023 Layne Negrete [facility] [address] [place] [phone] 10/26/2023 MIGUEL A JONES Assessments Encounter Date Diagnosis (ICD Code) Assessment Notes Treatment Notes Treatment Clinical Notes 05/01/2023 Encounter for gynecological examination (general) (routine) without abnormal findings (ICD-10 - Z01.419) Reviewed preventative screening recommendations and breast self exam. Encouraged yearly preventative care visit. Advised of method of communicating test results. 10/25/2023 Encounter for screening for infections with a predominantly sexual mode of transmission (ICD-10 - Z11.3) Discussed STI risks, screenings that are available through [facility] and safe sex. For Hep B and C screening today. Clt aware of lab processing times and how to view results on portal and how positive results will be communicated 10/25/2023 Counseling, unspecified (ICD-10 - Z71.9) 05/01/2023 Screening for other viral diseases (ICD-10 - Z11.59) 10/25/2023 Other problems related to lifestyle (ICD-10 - Z72.89) 10/25/2023 Encounter for test, result negative (ICD-10 - Z32.02) 05/01/2023 Encounter for screening for human papillomavirus (HPV) (ICD-10 - Z11.51) 05/01/2023 Encounter for screening for human immunodeficiency virus [HIV] (ICD-10 - Z11.4) 10/25/2023 Urinary frequency (ICD-10 - R35.0) Will further evaluate with urine culture 05/01/2023 Encounter for screening for infections with a predominantly sexual mode of transmission (ICD-10 - Z11.3) Reviewed STI screening recommendations and available testing through [employer] [facility] [employer] Testing ordered as noted per patient risks and preference. Encouraged safe sex practices. Advised to call for evaluation if any symptoms arise. Reviewed method of communicating results to patient. 10/25/2023 Encounter for test, result unknown (ICD-10 - Z32.00) 10/25/2023 Encounter for screening for other viral diseases (ICD-10 - Z11.59) 05/01/2023 Encounter for screening for other infectious and parasitic diseases (ICD-10 - Z11.8) 05/01/2023 Other General disomfort with pelvic exam, no sharp or significant pain. Pap and VV+ sent. Call if sx persist or worsen, could consider repeating ultrasound and/or pelvic floor physical therapy referral. Recommended book Come As You Are, try lubricant with sex, communicate openly with partner. Advised well-fitting supportive bra, OTC medications if needed for breast tenderness, return for further eval if symptoms persist or worsen. Discussed STI risks, screening, and safe sex 10/25/2023 Other Advised to sche dule for Nexplanon removal- clt not interested in a new BCM start today. Reviewed that BR tenderness and irreg periods can be due to Nexplanon use and with waning hormone levels. Urine PT neg- will check serum hcg for clt's piece of mind Plan Of Treatment No Information Insurance Providers Payer Name Payer Address Payer Phone Subscriber Number Group Number Insured Name Patient Relationship to Insured Coverage Start Date Coverage End Date [place] [address] [place] [id number] Karol Figueredo Self - patient is the insured Medical (General) History Medical History History ICD Code Depression/anxiety PTSD Bipolar disorder Hospitalization History Reason Date(Month/Year) childbirth
--- OUTSIDE RECORDS SUMMARY | 2024-01-29 16:40 | XMS_ITS ---
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 Date 09/26/2024 Urinalysis Reviewed date:10/26/2023 12:34:39 PM Interpretation:Abnormal Performing Lab: Notes/Report: Abnormal Leukocytes 15 Nitrates - Uro 0.2 Protein - pH 5.5 Blood - Spec [place] 1.030 Ketones 5 Bilirubin - Glucose - APTIMA COMBO 2 CT/NG, Throat /Pharyngeal Reviewed date:11/03/2023 09:53:52 AM Interpretation:Negative Performing Lab:[facility], [address], [place], [address] Farhad Mendes DO Notes/Report: GONORRHEA, AMPLIFIED NEGATIVE NEGATIVE CHLAMYDIA, AMPLIFIED NEGATIVE NEGATIVE DNA Test Results SEX: F : 1985 AGE: 37 [id number] CLINIC ID: [id number] SS: PHYSICIAN: MIGUEL A JONES CNM COLLECTED BY: [id number] Specimen Source: Throat/Pharyngeal Specimen Type: Swab, Key PCR Medium Neisseria gonorrhoeae: NEGATIVE Normal Value: Negative Chlamydia trachomatis: NEGATIVE Normal Value: Negative hCG,Beta Subunit, Qnt-[id number] Reviewed date:11/06/2023 12:49:27 PM Interpretation:Negative Performing Lab:[address], Phone - [phone], Director - [facility] Notes/Report: Clinical Information:X/R:[id number] hCG,Beta Subunit,Qnt,Serum <1 Female (Non-) 0 - 5 (Postmenopausal) 0 - 8 . Female () Weeks of Gestation 3 6 - 71 4 10 - 750 5 719 - 6869 6 750 - 14510 7 3533 -915573 8 30769 -684874 9 46246 -812794 10 88673 -739053 12 15282 -930330 14 11258 - 64351 15 51262 - 83966 16 7730 - 26143 17 4613 - 38484 18 6610 - 86537 Kayla ECLIA methodology HBsAg Screen-509146 Reviewed date:11/06/2023 12:49:18 PM Interpretation:Negative Performing Lab:[address], Phone - [phone], Director [facility] Notes/Report: Clinical Information:X/R:[id number] HBsAg Screen Negative Negative Hepatitis B Surf Ab Quant-00 6530 Reviewed date:11/06/2023 12:49:01 PM Interpretation:Immune Performing Lab:[address], Phone - [phone], Director - [facility] Notes/Report: Clinical Information:X/R:[id number] Hepatitis B Surf Ab Quant 6454.0 Immunity>10 mIU /mL Results confirmed on dilution. Status of Immunity Anti-HBs Level Inconsistent with Immunity 0.0 - 10.0 Consistent with Immunity >10.0 Urine Culture, Routine-51819 7 Reviewed date:11/03/2023 12:02:10 PM Interpretation:No growth Performing Lab:[address] [place], Phone - [phone], Director - [facility] Notes/Report: Clinical Information:X/R:[id number] Clinical Information:X/R:[id number] Urine Culture, Routine Final report Result 1 No growth Chlamydia/GC Amplification-1 98123 Reviewed date:11/01/2023 09:18:30 AM Interpretation:Negative Performing Lab:[facility] [place], Pedro [facility] [place], Phone - [phone], - [facility] Notes/Report: Chlamydia trachomatis, ALEXA Negative Negative Neisseria gonorrhoeae, ALEXA Negative Negative Trich vag by [id number] Reviewed date:11/06/2023 12:49:11 PM Interpretation:Negative Performing Lab:[facility], Pedro [facility] [place], Phone - [phone], Director Danay Baroen Notes/Report: Trich vag by ALEXA Negative Negative REASON FOR VISIT Counseling/Testing Medications Medication SIG (Take, Route, Frequency, Duration) Notes Start Date End Date Status metroNIDAZOLE 500 MG 1 tablet Orally Twice a day, every 12 hours for 7 days 05/03/2023 Not-Taking Nexplanon inserted 2019 Active Social History Sex Assigned At : Social History Observation Description Sex Assigned At Female Vital Signs Blood pressure systolic 142 mm Hg 10/25/19 24 Blood pressure diastolic 66 mm Hg 024 Height 5'1 in 10/25/2023 Weight 154.8 lbs 10/25/2023 BMI 29.25 kg/m2 10/25/2023 Encounters Encounter Location Date Provider Diagnosis [address] [phone] 10/25/2023 MIGUEL A JONES Encounter for scre ening for infections with a predominantly sexual mode of transmission Z11.3 ; Counseling, unspecified Z71.9 ; Other problems related to lifestyle Z72.89 ; Encounter for test, result negative Z32.02 ; Urinary frequency R35.0 ; Encounter for test, result unknown Z32.00 and Encounter for screening for other viral diseases Z11.59 Assessments Encounter Date Diagnosis (ICD Code) Assessment Notes Treat ment Notes Treatment Clinical Notes 10/25/2023 Encounter for screening for infections with a predominantly sexual mode of transmission (ICD-10 - Z11.3) Discussed STI risks, screenings that are available through [facility] and safe sex. For Hep B and C screening today. Clt aware of lab processing times and how to view results on portal and how positive results will be communicated 10/25/2023 Counseling, unspecified (ICD-10 - Z71.9) 10/25/2023 Other problems related to lifestyle (ICD-10 - Z72.89) 10/25/2023 Encounter for test, result negative (ICD-10 - Z32.02) 10/25/2023 Urinary frequency (ICD-10 - R35.0) Will further evaluate with urine culture 10/25/2023 Encounter for test, result unknown (ICD-10 - Z32.00) 10/25/2023 Encounter for screening for other viral diseases (ICD-10 - Z11.59) 10/25/2023 Other Advised to schedule for Nexplanon removal- clt not interested in a new BCM start today. Reviewed that BR tenderness and irreg periods can be due to Nexplanon use and with waning hormone levels. Urine PT neg- will check serum hcg for clt's piece of mind Plan Of Treatment Treatment Notes Assessment Notes Encounter for screening for infections with a predominantly sexual mode of transmission Discussed STI risks, screenings that are available through [facility] and safe sex. For Hep B and C screening today. Clt aware of lab processing times and how to view results on portal and how positive results will be communicated Urinary frequency Will further evaluat e with urine culture Other Advised to schedule for Nexplanon removal- clt not interested in a new BCM start today. Reviewed that BR tenderness and irreg periods can be due to Nexplanon use and with waning hormone levels. Urine PT neg- will check serum hcg for clt's piece of mind Next Appt Details Follow Up: soon, Reason: Nex planon removal Progress Notes * MIGUEL A ROBERTS KarolDOB :1985 (37 yo F)Acc No.[id number]:10/25/2023 Progress Notes Patient:?Stone PERAZA nnifer Provider:?MIGUEL A JONES :1985???Age:37 Y???Sex:Female D ate:10/25/2023 Address:[facility] [place] , [id number] Subjective: * Chief Complaints: * ???Counseling/Testing * HPI: ???Visit Narrative:?Reason for the visit:?Possible infection.?Current form of control:?Nexlanon - per client it was inserted 6 years ago and 04/2023..?Presenting Symptoms:?Frequent urination, abdominal cramping, more of an appetite, lack of sleep lately, multiple missed periods..?LMP:?03/27/2023 -2 days of dark spotting..?Last date of UPI:?10/24/23?.?Other Notes for the Clinician:?Client discloses to having a fpc partner, but she is aware her partner has a long lines operator partner. Client states she is on anxiety/ depression medication along with painmedication for her leg, she fell recently.?Aptima/ Pt - per client urinetests always comer back negative for both her pregancies only showed up with BW Nexplanon placed 04/2018 per clt. Clt reports some irreg bleeding, recent BR tenderness. Notes some urinary frequency and sense of pressure. Denies any vaginal symptoms Current Nexplanon inserted around 04/2018 per clt. Is over due for removal. * ROS:?General/Constitutional:?Comments?See HPI for details.? * Medical History:? 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 control:?Nexplanon, Mirena intrauterine device, Ortho Evra patch.?Last menstrual period:?03/27/23.?Last pap smear date:?04/2023 NIL, HPV neg due NIL, HPV dxy5187 NIL, HPV omx3357 ASCUS, HPV positive (treated w/ LEEP and repeat pap NIL).?Menarche: ?Age of menarche?12 ???Periods:?Irregular..?Sexual activity:?with men.?Sexually Transmitted Diseases (STDs):?Human papilloma virus (HPV)/condyloma.?Unprotected sex in the last 5 days?:?yes.?Unprotected sex in the past 10 days?:?yes.? * OB History:?Total pregnancies:?4.?Total living children:?4.? # 1:?normal spontaneous vaginal delivery ().? # 2:?normal spontaneous vaginal delivery ().? # 3:?normal spontaneous vaginal delivery ().? # 4:?normal spontaneous vaginal delivery ().? * Surgical History:?No Surgica l History documented. * Hospitalization/Major Diagno stic Procedure:?childbirth * Family History:?Father: hear t disease.?Siblings: sister: diabetes mellitus.? * Social History:?Food Access:?Food Access?The Client's current access to food is?Secure Food Access ???Housing:?Housing?The client's current living situation is:?stable housing ???Reproductive Life Plan:?Reproductive Life Plan?Do you want to have children??No, I don't want to have children ?How sure are you that you will be able to use your control method without any problems??Very sure ?People's plans change. Is it possible you or your partner could ever decide to become ??No ???Sexual History:?Sexual History?Sexual History Reviewed:?Partners, Practices, Protection/Past STIs ?Currently sexually active??Yes ?Sexually active with:?Men ?Number of male partners?1 ?Your sexual activities include:?oral intercourse, vaginal intercourse ?Do you use condoms??No ?Date of last unprotected intercourse:?10/24/2023 ?Number of partners in past 3 months:?1 ?Number of partners in past year:?1 ?Does your partner(s) currently have any STIs??No ???HIV Risk Assessment:?Additional Questions?Is an HIV Risk Assessment being conducted??No ???PrEP for HIV:?PrEP for HIV?Is the client interested in beginning/continuing PrEP for HIV??No ???Relationships:?Relationships?Has the client experienced any of the following:?Client has never experienced harmful relationships ???Human Trafficking:?Human Trafficking?Experienced:?No ???Tobacco Use:?Tobacco Use?Do you/have you used tobacco??Yes, currently ?How long have you been smoking (years)??20 ?How many cigarettes do you smoke per day??0 - 10 ?Tobacco Smoking Status?Current every day smoker ???Drugs/Alcohol:?Drug/Alcohol Use?Do you or have you used drugs??Yes, currently ?By what route are you taking drugs? Please check all that apply:?Smoking ?Which drug(s) do you smoke??Marijuana ?When did you last use?Do you want to quit drugs??No ?Do you or have you used alcohol??Yes, currently ???Counseling Provided:?Counseling Provided?Please indicate the length of time, in minutes, that counseling was provided.?6 ?Counseling Was Provided By:?lydper ???Aptima/ pt. * Medications:?TakingNexplanon , Notes to Pharmacist: inserted 2019Taking Nexplanon , Notes to Pharmacist: inserted 2019Not-Taking/PRNmetroNIDAZOLE 500 MG Tablet 1 tablet Orally Twice a day, every 12 hours Medication List reviewed and reconciled with the patientNot-Taking/PRN metroNIDAZOLE 500 MG Tablet 1 tablet Orally Twice a day, every 12 hours Medication List reviewed and reconciled with the patient * Allergies:?Coconut Oilno[All ergies Verified] Objective: * Vitals:?BP:142/66mm Hg, Ht: 5'1 , Wt:154.8lbs, BMI:29.25Index, Ht-cm: 154.94, Wt-k.22. * Examination: ???General Examination: ?GENERAL APPEARANCE:?in no acute distress.?PSYCH:? alert, oriented.? Assessment: * Assessment: 1.?Encounter for screening f or infections with a predominantly sexual mode of transmission - Z11.3 (Primary)???2.?Counseling, unspecified - Z71.9???3.?Other problems related to lifestyle - Z72.89???4.?Encounter for test, result negative - Z32.02???5.?Urinary frequency - R35.0???6.?Encounter for test, result unknown - Z32.00???7.?Encounter for screening for other viral diseases - Z11.59??? Need 2 out of 3 Sections fro m A-C Section A) Problems (only need one from below) One acute or uncomplicated illness/injury Section B) Data (at least one of the following categories in this section) Category 1: (Choose 2 of the following): Order unique tests Section C) Risk Document low risk of morbidity/mortality Plan: * Treatment: ? Value Reference Range ?CHLAMYDIA, Amplified NEGATIVE NE GATIVE - * ?GONORRHEA, Amplified NEGATIVE NE GATIVE - * This lab was reviewed by LIUDMILA POZO on 11/03/2023 at 09:53 AM EDT ?LAB: Chlamydia/GC Amplification-[id number] (Collection Date & Time - 10/25/2023 03:16 PM)* ? Value Reference Range ?Chlamydia trachomatis, ALEXA Negative Negative - * ?Neisseria gonorrhoeae, ALEXA Negative Negative - * This lab was reviewed by LIUDMILA POZO on 11/01/2023 at 09:18 AM EDT ?LAB: Trich vag by [id number] (Collection Date & Time - 10/25/2023 03:16 PM) * ? Value Reference Range ?Trich vag by ALEXA Negative Negati ve - * This lab was reviewed by LIUDMILA POZO on 11/06/2023 at 12:49 PM EDT Notes: Discussed STI risks, screenings that are available through [facility] and safe sex. For Hep B and C screening today. Clt aware of lab processing times and how to view results on portal and how positive results will be communicated ??2.?Encounter for test, result negative?LAB: Test, Urine (Collection Date & Time - 10/25/2023)?Negative* ? Value Reference Range ? Test, Urine neg * ?Lot # [id number] * ?Exp. Date 09/26/2024 3.?Urinary frequency?LAB: Urine Culture, Routine-[id number] (Collection Date & Time - 10/25/2023 03:16 PM)* ? Value Reference Range ?Urine Culture, Routine Final report - * ?Result 1 No growth - * MIGUEL A JONES 10/27/2023 10:41:00 AM EDT > No UTIThis lab was reviewed by MIGUEL A JONES on 11/03/2023 at 12:02 PM EDT ?LAB: Urinalysis (Collection Date & Time - 10/25/2023)?Abnormal* ? Value Reference Range ?Leukocytes 15 * ?Nitrates - * ?Uro 0.2 * ?Protein - * ?pH 5.5 * ?Blood - * ?Spec [place] 1.030 * ?Ketones 5 * ?Bilirubin - * ?Glucose - Notes: Will further evaluate with urine culture??4.?Encounter for test, result unknown?LAB: hCG,Beta Subunit, Qnt-[id number] (Collection Date & Time - 10/25/2023 03:16 PM)* ? Value Reference Range ?hCG,Beta Subunit,Qnt,Serum <1 - mIU/mL * MIGUEL A JONES 10/26/2023 12:27:56 PM EDT > blood test is negativeThis lab was reviewed by MIGUEL A JONES on 11/06/2023 at 12:49 PM EDT 5.?Encounter for screening for other viral diseases?LAB: HBsAg Screen-[id number] (Collection Date & Time - 10/25/2023 03:16 PM)* ? Value Reference Range ?HBsAg Screen Negative Negative - * This lab was reviewed by LIUDMILA POZO on 11/06/2023 at 12:49 PM EDT ?LAB: Hepatitis B Surf Ab Quant-[id number] (Collection Date & Time - 10/25/2023 03:16 PM)* ? Value Reference Range ?Hepatitis B Surf Ab Quant 6454.0 Immunity>10 - mIU/mL * MIGUEL A JONES 10/26/2023 12:28:36 PM EDT > you are showing immunity to Hep B. No concernsThis lab was reviewed by MIGUEL A JONES on 11/06/2023 at 12:49 PM EDT 6.?Others? Notes: Advised to schedule for Nexplanon removal- clt not interested in a new BCM start today. Reviewed that BR tenderness and irreg periods can be due to Nexplanon use and with waning hormone levels. Urine PT neg- will check serum hcg for clt's piece of mind?? * Procedure Codes:?84286 Pregn ashley, [id number] Urine Dipstick * Follow Up:?soon (Reason: Nex planon removal) * Billing Information: * Visit Code:? 54984 Existing - Low Complexity (IN USE). * Procedure Codes:? 51053 , Urine. 01729 Urine Dipstick. * Sign off status: Completed true * Provider:TAM JONES Date:?10/25/2023 Generated for Nancy paredes/Caron/Alvinitting on:?01/29/2024 04:40 PM EST History and Physical Notes * HPI (History of Present Illness) Category Sub-Category Detail Notes Visit Narrative Reason for the visit: Possible i nfection Current form of control: Nexlanon - per client it was inserted 6 years ago and 04/2023. Presenting Symptoms: Frequent urination, abdominal cramping, more of an appetite, lack of sleep lately, multiple missed periods. Other Notes for the Clinician: Client di scloses to having a long lines operator partner, but she is aware her partner has a long lines operator partner. Client states she is on anxiety/ depression medication along with painmedication for her leg, she fell recently LMP: 03/27/2023 -2 days of dark spotting. Last date of UPI: 10/24/23 Examination Category Sub-Category Detail Notes General Examination GENERAL APPEARANCE: in no ac jose alberto distress PSYCH: alert, oriented
--- OUTSIDE RECORDS SUMMARY | 2024-01-29 16:40 | XMS_ITS ---
Author Organization [facility] Address [address] [phone] Care Team Providers Care Network Control Technician Name Role Phone MIGUEL A JONES Unavailable [phone] REASON FOR VISIT lab orders Social History Sex Assigned At : Social History Observation Description Sex Assigned At Female Encounters Encounter Location Date Provider Diagnosis [facility] [address] [phone] 10/26/2023 MIGUEL A JONES Plan Of Treatment No Information Progress Notes * MIGUEL A STEVENSONADO KarolDOB :1985 (37 yo F)Acc No.[id number]:10/26/2023 Patient:?Stone PERAZA nancyaspen :1985???Age:37 Y???Sex:Female Address:[address] [place] [address] [place], [phone] * true * Date:? Generated for Nancy paredes/Caron/eTransmitting on:?01/29/2024 04:39 PM EST
== END 2024-01-29 16:41 | disposition left against medical advice (07) ==
PROVIDERS: Emergency Provider Emergency Medicine
DX: Z53.21 Procedure and treatment not carried out due to patient leaving prior to being seen by health care provider (principal)

== ENCOUNTER 2024-08-23 05:35 | Emergency (ER) | payer MEDICAID, SELFPAY ==
--- NOTE | ~2024-08-23 | XR_ITS ---
CLINICAL HISTORY: cp cough 1 view chest x-ray Comparison: None Findings: Portions of the exam are obscured by overlying material. The lungs are clear. Heart size is normal. No acute fracture. IMPRESSION: 1. No acute findings. This document has been electronically signed by: Jovon Julian MD on 08/23/2024 06:43:34
[2024-08-23 05:38] VITALS: BP 164/102; PULSE 96; RESP 18; TEMP 36.9; O2SAT 97; BMI 27.4
--- NOTE | 2024-08-23 05:41 | ECG_ITS ---
Test Reason : CP/SOB Blood Pressure : */* mmHG Vent. Rate : 79 BPM Atrial Rate : 79 BPM P-R Int : 126 ms QRS Dur : 70 ms QT Int : 336 ms P-R-T Axes : -29 79 19 degrees QTcB Int : 385 ms Normal sinus rhythm Normal ECG When compared with ECG of 06-Jun-2023 09:54, No significant change was found Referred By: Generic ED Physician Electronically Signed By: MARICEL DIAS MD
[2024-08-23 06:41] LABS: Influenza A PCR NEGATIVE (Negative); Influenza B PCR NEGATIVE (Negative); Resp Syncy Virus RNA Qual PCR NEGATIVE (Negative); SARS COV2 PCR INHOUSE NEGATIVE (Negative)
[2024-08-23 07:00] VITALS: PULSE 89; RESP 18; O2SAT 99
[2024-08-23] MEDS: Albuterol Sulfate 2.5 MG, Albuterol Sulfate (0.083%) 2.5 MG 5 MG INHALE (07:04)
--- NOTE | 2024-08-23 07:19 | ED_ITS ---
HPI - URI/Sore Throat General Chief Complaint: Upper Respiratory Symptoms Stated Complaint: resp symptoms- chest pains Time Seen by Provider: 08/23/24 07:02 History of Present Illness HPI Narrative: Patient is a 38-year-old female presents today with having coughing congestion upper respiratory symptoms ongoing for the last 2 days. Using home inhalers with only minimal relief of symptoms. Patient from home. No history of hospitalization. Positive chills. Using home inhaler with moderate relief. Positive sick contact. Related Data Home Medications ?Medication ?Instructions ?Recorded ?Confirmed albuterol sulfate 90 mcg/actuation 1 puff inhalation Q6H PRN wheezing 11/01/23 11/01/23 aerosol inhaler (Ventolin HFA) bupropion HCl 150 mg 24 hr tablet, 150 mg PO QAM 11/01/23 11/01/23 extended release buspirone 5 mg tablet 5 mg PO BID 11/01/23 11/01/23 clonazepam 2 mg tablet 2 mg PO BEDTIME 11/01/23 11/01/23 clonidine HCl 0.1 mg tablet 0.1 mg PO BID PRN anxiety 11/01/23 11/01/23 escitalopram oxalate 5 mg tablet 5 mg PO DAILY 11/01/23 11/01/23 (Lexapro) trazodone 100 mg tablet 100 mg PO BEDTIME 11/01/23 11/01/23 Previous Rx's ?Medication ?Instructions ?Recorded oxycodone 5 mg tablet 5 mg PO Q8H PRN pain #7 tabs 05/15/20 valacyclovir 1 gram tablet 1,000 mg PO Q12H 10 days #20 tabs 05/15/20 ondansetron 4 mg disintegrating 4 mg PO TID PRN nausea and 09/03/20 tablet vomiting 5 days #10 tabs sulfamethoxazole 800 1 tab PO BID uti #14 tabs 09/03/20 mg-trimethoprim 160 mg tablet (Bactrim DS) cefuroxime axetil 500 mg tablet 500 mg PO BID 10 days #20 tabs 09/04/20 lorazepam 1 mg tablet (Ativan) 1 mg PO BID PRN anxiety #14 tabs 09/04/20 acetaminophen 500 mg tablet 500 mg PO Q6H PRN fever or pain 10/06/21 (Tylenol Extra Strength) #14 tabs cyclobenzaprine 5 mg tablet 5 mg PO Q8H PRN pain (scale score 10/06/21 7-10) 5 days #14 tabs lidocaine 5 % topical patch 1 patch topical DAILY PRN pain #30 10/06/21 (Lidoderm) ea naproxen 500 mg tablet 500 mg PO BID PRN pain 10 days #20 10/06/21 tabs erythromycin 5 mg/gram (0.5 %) eye 0.5 inch ophthalmic (eye) QID 7 09/02/22 ointment days #3.5 grams aluminum-mag hydroxide-simethicone 5 ml PO 5XD PRN indigestion #355 mL 12/04/22 200 mg-200 mg-20 mg/5 mL oral susp (Maalox Advanced) ondansetron 4 mg disintegrating 4 mg PO Q6H PRN nausea and 12/04/22 tablet vomiting #10 tabs hydroxyzine HCl 25 mg tablet 25 mg PO TID PRN anxiety #20 tabs 02/26/23 ketorolac 10 mg tablet 10 mg PO TID PRN pain 5 days #15 06/06/23 tabs lidocaine 5 % topical patch 1 patch topical DAILY PRN pain #15 06/06/23 ea naproxen 500 mg tablet (Naprosyn) 500 mg PO BID PRN pain #20 tabs 10/10/23 azithromycin 250 mg tablet See Rx Instructions PO .COMPLEX 08/23/24 upper resp infection #6 tabs ondansetron 4 mg disintegrating 4 mg PO TID PRN nausea and 08/23/24 tablet vomiting 5 days #10 tabs Allergies Allergy/AdvReac Type Severity Reaction Status Date / Time No Known Allergies Allergy Verified 08/23/24 05:41 [No Known Allergies*] Review of Systems Review of Systems: Positive coughing congestion upper respiratory symptoms Yes all other systems are reviewed and are negative PMFSH Past Medical History Attestation statement: The following information was validated with the patient. Medical History No known health problems Surgical History Hx of hand surgery Social History Social History Alcohol intake: current Alcohol intake frequency: holidays/special occasions only Patient Tobacco Use Status: Tobacco use Unknown Substance Use Type: Marijuana Advance Directives: No Advance Directives Information Provided: Yes Do you have a plan to hurt others: No Plan Physical Exam Vital Signs: Vital Signs: Last Vital Signs Temp 98.2 F 08/23/24 07:45 Pulse 105 H 08/23/24 07:45 Resp 18 08/23/24 07:45 BP 122/70 08/23/24 07:45 Pulse Ox 97 08/23/24 07:45 O2 Del Method Room Air 08/23/24 07:45 BMI result Body Mass Index 27.4 Appearance: Alert. Oriented X3. No acute distress. Eyes: Pupils equal, round and reactive to light. ENT: Pharynx minimal redness noted in the posterior pharynx Neck: Normal inspection. Neck supple. No lymph nodes noted. No crepitus CVS: Normal heart rate and rhythm. Pulses normal. Normal S1 and S2 Respiratory: No respiratory distress. Breath sounds normal. No Wheezing. No rales Abdomen: Soft and nontender. No rigidity. No distention. good BS x4 Skin: Skin warm and dry. Normal skin color. Normal skin turgor. Extremities: No lower extremity edema. Neurovascular intact to all extremities. No Lacerations. No Rash Neuro: Oriented X 3. No motor deficit. No sensory deficit. Moving all extermities. No slurred speech Medications Administered Discontinued Medications Generic Name Dose Route Start Last Admin Trade Name Freq PRN Reason Stop Dose Admin Albuterol Sulfate 2.5 mg/ 5 mg 08/23/24 06:59 08/23/24 07:04 Albuterol Sulfate 2.5 mg INHALE 08/23/24 07:00 5 mg ONCE ONE Administration Prednisone 40 mg 08/23/24 07:21 08/23/24 07:43 Prednisone 20 Mg Tablet PO 08/23/24 07:22 40 mg ONCE ONE Administration Medical Decision Making Medical Decision Making [facility] Narrative: Well-appearing no acute distress my interpretation x-ray is grossly negative there is no infiltrate. Patient strep COVID flu were all negative. Neb treatment given. Will give a dose of steroid here in the emergency department. Differential Diagnosis Differential Diagnoses: The differential diagnosis associated with the presentation includes Upper respiratory infection pneumonia Admission/Observation Consideration of admission/observation: Escalation of care including admission/observation considered Lab Data [facility] Lab Attestation statement: I reviewed the patient's lab results. Labs: Lab Results 08/23/24 08/23/24 Range/Units 05:58 07:11 Influenza Type A (PCR) NEGATIVE (Negative) Influenza Type B (PCR) NEGATIVE (Negative) RSV RNA Qual (PCR) NEGATIVE (Negative) SARS-CoV-2 RNA (RT-PCR) NEGATIVE (Negative) S. pyogenes GrpA CLARY Negative (Negative) Independent Interpretation I performed an independent interpretation of an: Plain X-Ray (No pneumonia no pneumothorax) Radiology Impression Discussion of test interpretation with radiology: I have reviewed the radiologist's reading. External Record Review External record reviewed: Office record Discharge Plan Discharge Clinical Impression: Upper respiratory infection Patient Disposition: Home, Self-Care Instructions: Upper Respiratory Infection (DC) Prescriptions: New azithromycin 250 mg tablet See Rx Instructions .ROUTE .COMPLEX Qty: 6 0RF Rx Instructions: take 500 mg today (day 1), then 250 mg for 4 days (days 2-5) ondansetron 4 mg tablet,disintegrating 4 mg PO TID PRN (Reason: nausea and vomiting) 5 Days Qty: 10 0RF No Action valacyclovir 1 gram tablet 1,000 mg PO Q12H 10 Days Qty: 20 0RF oxycodone 5 mg tablet 5 mg PO Q8H PRN (Reason: pain) Qty: 7 0RF sulfamethoxazole-trimethoprim [Bactrim DS] 800-160 mg tablet 1 tab PO BID Qty: 14 0RF ondansetron 4 mg tablet,disintegrating 4 mg PO TID PRN (Reason: nausea and vomiting) 5 Days Qty: 10 0RF cefuroxime axetil 500 mg tablet 500 mg PO BID 10 Days Qty: 20 0RF lorazepam [Ativan] 1 mg tablet 1 mg PO BID PRN (Reason: anxiety) Qty: 14 0RF acetaminophen [Tylenol Extra Strength] 500 mg tablet 500 mg PO Q6H PRN (Reason: fever or pain) Qty: 14 0RF lidocaine [Lidoderm] 5 % adhesive patch,medicated 1 patch topical DAILY MDD remove after 12 hours PRN (Reason: pain) Qty: 30 0RF Rx Instructions: leave on most painful area for up to 12 hrs naproxen 500 mg tablet 500 mg PO BID PRN (Reason: pain) 10 Days Qty: 20 0RF cyclobenzaprine 5 mg tablet 5 mg PO Q8H PRN (Reason: pain (scale score 7-10)) 5 Days Qty: 14 0RF erythromycin 5 mg/gram (0.5 %) ointment 0.5 inch ophthalmic (eye) QID 7 Days Qty: 3.5 0RF ondansetron 4 mg tablet,disintegrating 4 mg PO Q6H PRN (Reason: nausea and vomiting) Qty: 10 0RF alum-mag hydroxide-simeth [Maalox Advanced] 200-200-20 mg/5 mL suspension 5 ml PO 5XD PRN (Reason: indigestion) Qty: 355 0RF Rx Instructions: administer between meals and at bedtime naproxen [Naprosyn] 500 mg tablet 500 mg PO BID PRN (Reason: pain) Qty: 20 0RF hydroxyzine HCl 25 mg tablet 25 mg PO TID PRN (Reason: anxiety) Qty: 20 0RF ketorolac 10 mg tablet 10 mg PO TID PRN (Reason: pain) 5 Days Qty: 15 0RF lidocaine 5 % adhesive patch,medicated 1 patch topical DAILY PRN (Reason: pain) Qty: 15 0RF Rx Instructions: leave on most painful area for up to 12 hrs trazodone 100 mg tablet 100 mg PO BEDTIME bupropion HCl 150 mg tablet extended release 24 hr 150 mg PO QAM clonidine HCl 0.1 mg tablet 0.1 mg PO BID PRN (Reason: anxiety) buspirone 5 mg tablet 5 mg PO BID albuterol sulfate [Ventolin HFA] 90 mcg/actuation HFA aerosol inhaler 1 puff inhalation Q6H PRN (Reason: wheezing) clonazepam 2 mg tablet 2 mg PO BEDTIME Rx Instructions: administer 30 minutes before bedtime escitalopram oxalate [Lexapro] 5 mg tablet 5 mg PO DAILY Referrals: [facility] [Primary Care Provider] - 08/27/24 Print Language: Belarusian
[2024-08-23 07:27] LABS: IDNOW Serial# 58CA691E; Strep A Nucleic Acid Negative (Negative)
[2024-08-23] MEDS: predniSONE 20 MG TABLET 40 MG PO (07:43)
[2024-08-23 07:45] VITALS: BP 122/70; PULSE 105; RESP 18; TEMP 36.8; O2SAT 97
[2024-08-23 08:09] VITALS: BP 122/70; PULSE 105; RESP 18; TEMP 36.8; O2SAT 97
== END 2024-08-23 08:10 | disposition home or self-care (01) ==
PROVIDERS: Emergency Provider Emergency Medicine Emergency Medical Services; PCP Dentist General Practice
DX: J06.9 Acute upper respiratory infection, unspecified (principal); R07.9 Chest pain, unspecified; R06.02 Shortness of breath
CPT/HCPCS: 0241U; 71045; 87651; 93005; 94640; 99284

== ENCOUNTER → 2024-08-23 05:41 | Outpatient (BNV) | payer MEDICAID, SELFPAY | PROVIDERS: Emergency Provider Emergency Medicine Emergency Medical Services; PCP Dentist General Practice; Visit Provider Internal Medicine Cardiovascular Disease | DX: R07.9 Chest pain, unspecified (principal); R06.02 Shortness of breath | CPT/HCPCS: 93010 ==

== ENCOUNTER → 2024-08-23 05:58 | Outpatient (BNV) | payer MEDICAID, SELFPAY | PROVIDERS: PCP Dentist General Practice; Visit Provider Specialist | DX: R07.9 Chest pain, unspecified (principal); R05.9 Cough, unspecified | CPT/HCPCS: 71045 ==

== ENCOUNTER 2024-11-10 09:16 | Emergency (ER) | payer MEDICAID, SELFPAY ==
--- NOTE | 2024-11-10 | ECG_ITS ---
Test Reason : cp Blood Pressure : */* mmHG Vent. Rate : 76 BPM Atrial Rate : 76 BPM P-R Int : 138 ms QRS Dur : 74 ms QT Int : 360 ms P-R-T Axes : -3 70 22 degrees QTcB Int : 405 ms Normal sinus rhythm Normal ECG When compared with ECG of 23-Aug-2024 05:44, No significant change was found Referred By: Generic ED Physician Electronically Signed By: MARICEL DIAS MD
--- NOTE | ~2024-11-10 | XR_ITS ---
CLINICAL HISTORY: SOB chest tightness 1 view chest x-ray Comparison: CR - XR CHEST 1V - 08/23/24 06:03 EDT Findings: The lungs are clear. Heart size is normal. No acute fracture. IMPRESSION: 1. No acute findings. This document has been electronically signed by: Jesus Hernandez MD on 11/10/2024 10:37:12
[2024-11-10 09:29] VITALS: BP 113/67; PULSE 89; RESP 22; TEMP 37; O2SAT 97; BMI 24.6
[2024-11-10 09:57] LABS: MANUAL DIFF FLAG NO
[2024-11-10 10:07] LABS: INTERNATIONAL NORM RATIO 0.9 (0.9-1.1); Prothrombin Time 10.0 SEC (10.9-12.4)
[2024-11-10 10:08] LABS: Hematocrit 37.1 % (37.0-47.0); Hemoglobin 12.5 g/dl (12.0-16.0); Imm Gran Abs Auto 0.02 X10*3/uL (0.00-0.03); Imm Gran Pct Auto 0.2 % (0.0-0.4); Lymphocytes Absolute Auto 1.9 X10*3/uL (1.2-4.9); Mean Corpuscular HGB Conc 33.7 g/dl (31.0-35.0); Mean Corpuscular Hemoglobin 31.2 pg (27.0-33.0); Mean Corpuscular Volume 92.5 fL (80.0-98.0); NRBC Abs Auto 0.000 X10*3/uL (0.0-0.012); NRBC Pct Auto 0.0 /100WBC (0.0-0.2); Platelet Count 256 X10*3/uL (160-400); Red Blood Count 4.01 X10*6/uL (4.20-5.50); White Blood Count 8.3 X10*3/uL (4.8-10.8)
--- OUTSIDE RECORDS SUMMARY | 2024-11-10 10:18 | XMS_ITS | Clinical Summary ---
Author Organization 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 Name Role Phone Unavailable Primary Care Provider Unavailabl e Social History Tobacco Use Types Packs/Day Years Used Date Smoking Tobacco: Never Assessed Comments Unknown Sex and Gender Information Value Date Recorded Sex Assigned at Not on file Legal Sex Female 1:57 PM EST Gender Identity Not on file Sexual Orientation Not on file Plan of Treatment Health Maintenance Due Date Last Done Comments Breast Cancer Screening 1983 DTaP,Tdap,and Td Vaccines (1 - Tdap) 11/27/2002 Hepatitis B Vaccines (1 of 3 - 19+ 3-dose series) 11/27/2002 Cervical Cancer Screening: P ap Smear 11/27/2004 HIV Screening 10/17/2023 Hepatitis C Screening 10/17/2023 Social Influencers of Health Screening 10/17/2023 COVID-19 Vaccine (1 - 2023-2 5 season) 2023 Depression Screening 03/27/2024 Influenza Vaccine (#1) 2024 HIB Vaccines Aged Out No longer eligi ble based on patient's age to complete this topic HPV Vaccines Aged Out No longer eligi ble based on patient's age to complete this topic Hepatitis A Vaccines Aged Out No long er eligible based on patient's age to complete this topic IPV Vaccines Aged Out No longer eligi ble based on patient's age to complete this topic MMR Vaccines Aged Out No longer eligi ble based on patient's age to complete this topic Meningococcal ACWY Vaccine Aged Out N o longer eligible based on patient's age to complete this topic Meningococcal B Vaccine Aged Out No l onger eligible based on patient's age to complete this topic Pneumococcal Vaccine: Pediat rics (0 to 5 Years) and At-Risk Patients (6 to 49 Years) Aged Out No longer eligible b ased on patient's age to complete this topic RSV Immunization Patients Un ema 20 months Aged Out No longer eligible b ased on patient's age to complete this topic Varicella Vaccines Aged Out No longer eligible based on patient's age to complete this topic
--- OUTSIDE RECORDS SUMMARY | 2024-11-10 10:18 | XMS_ITS | Encounter Summary ---
Author Organization [facility] Address [address] [place] [address] Care Team Providers Care Wireless Operator Name Role Phone Unavailable Primary Care Provider Unavailabl e Encounter Details Date Type Department Care Team (Latest Contact Info) Description 05/22/2020 Abstract [facility] CONVERSIONS Dental, Provider, DDS Social History Tobacco Use Types Packs/Day Years Used Date Smoking Tobacco: Never Assessed Comments Unknown Sex and Gender Information Value Date Recorded Sex Assigned at Female 01/24/2022 10:37 AM EDT Legal Sex Female 10:37 AM EDT Gender Identity Female 01/24/2022 10:37 AM EDT Sexual Orientation Straight 01/24/2022 10 :37 AM EDT documented as of this encounter Plan of Treatment Not on file documented as of this encounter Visit Diagnoses Not on filedocumented in this encounter
[2024-11-10 10:29] LABS: Alanine Aminotransferase 21 U/L (0-31); Albumin Level 4.1 g/dL (3.5-5.0); Alkaline Phosphatase 67 U/L (39-117); Anion Gap 15 (12-20); Aspartate Amino Transferase 22 U/L (5-31); Blood Urea Nitrogen 11 mg/dL (9-16); Calcium 8.3 mg/dL (8.4-10.2); Carbon Dioxide 22 mmol/L (22-29); Chloride 107 mmol/L (96-108); Creatinine Clr Calc Pharmacy 80.7; Estimated Glomerular Filt Rate > 60; Magnesium 1.9 mg/dL (1.6-2.6); Potassium 3.7 mmol/L (3.3-5.1); Sodium 140 mmol/L (135-145); Total Protein 6.2 g/dL (6.5-8.0)
[2024-11-10 10:43] LABS: Resp Syncy Virus RNA Qual PCR NEGATIVE (Negative); SARS COV2 PCR INHOUSE NEGATIVE (Negative); Troponin-I High Sensitivity < 2.7 ng/L (<3.5-17.0)
--- NOTE | 2024-11-10 14:09 | ED.CHESTPAIN ---
HPI - Chest Pain General Chief Complaint: Chest Pain Stated Complaint: left side pain + difficulty breathing Time Seen by Provider: 11/10/24 14:13 Source: patient History of Present Illness HPI narrative: 38-year-old female presents for evaluation of chest pain shortness of breath headache and dizziness. She reports having the same symptoms for the past approximately 2 weeks. One-week ago was seen at urgent Care for the same symptoms and prescribed hydroxyzine. Patient states she took this medication and offered her good relief. She is requesting refill of this medication. She does report that some of her symptoms had increased with increased tobacco use. Denies any alcohol or illicit drug use. Currently her symptoms have since resolved. She is requesting discharge home. Related Data Home Medications ?Medication ?Instructions ?Recorded ?Confirmed albuterol sulfate 90 mcg/actuation 1 puff inhalation Q6H PRN wheezing 11/01/23 11/01/23 aerosol inhaler (Ventolin HFA) bupropion HCl 150 mg 24 hr tablet, 150 mg PO QAM 11/01/23 11/01/23 extended release buspirone 5 mg tablet 5 mg PO BID 11/01/23 11/01/23 clonazepam 2 mg tablet 2 mg PO BEDTIME 11/01/23 11/01/23 clonidine HCl 0.1 mg tablet 0.1 mg PO BID PRN anxiety 11/01/23 11/01/23 escitalopram oxalate 5 mg tablet 5 mg PO DAILY 11/01/23 11/01/23 (Lexapro) trazodone 100 mg tablet 100 mg PO BEDTIME 11/01/23 11/01/23 Previous Rx's ?Medication ?Instructions ?Recorded oxycodone 5 mg tablet 5 mg PO Q8H PRN pain #7 tabs 05/15/20 valacyclovir 1 gram tablet 1,000 mg PO Q12H 10 days #20 tabs 05/15/20 ondansetron 4 mg disintegrating 4 mg PO TID PRN nausea and 09/03/20 tablet vomiting 5 days #10 tabs sulfamethoxazole 800 1 tab PO BID uti #14 tabs 09/03/20 mg-trimethoprim 160 mg tablet (Bactrim DS) cefuroxime axetil 500 mg tablet 500 mg PO BID 10 days #20 tabs 09/04/20 lorazepam 1 mg tablet (Ativan) 1 mg PO BID PRN anxiety #14 tabs 09/04/20 acetaminophen 500 mg tablet 500 mg PO Q6H PRN fever or pain 10/06/21 (Tylenol Extra Strength) #14 tabs cyclobenzaprine 5 mg tablet 5 mg PO Q8H PRN pain (scale score 10/06/21 7-10) 5 days #14 tabs lidocaine 5 % topical patch 1 patch topical DAILY PRN pain #30 10/06/21 (Lidoderm) ea naproxen 500 mg tablet 500 mg PO BID PRN pain 10 days #20 10/06/21 tabs erythromycin 5 mg/gram (0.5 %) eye 0.5 inch ophthalmic (eye) QID 7 09/02/22 ointment days #3.5 grams aluminum-mag hydroxide-simethicone 5 ml PO 5XD PRN indigestion #355 mL 12/04/22 200 mg-200 mg-20 mg/5 mL oral susp (Maalox Advanced) ondansetron 4 mg disintegrating 4 mg PO Q6H PRN nausea and 12/04/22 tablet vomiting #10 tabs hydroxyzine HCl 25 mg tablet 25 mg PO TID PRN anxiety #20 tabs 02/26/23 ketorolac 10 mg tablet 10 mg PO TID PRN pain 5 days #15 06/06/23 tabs lidocaine 5 % topical patch 1 patch topical DAILY PRN pain #15 06/06/23 ea naproxen 500 mg tablet (Naprosyn) 500 mg PO BID PRN pain #20 tabs 10/10/23 azithromycin 250 mg tablet See Rx Instructions PO .COMPLEX 08/23/24 upper resp infection #6 tabs ondansetron 4 mg disintegrating 4 mg PO TID PRN nausea and 08/23/24 tablet vomiting 5 days #10 tabs hydroxyzine HCl 25 mg tablet 25 mg PO TID PRN anxiety #20 tabs 11/10/24 Allergies Allergy/AdvReac Type Severity Reaction Status Date / Time No Known Allergies (No Known Allergy Verified 11/10/24 09:29 Allergies*) Review of Systems Cardiovascular: Cardiovascular: Reports chest pain, Denies chest pain at rest and Denies chest pain with activity Gastrointestinal: Gastrointestinal: Denies abdominal pain PMFSH Past Medical History Medical History No known health problems Surgical History Hx of hand surgery Social History Social History Alcohol intake: current Alcohol intake frequency: holidays/special occasions only Patient Tobacco Use Status: Tobacco use Unknown Substance Use Type: Marijuana Advance Directives: No Advance Directives Information Provided: No Physical Exam Vital Signs: Vital Signs: Last Vital Signs Temp 97.4 F 11/10/24 14:18 Pulse 68 11/10/24 14:18 Resp 17 11/10/24 14:18 BP 113/65 11/10/24 14:18 Pulse Ox 98 11/10/24 14:18 O2 Del Method Room Air 11/10/24 14:18 BMI result Body Mass Index 24.6 Const: General: alert, awake and Physically active Resp: Other: Lung sounds clear throughout Cardio: Rate: regular rate Rhythm: regular rhythm Medical Decision Making Medical Decision Making MDM Narrative: 38-year-old female with episodes of chest pain shortness of breath and dizziness. All symptoms have since resolved. Patient is requesting discharge. I reviewed all labs and imaging, no acute process. She feels comfortable with discharge plan home and we will continue with hydroxyzine p.r.n.. She does confirm she has additional medications as prescribed by her PCP and will continue with follow up. She expresses understanding of all discharge instructions and has no further questions at this time. Differential Diagnosis Differential Diagnoses: The differential diagnosis associated with the presentation includes ACS Anxiety Arrhythmia Metabolic abnormality Lab Data MDM Lab Attestation statement: I reviewed the patient's lab results. 11/10/24 09:52 11/10/24 09:52 Labs: Lab Results 11/10/24 Range/Units 09:52 WBC 8.3 (4.8-10.8) X10*3/uL RBC 4.01 L (4.20-5.50) X10*6/uL Hgb 12.5 (12.0-16.0) g/dl Hct 37.1 (37.0-47.0) % MCV 92.5 (80.0-98.0) fL MCH 31.2 (27.0-33.0) pg MCHC 33.7 (31.0-35.0) g/dl RDW 13.5 (11.0-16.0) % Plt Count 256 (160-400) X10*3/uL MPV 10.1 (9.4-12.3) fL Immature Gran % (Auto) 0.2 (0.0-0.4) % Neut % (Auto) 71.8 (45-73) % Lymph % (Auto) 22.4 (20-40) % Hand % (Auto) 4.6 (2-11) % Eos % (Auto) 0.8 (0-4) % Baso % (Auto) 0.2 (0-2) % Lymph # (Auto) 1.9 (1.2-4.9) X10*3/uL Hand # (Auto) 0.4 (0.1-1.2) X10*3/uL Eos # (Auto) 0.1 (0.0-0.4) X10*3/uL Baso # (Auto) 0.0 (0.0-0.2) X10*3/uL Abs Immat Gran (auto) 0.02 (0.00-0.03) X10*3/uL Absolute Neuts (auto) 6.0 (2.0-8.3) x10*3/uL Absolute Nucleated RBC 0.000 (0.0-0.012) X10*3/uL Nucleated RBC % (auto) 0.0 (0.0-0.2) /100WBC PT 10.0 L (10.9-12.4) SEC INR 0.9 (0.9-1.1) Sodium 140 (135-145) mmol/L Potassium 3.7 (3.3-5.1) mmol/L Chloride 107 (96-108) mmol/L Carbon Dioxide 22 (22-29) mmol/L Anion Gap 15 (12-20) BUN 11 (9-16) mg/dL Creatinine 0.80 (0.5-1.4) mg/dL Estim Creat Clear Calc 80.7 Estimated GFR > 60 Random Glucose 140 H (60-115) mg/dL Calcium 8.3 L D (8.4-10.2) mg/dL Magnesium 1.9 (1.6-2.6) mg/dL Total Bilirubin 0.4 (0.0-1.0) mg/dL AST 22 (5-31) U/L ALT 21 (0-31) U/L Alkaline Phosphatase 67 (39-117) U/L Troponin I High Sens < 2.7 (<3.5-17.0) ng/L Total Protein 6.2 L (6.5-8.0) g/dL Albumin 4.1 (3.5-5.0) g/dL Influenza Type A (PCR) NEGATIVE (Negative) Influenza Type B (PCR) NEGATIVE (Negative) RSV RNA Qual (PCR) NEGATIVE (Negative) SARS-CoV-2 RNA (RT-PCR) NEGATIVE (Negative) Radiology Impression Discussion of test interpretation with radiology: I have reviewed the radiologist's reading. Discharge Plan Discharge Clinical Impression: Atypical chest pain, Anxiety Patient Disposition: Home, Self-Care Instructions: Chest Pain (ED), Anxiety (ED) Additional Instructions: Hydroxyzine as directed. Continue current medications as directed. Follow-up with your primary care provider. Call this week to schedule a follow-up appointment. Return to the emergency department if you have any worsening of symptoms, or any concerns. Get well soon! Prescriptions: New hydroxyzine HCl 25 mg tablet 25 mg PO TID PRN (Reason: anxiety) Qty: 20 0RF No Action valacyclovir 1 gram tablet 1,000 mg PO Q12H 10 Days Qty: 20 0RF oxycodone 5 mg tablet 5 mg PO Q8H PRN (Reason: pain) Qty: 7 0RF sulfamethoxazole-trimethoprim [Bactrim DS] 800-160 mg tablet 1 tab PO BID Qty: 14 0RF ondansetron 4 mg tablet,disintegrating 4 mg PO TID PRN (Reason: nausea and vomiting) 5 Days Qty: 10 0RF cefuroxime axetil 500 mg tablet 500 mg PO BID 10 Days Qty: 20 0RF lorazepam [Ativan] 1 mg tablet 1 mg PO BID PRN (Reason: anxiety) Qty: 14 0RF acetaminophen [Tylenol Extra Strength] 500 mg tablet 500 mg PO Q6H PRN (Reason: fever or pain) Qty: 14 0RF lidocaine [Lidoderm] 5 % adhesive patch,medicated 1 patch topical DAILY MDD remove after 12 hours PRN (Reason: pain) Qty: 30 0RF Rx Instructions: leave on most painful area for up to 12 hrs naproxen 500 mg tablet 500 mg PO BID PRN (Reason: pain) 10 Days Qty: 20 0RF cyclobenzaprine 5 mg tablet 5 mg PO Q8H PRN (Reason: pain (scale score 7-10)) 5 Days Qty: 14 0RF erythromycin 5 mg/gram (0.5 %) ointment 0.5 inch ophthalmic (eye) QID 7 Days Qty: 3.5 0RF ondansetron 4 mg tablet,disintegrating 4 mg PO Q6H PRN (Reason: nausea and vomiting) Qty: 10 0RF alum-mag hydroxide-simeth [Maalox Advanced] 200-200-20 mg/5 mL suspension 5 ml PO 5XD PRN (Reason: indigestion) Qty: 355 0RF Rx Instructions: administer between meals and at bedtime naproxen [Naprosyn] 500 mg tablet 500 mg PO BID PRN (Reason: pain) Qty: 20 0RF azithromycin 250 mg tablet See Rx Instructions .ROUTE .COMPLEX Qty: 6 0RF Rx Instructions: take 500 mg today (day 1), then 250 mg for 4 days (days 2-5) ondansetron 4 mg tablet,disintegrating 4 mg PO TID PRN (Reason: nausea and vomiting) 5 Days Qty: 10 0RF hydroxyzine HCl 25 mg tablet 25 mg PO TID PRN (Reason: anxiety) Qty: 20 0RF ketorolac 10 mg tablet 10 mg PO TID PRN (Reason: pain) 5 Days Qty: 15 0RF lidocaine 5 % adhesive patch,medicated 1 patch topical DAILY PRN (Reason: pain) Qty: 15 0RF Rx Instructions: leave on most painful area for up to 12 hrs trazodone 100 mg tablet 100 mg PO BEDTIME bupropion HCl 150 mg tablet extended release 24 hr 150 mg PO QAM clonidine HCl 0.1 mg tablet 0.1 mg PO BID PRN (Reason: anxiety) buspirone 5 mg tablet 5 mg PO BID albuterol sulfate [Ventolin HFA] 90 mcg/actuation HFA aerosol inhaler 1 puff inhalation Q6H PRN (Reason: wheezing) clonazepam 2 mg tablet 2 mg PO BEDTIME Rx Instructions: administer 30 minutes before bedtime escitalopram oxalate [Lexapro] 5 mg tablet 5 mg PO DAILY Stand Alone Forms: Work/School Release Interventions: ED Discharge Assessment Last Done: 11/10/24 14:18 Print Language: [place]
[2024-11-10 14:10] VITALS: BP 113/65; PULSE 68; RESP 17; TEMP 36.3; O2SAT 98
[2024-11-10 14:18] VITALS: BP 113/65; PULSE 68; RESP 17; TEMP 36.3; O2SAT 98
--- NOTE | 2024-11-10 14:22 | PC.NURSE ---
d/c'd from [facility] by provider.
== END 2024-11-10 14:23 | disposition home or self-care (01) ==
PROVIDERS: Emergency Provider Emergency Medicine
DX: R07.89 Other chest pain (principal); F41.9 Anxiety disorder, unspecified; R06.02 Shortness of breath; R51.9 Headache, unspecified
CPT/HCPCS: 36415; 71045; 80053; 83735; 84484; 85025; 85610; 87637; 93005; 99283

== ENCOUNTER → 2024-11-10 09:47 | Outpatient (BNV) | payer MEDICAID, SELFPAY | PROVIDERS: Emergency Provider Emergency Medicine; Visit Provider Internal Medicine Cardiovascular Disease | DX: R07.9 Chest pain, unspecified (principal) | CPT/HCPCS: 93010 ==

== ENCOUNTER → 2024-11-10 10:00 | Outpatient (BNV) | payer MEDICAID, SELFPAY | PROVIDERS: Visit Provider Radiology Diagnostic Radiology | DX: R06.02 Shortness of breath (principal) | CPT/HCPCS: 71045 ==